=== PATIENT | female | born 1945 | race Caucasian/White ===

== ENCOUNTER 2016-08-09 07:09 | Day surgery (SDC) | payer MEDICARE ==
[2016-08-09] MEDS ORDERED: LACTATED RINGERS 1,000 ML IV ONE (07:20)
[2016-08-09] MEDS ORDERED: BSS/LIDOCAINE/EPINEPHRINE 1 ML SYRINGE IO ONE ×2 (08:37)
[2016-08-09] MEDS ORDERED: PROPARACAINE 0.5% OPHTH DROPS 15 ML OPTH ONE (08:37)
[2016-08-09] MEDS ORDERED: CHONDR SULF/HYALURONATE SYRINGE IO ONE (08:37)
[2016-08-09] MEDS ORDERED: TETRACAINE 0.5% OPHTH DROPS 4 ML OPTH ONE (08:37)
[2016-08-09] MEDS ORDERED: levoFLOXacin 0.5% OPHTH DROPS 5 ML OPTH ONE (08:37)
[2016-08-09] MEDS ORDERED: EPINEPHrine 1 MG/ML AMP IO ONE (08:37)
[2016-08-09] MEDS ORDERED: MIDAZOLAM 2 MG/2 ML VIAL IVP ONE (08:48)
== END 2016-08-09 07:10 | disposition home or self-care (01) ==
PROC: 08RK3JZ Replacement of Left Lens with Synthetic Substitute, Percutaneous Approach (ICD-10-PCS; principal; 2016-08-09 08:15)
DX: H26.9 Unspecified cataract (principal); E78.5 Hyperlipidemia, unspecified; I10 Essential (primary) hypertension; Z79.82 Long term (current) use of aspirin
CPT/HCPCS: 66984; 93005; J7120; V2632

== ENCOUNTER 2016-08-23 06:11 | Day surgery (SDC) | payer MEDICARE ==
[2016-08-23] MEDS ORDERED: TROPICAMIDE 1% OPHTH 2 ML DROPS OPTH ONE (06:40)
[2016-08-23] MEDS ORDERED: KETOROLAC 0.45% OPHTH DROPS OPTH ONE (06:40)
[2016-08-23] MEDS ORDERED: CYCLOPENTOLATE 1% OPHTH DROPS 2 ML OPTH ONE (06:40)
[2016-08-23] MEDS ORDERED: LACTATED RINGERS 500 ML IV ONE (06:41)
[2016-08-23] MEDS ORDERED: ePHEDrine 50 MG/ML AMP IVP ONE (07:30)
[2016-08-23] MEDS ORDERED: MIDAZOLAM 2 MG/2 ML VIAL IVP ONE (07:30)
[2016-08-23] MEDS ORDERED: LIDOCAINE-MPF 2% 5 ML VIAL IM ONE (07:30)
[2016-08-23] MEDS ORDERED: PROPARACAINE 0.5% OPHTH DROPS 15 ML OPTH ONE (07:46)
[2016-08-23] MEDS ORDERED: BRIMONIDINE 0.2% OPHTH DROPS 5 ML OPTH ONE (07:46)
[2016-08-23] MEDS ORDERED: EPINEPHrine 1 MG/ML AMP IO ONE (07:46)
[2016-08-23] MEDS ORDERED: TETRACAINE 0.5% OPHTH DROPS 4 ML OPTH ONE (07:46)
[2016-08-23] MEDS ORDERED: levoFLOXacin 0.5% OPHTH DROPS 5 ML OPTH ONE (07:46)
[2016-08-23] MEDS ORDERED: CHONDR SULF/HYALURONATE SYRINGE IO ONE (07:47)
[2016-08-23] MEDS ORDERED: BSS/LIDOCAINE/EPINEPHRINE 1 ML SYRINGE IO ONE (07:47)
== END 2016-08-23 06:12 | disposition home or self-care (01) ==
PROC: 08RJ3JZ Replacement of Right Lens with Synthetic Substitute, Percutaneous Approach (ICD-10-PCS; principal; 2016-08-23 07:30)
DX: H25.11 Age-related nuclear cataract, right eye (principal); I10 Essential (primary) hypertension; Z79.82 Long term (current) use of aspirin; Z98.42 Cataract extraction status, left eye
CPT/HCPCS: 66984; V2632

== ENCOUNTER 2017-06-05 15:04 | Outpatient (CLI) | payer MEDICARE ==
--- NOTE | 2017-06-08 10:26 | Mammography Report ---
DATE OF SERVICE: 06/05/2017 DIGITAL SCREENING MAMMOGRAM: 06/05/2017. CLINICAL INDICATION: A 72-year-old nulliparous patient for screening. COMPARISON: 04/2016, 04/2015, 04/2014, 05/2012, 02/2011, 12/2009. TECHNIQUE: Routine CC and MLO projections were obtained of the breasts. FINDINGS: Parenchymal tissue within both breasts is heterogeneously dense, which may lower the sensi tivity of mammography; however, there are no dominant masses, suspicious microcalcifications, or secondary sign s of malignancy. In comparison to the previous studies, there are no significant changes. ASSESSMENT: NO MAMMOGRAPHIC EVIDENCE OF MALIGNANCY. NO SIGNIFICANT INTERVAL CHANGES. RECOMMENDATION: Screening mammography is recommended annually. BIRADS category 1 - Negative. STANDARD QUALIFYING STATEMENTS 1. This examination was reviewed with the aid of Computed Aided Detection (CAD). 2. A negative x-ray report should not delay biopsy if a dominant or clinically suspicious mass is pre sent. More than 5% of cancers are not identified by x-ray. 3. Dense breasts may obscure an underlying neoplasm. TD: 06/06/2017 18:41
== END 2017-06-05 15:05 | disposition home or self-care (01) ==
LOC: DI 15:04
PROVIDERS: ATTEND Family Medicine
DX: Z12.31 Encounter for screening mammogram for malignant neoplasm of breast (principal)
CPT/HCPCS: 77067

== ENCOUNTER 2018-05-06 10:37 | Outpatient (CLI) | payer MEDICARE ==
--- NOTE | 2018-05-07 09:13 | DEXA Report ---
Reason: ASYMPTOMATIC MENOPAUSAL STATE Procedure Date: 05/06/2018 Accession Number: [id number] / [id number] Procedure: DEX - Dexa Spine and/or Hip CPT Code: FULL RESULT: EXAM: Dexa Spine and/or Hip DATE: 05/06/2018 11:08 AM CLINICAL HISTORY: ASYMPTOMATIC MENOPAUSAL STATE TECHNIQUE: Dual energy x-ray absorptiometry (DXA) was performed on a [employer] System. Regions measured are the AP Spine, femoral neck, and if needed forearm. COMPARISON: 04/27/2016. In accordance with the International Society for Clinical Densitometry (ISCD) guidelines, data from previous exams may be reanalyzed using current recommendations and techniques. This is done to allow a more accurate basis for comparison with the current study. FINDINGS: The data for the lumbar spine is as follows: BMD (g/cm/cm) T-SCORE Z-SCORE REGION L1 1.081 -0.4 1.4 L2 1.131 -0.6 1.3 L3 1.275 0.6 2.5 L4 1.368 1.4 3.3 TOTAL 1.233 0.4 2.3 NOTE: All evaluable vertebrae are used for classification The data for the hip is as follows: BMD (g/cm/cm) T-SCORE Z-SCORE REGION Neck 0.782 -1.8 0.1 TOTAL 0.925 -0.7 1.1 NOTE: The femoral neck or total proximal femur, whichever is lowest, is used for classification. DXA RESULTS SUMMARY: Spine SCAN DATE AGE BMD CHANGE VS CHANGE VS PREVIOUS PREVIOUS % [birth year]06[birth year]2018 [age] 1[age]233 0.000 0.0 04/27/2016 [age] 1.233 * Denotes significant change at the 95% confidence level. Denotes dissimilar scan types or analysis methods. DXA RESULTS SUMMARY: Hip SCAN DATE AGE BMD CHANGE VS CHANGE VS PREVIOUS PREVIOUS % [birth year]06[birth year]2018 73.1 0.925 -0.004 -0.4 04/27/2016 [age] 0.929 * Denotes significant change at the 95% confidence level. Denotes dissimilar scan types or analysis methods. IMPRESSION: THE WHO CLASSIFICATION BASED ON THE INTERNATIONAL REFERENCE STANDARD IS OSTEOPENIA. THE FRACTURE RISK IS INCREASED. RECOMMENDATION: Patients with diagnosis of osteoporosis or osteopenia should have regular bone mineral density assessment. For those eligible for Medicare, routine testing is allowed once every 2 years. Testing frequency can be increased for patients who have rapidly progressing disease or for those who are receiving medical therapy to restore bone mass. COMMENT: World Health Organization (WHO) definitions for osteoporosis and osteopenia: NORMAL BMD: T-score at -1.0 or higher, fracture risk is low OSTEOPENIA BMD: T-score between -1.0 and -2.5, fracture risk is increased. OSTEOPOROSIS BMD: T-score at -2.5 or lower, fracture risk is high. National Osteoporosis Foundation recommends: 1. Obtain adequate dietary calcium (at least 1200 mg per day) and vitamin D (400-800 international units per day). 2. Participate, as appropriate, in regular weightbearing and muscle-strengthening exercise. 3. Avoid tobacco use and reduce alcohol and caffeine intake. 4. For more detailed information see the website at www.NOF.org.
== END 2018-05-06 10:38 | disposition home or self-care (01) ==
LOC: DI 10:37
PROVIDERS: ATTEND Family Medicine
DX: M85.88 Other specified disorders of bone density and structure, other site (principal)
CPT/HCPCS: 77080

== ENCOUNTER 2018-05-06 10:41 | Outpatient (CLI) | payer MEDICARE ==
--- NOTE | 2018-05-07 08:42 | Mammography Report ---
Reason: SCREENING MAMMO Procedure Date: 05/06/2018 Accession Number: [id number] / [id number] Procedure: SERGIO - Screening Mammo w/Jt CPT Code: FULL RESULT: EXAM: Screening Mammo w/Jt DATE: 05/06/2018 11:51 AM CLINICAL HISTORY: 73 year-old nulliparous female with history of early menses presents for screening. TECHNIQUE: Bilateral CC and MLO views were obtained. COMPARISON: 06/05/2017, 04/27/2016, 05/07/2015, 04/16/2014. FINDINGS: The breasts demonstrate heterogeneously dense fibroglandular parenchyma bilaterally. A coarse typically benign calcification in the left breast is stable. No suspicious masses, clustered microcalcifications, or regions of architectural distortion are identified. IMPRESSION: Benign findings RECOMMENDATION: Routine annual screening unless otherwise clinically indicated. BIRADS CATEGORY 2: Benign findings STANDARD QUALIFYING STATEMENTS: 1. This examination was not reviewed with the aid of Computer-Aided Detection (CAD). 2. A negative or benign imaging report should not delay biopsy if clinically suspicious findings are present. Consider surgical consultation if warranted. More than 5% of cancers are not identified by imaging. 3. Dense breasts may obscure an underlying neoplasm. 4. This examination was reviewed with the aid of 3D breast imaging (tomosynthesis).
== END 2018-05-06 10:42 | disposition home or self-care (01) ==
LOC: DI 10:41
DX: Z12.31 Encounter for screening mammogram for malignant neoplasm of breast (principal)
CPT/HCPCS: 77063; 77067

== ENCOUNTER 2018-08-16 11:06 | Outpatient (CLI) | payer MEDICARE ==
--- NOTE | 2018-08-16 15:13 | Ultrasound Report ---
Reason: RENAL INSUFFICIENCY, HTN Procedure Date: 08/16/2018 Accession Number: [id number] / [id number] Procedure: US - Retroperitoneal CPT Code: FULL RESULT: EXAM: RENAL ULTRASOUND EXAM DATE: 08/16/2018 12:40 PM. CLINICAL HISTORY: Renal insufficiency, hypertension. COMPARISON: None. TECHNIQUE: Real-time scanning was performed with static images obtained. FINDINGS: Right Kidney: 8.8 cm. A few nonobstructing calculi measuring up to 0.4 cm are noted. No hydronephrosis. Left Kidney: 9.9 cm. Simple renal cyst, up to 1.9 cm. No hydronephrosis. Bladder: Bilateral jets seen. The prevoid bladder volume was 95 cc. The postvoid bladder volume was 12 cc. Other: None. IMPRESSION: Small right nonobstructing renal calculi and no hydronephrosis. No bladder outlet obstruction. RADIA
== END 2018-08-16 11:07 | disposition home or self-care (01) ==
LOC: DI 11:06
PROVIDERS: ATTEND Family Medicine
DX: N20.0 Calculus of kidney (principal); N28.9 Disorder of kidney and ureter, unspecified; I10 Essential (primary) hypertension
CPT/HCPCS: 76770

== ENCOUNTER 2019-04-18 08:04 | Outpatient (CLI) | payer MEDICARE ==
[2019-04-18 13:39] LABS: BASOPHILS # (AUTO) 0.1 10^3/uL (0.0-0.1); BASOPHILS % (AUTO) 0.9 %; EOSINOPHILS # (AUTO) 0.3 10^3/uL (0.0-0.7); EOSINOPHILS % (AUTO) 4.1 %; HGB - HEMOGLOBIN 13.3 g/dL (12.0-16.0); LYMPHOCYTES # (AUTO) 2.2 10^3/uL (1.5-3.5); LYMPHOCYTES % (AUTO) 30.8 %; MEAN CORPUSCULAR HEMOGLOBIN 31.7 pg (27.0-31.0); MEAN CORPUSCULAR HGB CONC 33.5 g/dL (32.0-36.0); MEAN CORPUSCULAR VOLUME 94.5 fL (81.0-99.0); MEAN PLATELET VOLUME 11.3 fL (7.9-10.8); MONOCYTES # (AUTO) 0.5 10^3/uL (0.0-1.0); MONOCYTES % (AUTO) 7.7 %; NEUTROPHILS # (AUTO) 3.9 10^3/uL (1.5-6.6); NEUTROPHILS % (AUTO) 56.1 %; PLT - PLATELET COUNT 293 10^3/uL (130-450); RED CELL DISTRIBUTION WIDTH 12.8 % (12.0-15.0)
[2019-04-18 14:32] LABS: ALBUMIN 3.8 g/dL (3.2-5.5); ALBUMIN/GLOBULIN RATIO 1.3 (1.0-2.2); ALKALINE PHOSPHATASE 51 IU/L (42-121); ALT ALANINE AMINOTRANSFERASE 22 IU/L (10-60); AST ASPARTATE AMINOTRANSFERASE 23 IU/L (10-42); BILIRUBIN,TOTAL 0.6 mg/dL (0.2-1.0); BUN - BLOOD UREA NITROGEN 24 mg/dL (6-20); CALCIUM 9.2 mg/dL (8.5-10.3); CARBON DIOXIDE - CO2 28 mmol/L (21-32); CHLORIDE 101 mmol/L (101-111); CHOL/HDL RATIO 3.2 (<4.4); CHOLESTEROL 195 mg/dL; CREATININE 0.9 mg/dL (0.4-1.0); GFR - MDRD 61 (>89); GLUCOSE 92 mg/dL (70-100); HDL CHOLESTEROL 61 mg/dL; LDL CHOLESTEROL,CALCULATED 114 mg/dL; LDL/HDL RATIO 1.9 (<4.4); SODIUM 136 mmol/L (135-145); TOTAL PROTEIN 6.8 g/dL (6.7-8.2); VLDL CHOLESTEROL 20 mg/dL
== END 2019-04-18 23:59 | disposition home or self-care (01) ==
LOC: LAB.WCP 08:04
PROVIDERS: ATTEND Family Medicine
DX: N28.9 Disorder of kidney and ureter, unspecified (principal); I10 Essential (primary) hypertension; E78.5 Hyperlipidemia, unspecified
CPT/HCPCS: 36415; 80053; 80061; 83721; 85025

== ENCOUNTER 2019-05-05 11:55 | Outpatient (CLI) | payer MEDICARE ==
--- NOTE | 2019-05-05 15:49 | MRI Report ---
Reason: HEADACHE, FAM HISTORY OF CEREBRAL ANEURYSM Procedure Date: 05/05/2019 Accession Number: [id number] / [id number] Procedure: MRI - Angio Brain W/O (MRA) CPT Code: Final Report FULL RESULT: EXAM MRA BRAIN EXAM DATE: 05/05/2019 01:01 PM. CLINICAL HISTORY: Headache, family history of cerebral aneurysm. COMPARISON: None. TECHNIQUE: Multiplanar, multisequence MRA sequences of the brain were performed. Other: None. Post-processing: Multiplanar 3D MIP reconstructions. IV Contrast: None. FINDINGS: The cerebral vascular flow voids are patent. There is a mild degree of generalized volume loss. The right vertebral artery intradural segment is smooth and nonstenotic. The left vertebral artery intradural segment is smooth and nonstenotic. The left posterior-inferior cerebellar artery is without flow-limiting stenosis. The right posterior inferior cerebellar artery is without flow-limiting stenosis. The basilar artery is without flow-limiting stenosis. There are small bilateral anterior inferior cerebellar arteries suggested. Overall, they are somewhat poorly demonstrated which is secondary to their small size. Therefore, their evaluation is limited. The right posterior communicating artery is without flow-limiting stenosis. The right P1 and P2 segments of the right posterior cerebral artery are without flow-limiting stenosis. There is a mild conical outpouching at the origin of the left posterior communicating artery measuring approximately 2 x 2 mm. The differential diagnosis would include infundibulum versus small saccular aneurysm. Overall infundibulum would be somewhat favored. There is mild conical outpouching at the origin of the right posterior communicating artery measuring 1.5 x 1.5 mm. The differential diagnosis would include infundibulum versus small saccular aneurysm. The left P1 and P2 segments of the left posterior cerebral artery are without flow-limiting stenosis. The left intracranial internal carotid artery is smooth and nonstenotic. The right intracranial internal carotid artery is smooth and nonstenotic. The right M1 and proximal M2 segments of the right middle cerebral artery are smooth and nonstenotic. The left M1 and proximal M2 segments of the left middle cerebral artery are smooth and nonstenotic. The right A1 segment is smooth and nonstenotic. The left A1 segment is smooth and nonstenotic. There is a suggestion of a small anterior communicating artery. There is superimposed motion at this level. The right A2 segment of the right anterior cerebral artery is smooth and nonstenotic. The left A2 segment of the left anterior cerebral artery is smooth and nonstenotic. IMPRESSION: 1. There are small areas of conical outpouching at the origins of the right and left posterior communicating arteries measuring 1.5 x 1.5 and 2 x 2 mm, respectively. The differential diagnosis would include infundibuli versus small saccular aneurysms. 2. There is no hemodynamically significant stenosis within the head.
== END 2019-05-05 11:56 | disposition home or self-care (01) ==
LOC: DI 11:55
PROVIDERS: ATTEND Family Medicine
DX: R51 Headache (principal); R90.89 Other abnormal findings on diagnostic imaging of central nervous system; Z82.49 Family history of ischemic heart disease and other diseases of the circulatory system
CPT/HCPCS: 70544

== ENCOUNTER 2019-05-05 11:56 | Outpatient (CLI) | payer MEDICARE ==
[2019-05-05 19:05] LABS: BILIRUBIN,URINE NEGATIVE (NEGATIVE); GLUCOSE, URINE (UA) NEGATIVE (NEGATIVE); KETONES,URINE (UA) NEGATIVE (NEGATIVE); LEUKOCYTE ESTERASE, URINE NEGATIVE (NEGATIVE); NITRITE,URINE NEGATIVE (NEGATIVE); OCCULT BLOOD,URINE NEGATIVE (NEGATIVE); PH,URINE 7.5 PH (5.0-7.5); PROTEIN,URINE NEGATIVE (NEGATIVE); UROBILINOGEN,URINE 0.2 (NORMAL) E.U./dL (NORMAL)
[2019-05-05 19:06] LABS: CLARITY,URINE CLEAR (CLEAR)
== END 2019-05-05 23:59 | disposition home or self-care (01) ==
LOC: LAB.WCP 11:56
PROVIDERS: ATTEND Nurse Practitioner Family
DX: R35.0 Frequency of micturition (principal)
CPT/HCPCS: 81001; 81003; 87086

== ENCOUNTER 2019-05-26 12:23 | Outpatient (CLI) | payer MEDICARE ==
--- NOTE | 2019-05-27 13:40 | Mammography Report ---
Reason: ANNUAL MAMMOGRAM Procedure Date: 05/26/2019 Accession Number: [id number] / [id number] Procedure: MGN - Screening Mammo Dig Bilat CPT Code: Final Report FULL RESULT: EXAM: Screening Mammo Dig Bilat DATE: 05/26/2019 12:44 PM CLINICAL HISTORY: Routine screening. Nulliparous patient. TECHNIQUE: (B) - Bilateral CC and MLO views were obtained. COMPARISON: 05/06/2018, 06/05/2017, 04/27/2016, 05/07/2015, 04/16/2014, 05/31/2012 and 03/02/2011. PARENCHYMAL PATTERN: (D) - The breasts demonstrate heterogeneously dense fibroglandular parenchyma bilaterally. FINDINGS: No significant interval change. There are no suspicious masses, calcifications, or areas of distortion. IMPRESSION: Negative examination. BI-RADS category 1. RECOMMENDATION: (ANNUAL) - Recommend routine annual screening mammography. BI-RADS CATEGORY: (1) - Negative. STANDARD QUALIFYING STATEMENTS: 1. This examination was not reviewed with the aid of Computer-Aided Detection (CAD). 2. A negative or benign imaging report should not preclude biopsy if clinically suspicious findings are present. 3. Dense breasts may obscure an underlying neoplasm. 4. This examination was reviewed without the aid of 3D breast imaging (tomosynthesis).
== END 2019-05-26 12:24 | disposition home or self-care (01) ==
LOC: DI.N 12:23
DX: Z12.31 Encounter for screening mammogram for malignant neoplasm of breast (principal)
CPT/HCPCS: 77067

== ENCOUNTER 2019-11-13 16:03 | Emergency (ER) | payer MEDICARE ==
[2019-11-13 16:46] LABS: BASOPHILS % (AUTO) 0.4 %; EOSINOPHILS % (AUTO) 0.3 %; HGB - HEMOGLOBIN 13.1 g/dL (12.0-16.0); LYMPHOCYTES # (AUTO) 0.9 10^3/uL (1.5-3.5); LYMPHOCYTES % (AUTO) 8.6 %; MEAN CORPUSCULAR HEMOGLOBIN 31.3 pg (27.0-31.0); MEAN CORPUSCULAR HGB CONC 34.7 g/dL (32.0-36.0); MEAN CORPUSCULAR VOLUME 90.2 fL (81.0-99.0); MEAN PLATELET VOLUME 10.1 fL (7.9-10.8); MONOCYTES # (AUTO) 0.7 10^3/uL (0.0-1.0); MONOCYTES % (AUTO) 6.6 %; NEUTROPHILS # (AUTO) 9.1 10^3/uL (1.5-6.6); NEUTROPHILS % (AUTO) 83.6 %; PLT - PLATELET COUNT 341 10^3/uL (130-450); RED BLOOD COUNT 4.18 10^6/uL (4.20-5.40); RED CELL DISTRIBUTION WIDTH 12.2 % (12.0-15.0); WHITE BLOOD COUNT 10.9 x10^3/uL (4.8-10.8)
[2019-11-13 16:58] LABS: ALBUMIN 3.6 g/dL (3.2-5.5); ALBUMIN/GLOBULIN RATIO 0.9 (1.0-2.2); BILIRUBIN,TOTAL 0.5 mg/dL (0.2-1.0); CALCIUM 8.7 mg/dL (8.5-10.3); CREATININE 1.2 mg/dL (0.4-1.0); TOTAL PROTEIN 7.5 g/dL (6.7-8.2)
[2019-11-13] MEDS ORDERED: SODIUM CHLORIDE 0.9% 1,000 ML IV STA (17:47)
[2019-11-13 17:53] LABS: BILIRUBIN,URINE NEGATIVE (NEGATIVE); GLUCOSE, URINE (UA) NEGATIVE (NEGATIVE); KETONES,URINE (UA) NEGATIVE (NEGATIVE); LEUKOCYTE ESTERASE, URINE TRACE (NEGATIVE); NITRITE,URINE NEGATIVE (NEGATIVE); OCCULT BLOOD,URINE TRACE-LYSE (NEGATIVE); PROTEIN,URINE NEGATIVE (NEGATIVE); UROBILINOGEN,URINE 0.2 (NORMAL) E.U./dL (NORMAL)
[2019-11-13 17:59] LABS: CLARITY,URINE HAZY (CLEAR)
[2019-11-13 18:05] LABS: BACTERIA,URINE Moderate /HPF (None Seen); RBC,URINE 0-5 /HPF (0-5); SQUAMOUS EPITHELIAL CELL,UR FEW Squamous (<= Few)
--- NOTE | 2019-11-13 18:09 | ED Physician Documentation ---
History of Present Illness - Stated complaint Stated Complaint: FEVER/DIZZINESS - Chief complaint Chief Complaint: General - History obtained from History obtained from: Patient - Additonal information Additional information: Patient comes emergency department complaining of fever and fatigue over the last several days. Patient states that she started with a bump in front of her red right ear and that this went away after a day or two. She never experienced any drainage or swelling of the flesh, but she states that after this resolved, over the next couple of days, she began to feel fatigued and generally sick. She states she has been in bed for the last several days, and running temperatures up to 102-103 every day. She states that she has not had any nausea or vomiting. No back or abdominal pain. No dysuria, but patient does state that she feels as though she is not able to urinate until she begins to dribble urine because her bladder is full. She denies any cough. No sore throa t or rhinorrhea. No chest pain or shortness of breath. No other complaints at this time. Review of Systems Ten Systems: 10 systems reviewed and negative Constitutional: reports: Fever, Myalgias, Fatigue Eyes: reports: Reviewed and negative Ears: reports: Reviewed and negative Nose: reports: Reviewed and negative Throat: reports: Reviewed and negative Cardiac: reports: Reviewed and negative Respiratory: reports: Reviewed and negative GI: reports: Reviewed and negative : reports: Reviewed and negative Skin: reports: Reviewed and negative Musculoskeletal: reports: Reviewed and negative Neurologic: reports: Reviewed and negative Psychiatric: reports: Reviewed and negative Endocrine: reports: Reviewed and negative Immunocompromised: reports: Reviewed and negative PD PAST MEDICAL HISTORY - Past Medical History Cardiovascular: Hypertension, Murmur, Arrhythmia Respiratory: None Endocrine/Autoimmune: None GI: None, Hemorrhoids : None HEENT: Chronic vision loss Psych: None Musculoskeletal: None Derm: Psoriasis - Past Surgical History /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: Hysterectomy HEENT: Cataracts, Other - Present Medications Home Medications: Ambulatory Orders Medication Instructions Recorded Confirmed Aspirin [Aspir 81] 81 mg PO DAILY 05/25/14 08/23/16 Ca/D3/Mag/Zinc/Michelle/Srinivas/Mgbor 2 each PO DAILY 05/25/14 08/23/16 [Caltrate 600+D3+Min Chew Tab] Cholecalciferol (Vitamin D3) 1,000 unit PO DAILY 05/25/14 08/23/16 [] Triamterene/Hydrochlorothiazid 37.5 each PO DAILY 05/25/14 08/23/16 [Triamterene-Hctz 75-50 mg Tab] Losartan Potassium 100 mg PO DAILY 08/23/16 08/23/16 Levofloxacin [Levaquin] 500 mg PO DAILY 10 Days #10 tablet 11/13/19 - Allergies Allergies/Adverse Reactions: Allergies Allergy/AdvReac Type Severity Reaction Status Date / Time adhesive AdvReac Rash Verified 11/13/19 16:22 amoxicillin trihydrate * AdvReac Hives Verified 11/13/19 16:22 [From Augmentin] potassium clavulanate * AdvReac Hives Verified 11/13/19 16:22 [From Augmentin] sulfamethoxazole AdvReac Hives Verified 11/13/19 16:22 [From Septra] trimethoprim [From Septra] AdvReac Hives Verified 11/13/19 16:22 PD ED PE NORMAL - Vitals Vital signs reviewed: Yes - General General: Alert and oriented X 3, No acute distress, Well developed/nourished - HEENT HEENT: Atraumatic, PERRL, EOMI, Moist mucous membranes - Neck Neck: Supple, no meningeal sign - Cardiac Cardiac: RRR, No murmur, Strong equal pulses - Respiratory Respiratory: No respiratory distress, Clear bilaterally - Abdomen Abdomen: Soft, Non tender, Non distended - Back Back: No CVA TTP - Derm Derm: Normal color, Warm and dry, No rash - Extremities Extremities: No deformity, No edema - Neuro Neuro: Alert and oriented X 3, Other (Grossly normal) - Psych Psych: Normal mood, Normal affect Results - Vitals Vitals: Vital Signs - 24 hr 11/13/19 11/13/19 11/13/19 16:16 19:25 19:34 Temperature 36.5 C 37.5 C Heart Rate 64 76 Respiratory 16 17 18 Rate Blood Pressure 129/60 151/75 H O2 Saturation 97 98 11/13/19 11/13/19 19:55 19:58 Temperature Heart Rate Respiratory 17 17 Rate Blood Pressure O2 Saturation Oxygen O2 Source Room air - Labs Labs: Laboratory Tests 11/13/19 11/13/19 11/13/19 16:38 16:38 17:30 WBC 10.9 H RBC 4.18 L Hgb 13.1 Hct 37.7 MCV 90.2 MCH 31.3 H MCHC 34.7 RDW 12.2 Plt Count 341 MPV 10.1 Neut # (Auto) 9.1 H Lymph # (Auto) 0.9 L Centre # (Auto) 0.7 Eos # (Auto) 0.0 Baso # (Auto) 0.0 Absolute Nucleated RBC 0.00 Nucleated RBC % 0.0 Sodium 123 L Potassium 3.3 L Chloride 86 L Carbon Dioxide 24 Anion Gap 13.0 BUN 22 H Creatinine 1.2 H Estimated GFR (MDRD) 44 L Glucose 123 H Calcium 8.7 Total Bilirubin 0.5 AST 33 ALT 36 Alkaline Phosphatase 78 Total Protein 7.5 Albumin 3.6 Globulin 3.9 Albumin/Globulin Ratio 0.9 L Lipase 33 Urine Color YELLOW Urine Clarity HAZY Urine pH 7.0 Ur Specific [place] 1.010 Urine Protein NEGATIVE Urine Glucose (UA) NEGATIVE Urine Ketones NEGATIVE Urine Occult Blood TRACE-LYSE Urine Nitrite NEGATIVE Urine Bilirubin NEGATIVE Urine Urobilinogen 0.2 (NORMAL) Ur Leukocyte Esterase TRACE H Urine RBC 0-5 Urine WBC 6-10 H Ur Squamous Epith Cells FEW Squamous Urine Bacteria Moderate H Ur Microscopic Review INDICATED Urine Culture Comments INDICATED - Rads (name of study) cxr Radiology: Final report received, EMP read indepedently, See rad report (Left lower lobe infiltrate) PD MEDICAL DECISION MAKING - ED course Complexity details: reviewed results, re-evaluated patient, considered differential, d/w patient ED course: Patient was worked up with labs, urinalysis, and chest x-ray. I had received a call from urgent care who had seen the patient before she came here and they stated that they had already done patient's COVID testing. Patient was noted to have a left lower lobe infiltrate and a mild UTI. The patient was started on Levaquin in the emergency department. She was very well-appearing and was feeling better after IV fluids, and I felt she was stable for discharge home. We have discussed that if she develops worsening breathing or in any way feels worse, she should return to the emergency department immediately. Otherwise, she may follow-up with her primary care physician. Departure - Departure Disposition: 01 Home, Self Care Clinical Impression: Pneumonia Qualifiers: Pneumonia type: due to unspecified organism Laterality: left Lung location: lower lobe of lung Qualified Code(s): J18.9 - Pneumonia, unspecified organism Urinary tract infection Qualifiers: Urinary tract infection type: acute cystitis Hematuria presence: without hematuria Qualified Code(s): N30.00 - Acute cystitis without hematuria Condition: Stable Instructions: ED Pneumonia Adult, ED UTI Cystitis Female Prescriptions: Levofloxacin [Levaquin] 500 mg PO DAILY 10 Days #10 tablet Comments: Your blood work looks good. Your chest x-ray shows pneumonia in the left lower portion of your lung, and your urinalysis shows mild infection. Fortunately, these may both be treated with the same antibiotic. Please continue to drink plenty of fluids at home and get rest as needed. Be sure you are taking plenty of deep breaths to keep your lungs aerated, as this will help to aid the antibiotics and getting rid of infection. You may treat your fevers with Tylenol 650 mg every 4 hours and ibuprofen 600 mg every 6 hours. You may use just Tylenol or just ibuprofen if one of them alone keeps the fever under control. Please follow-up with your primary care physician if you are not feeling better after the weekend. Discharge Date/Time: 11/13/19 20:05
--- NOTE | 2019-11-13 18:54 | XRAY Report ---
Reason: cough Procedure Date: 11/13/2019 Accession Number: [id number] / [id number] Procedure: XR - Chest 2 View X-Ray CPT Code: 84125 Final Report FULL RESULT: PROCEDURE: Chest 2 View X-Ray INDICATIONS: cough TECHNIQUE: 2 view(s) of the chest. COMPARISON: None. FINDINGS: Surgical changes and devices: None. Lungs and pleura: There are confluent left lower lobe perihilar opacities consistent with consolidation. Right lung is clear. No pleural effusions or pneumothorax. Mediastinum: Mediastinal contours are normal. Heart size is normal. Bones and chest wall: No suspicious bony abnormalities. Soft tissues appear unremarkable. IMPRESSION: 1. Left lower lobe perihilar consolidation consistent with pneumonia given clinical history. Reviewed by: Estrada Nur MD on 11/13/2019 6:52 PM PDT Approved by: Estrada Nur MD on 11/13/2019 6:52 PM PDT Station ID: [id number]
[2019-11-13] MEDS ORDERED: levoFLOXacin 250 MG TABLET PO STA (19:15)
[2019-11-13 19:35] VITALS: BP 151/75
== END 2019-11-13 20:05 | disposition home or self-care (01) ==
LOC: ED 16:03
DX: J18.9 Pneumonia, unspecified organism (principal); N30.00 Acute cystitis without hematuria; I10 Essential (primary) hypertension; Z79.82 Long term (current) use of aspirin
CPT/HCPCS: 36415; 71046; 80053; 81001; 83690; 85025; 87086; 99284; A9270; 81003

== ENCOUNTER 2020-05-18 08:27 | Outpatient (CLI) | payer MEDICARE ==
--- NOTE | 2020-05-18 09:12 | DEXA Report ---
PROCEDURE: Dexa Spine and/or Hip INDICATIONS: BONE DISORDER TECHNIQUE: Dual energy x-ray absorptiometry (DXA) was performed on a [employer] System. Regions measur ed are the AP Spine, femoral neck, and if needed forearm. COMPARISON: 05/06/2018. FINDINGS: Lumbar Spine: Bone Mineral Density 1.167 g/cm/cm,T score -0.1, there is 5.4% decrease in total lumbar spine bone mineral density since previous study. 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 Left Femoral Neck: Bone Mineral Density 0.723 g/cm/cm, T score -2.3. (T score greater or equal to -1.0: NORMAL) (T score from -1.1 to -2.4: OSTEOPENIA) (T score less than or equal to -2.5 to: OSTEOPOROSIS) Impression: Osteopenia. Patients with diagnosis of osteoporosis or osteopenia should have regular bone mineral density assess ment. For those eligible for Medicare, routine testing is allowed once every 2 years. Testing frequ ency can be increased for patients who have rapidly progressing disease or for those who are receivin g medical therapy to restore bone mass. Reviewed by: Barber Gifford MD on 05/18/2020 8:11 AM [facility] Approved by: Barber Gifford MD on 05/18/2020 8:11 AM [facility] Station ID: [id number]
== END 2020-05-18 08:28 | disposition home or self-care (01) ==
LOC: DI 08:27
PROVIDERS: ATTEND Family Medicine
DX: M85.88 Other specified disorders of bone density and structure, other site (principal)

== ENCOUNTER 2020-07-15 13:05 | Outpatient (CLI) | payer MEDICARE ==
--- NOTE | 2020-07-16 07:58 | Mammography Report ---
BILATERAL DIGITAL SCREENING MAMMOGRAM 3D/2D: 07/15/2020 CLINICAL: Routine screening. Comparison is made to exams dated: 05/26/2019 mammogram, 05/06/2018 mammogram, and 06/05/2017 mammog [facility]. The tissue of both breasts is heterogeneously dense. This may lo wer the sensitivity of mammography. No significant masses, calcifications, or other findings are seen in either breast. There has been no significant interval change. IMPRESSION: NEGATIVE There is no mammographic evidence of malignancy. A 1 year screening mammogram is recommended. This exam was interpreted at Station ID: [id number]. NOTE: For mammograms, a report in lay terms will be sent to the patient. Approximately 15% of breast malignancies will not be visualized mammographically. In the management of a palpable breast mass, a negative mammogram must not discourage biopsy of a clinically suspicious lesion. Electronically Signed By: Darrin Hernandez M.D. [email or web address]/[email or web address]:07/15/2020 13:36:49 ACR BI-RADS Category 1: Negative [id number] PARENCHYMAL PATTERN: (D) - The breast(s) demonstrate(s) heterogeneously dense fibroglandular p[place]. BI-RADS CATEGORY: (1) - 1 RECOMMENDATION: (ANNUAL) - Recommend routine annual screening mammography. [id number] 1 year screening LATERALITY: (B)
== END 2020-07-15 13:06 | disposition home or self-care (01) ==
LOC: DI.N 13:05
DX: Z12.31 Encounter for screening mammogram for malignant neoplasm of breast (principal)

== ENCOUNTER 2020-07-31 20:00 | Emergency (ER) | payer MEDICARE ==
[2020-07-31 20:10] VITALS: BP 150/100
[2020-07-31] MEDS ORDERED: EPINEPHrine ABBOJECT 1 MG/10 ML SYRINGE IVP STA (20:18)
[2020-07-31] MEDS ORDERED: AMIODARONE 150 MG/100 ML 100 ML IV ONE (20:19)
[2020-07-31] MEDS ORDERED: AMIODARONE 150 MG/3 ML VIAL IVP STA (20:19)
--- NOTE | 2020-07-31 20:22 | ED Physician Documentation ---
PD HPI CPR - Stated complaint Stated Complaint: FAST HR, LT ARM DISCOMFORT - Chief complaint Chief Complaint: Cardiac - History obtained from History obtained from: Patient - Additional information Additional information: This is a 75-year-old woman who came in tonight because she felt like her heart rate was rapid and she had some left arm discomfort. It started tonight around 730. She had similar episodes in the past with negative work-ups. Of note the history was further limited because she arrested while we were talking. 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 HEENT: Cataracts, Other - Present Medications Home Medications: Ambulatory Orders Medication Instructions Recorded Confirmed Aspirin [Aspir 81] 81 mg PO DAILY 05/25/14 08/23/16 Ca/D3/Mag/Zinc/Michelle/Srinivas/Mgbor 2 each PO DAILY 05/25/14 08/23/16 [Caltrate 600+D3+Min Chew Tab] Cholecalciferol (Vitamin D3) 1,000 unit PO DAILY 05/25/14 08/23/16 [D-2000] Triamterene/Hydrochlorothiazid 37.5 each PO DAILY 05/25/14 08/23/16 [Triamterene-Hctz 75-50 mg Tab] Losartan Potassium 100 mg PO DAILY 08/23/16 08/23/16 Levofloxacin [Levaquin] 500 mg PO DAILY 10 Days #10 tablet 11/13/19 - Allergies Allergies/Adverse Reactions: Allergies Allergy/AdvReac Type Severity Reaction Status Date / Time adhesive AdvReac Rash Verified 07/31/20 20:05 amoxicillin trihydrate * AdvReac Hives Verified 07/31/20 20:05 [From Augmentin] potassium clavulanate * AdvReac Hives Verified 07/31/20 20:05 [From Augmentin] sulfamethoxazole AdvReac Hives Verified 07/31/20 20:05 [From Septra] trimethoprim [From Septra] AdvReac Hives Verified 07/31/20 20:05 nuts Allergy Unknown Uncoded 07/31/20 20:05 - Social History Does the pt smoke?: No Smoking Status: Never smoker PD ED PE NORMAL - Vitals Vital signs reviewed: Yes - General General: Other (On initial evaluation she has an extreme tachycardia, narrow complex and regular on the monitor. We were just starting to talk and getting her on the monitor when she syncopized and had agonal breathing and was pulseless and CPR was started) - Cardiac Cardiac: No murmur, Other (rapid/regular) - Respiratory Respiratory: No respiratory distress, Clear bilaterally - Abdomen Abdomen: Non tender - Back Back: No CVA TTP, No spinal TTP - Derm Derm: Normal color, Warm and dry - Extremities Extremities: No edema, No calf tenderness / cord - Neuro Neuro: Alert and oriented X 3, Normal speech Results - Vitals Vitals: Vital Signs - 24 hr 07/31/20 07/31/20 20:05 20:09 Temperature 36.6 C 36.6 C Heart Rate 158 H 158 H Respiratory 16 16 Rate Blood Pressure 150/100 H 150/100 H O2 Saturation 98 98 Oxygen O2 Source Room air - EKG (time done) 2003 Rate: Rate (enter#) (158) Rhythm: Other (Exquisitely regular tachycardia with mildly wide complexes, lateral ST depression.) 2016 Rate: Rate (enter#) (2017) Rhythm: Atrial fibrillation (This was first EKG postarrest. She is in a wide- complex atrial fibrillation) Ischemia: ST depression 2031 Rate: Rate (enter#) (70) Rhythm: Other (Second EKG postarrest, this is status post amiodarone load, 150 mg. Sinus rhythm with PAC read. LVH with repolarization abnormality and lateral ST depression. Long QT.) - Labs Labs: Laboratory Tests 07/31/20 07/31/20 07/31/20 20:22 20:22 20:22 WBC 10.1 RBC 5.17 Hgb 16.0 Hct 48.2 H MCV 93.2 MCH 30.9 MCHC 33.2 RDW 12.5 Plt Count 363 MPV 10.8 Neut # (Auto) 5.0 Lymph # (Auto) 4.2 H [place] # (Auto) 0.5 Eos # (Auto) 0.2 Baso # (Auto) 0.1 Absolute Nucleated RBC 0.00 Nucleated RBC % 0.0 PT 10.7 INR 1.0 VBG pH VBG pCO2 VBG pO2 VBG HCO3 VBG Total CO2 VBG O2 Saturation VBG Base Excess Sodium 137 Potassium 3.0 L Chloride 97 L Carbon Dioxide 24 Anion Gap 16.0 H BUN 25 H Creatinine 1.2 H Estimated GFR (MDRD) 44 L Glucose 138 H Lactic Acid Calcium 9.9 Phosphorus 3.7 Magnesium 2.4 Total Bilirubin 0.6 AST 102 H ALT 144 H Alkaline Phosphatase 75 Troponin I High Sens B-Natriuretic Peptide Total Protein 8.3 H Albumin 4.7 Globulin 3.6 Albumin/Globulin Ratio 1.3 TSH 07/31/20 07/31/20 07/31/20 20:22 20:22 20:22 WBC RBC Hgb Hct MCV MCH MCHC RDW Plt Count MPV Neut # (Auto) Lymph # (Auto) [place] # (Auto) Eos # (Auto) Baso # (Auto) Absolute Nucleated RBC Nucleated RBC % PT INR VBG pH VBG pCO2 VBG pO2 VBG HCO3 VBG Total CO2 VBG O2 Saturation VBG Base Excess Sodium Potassium Chloride Carbon Dioxide Anion Gap BUN Creatinine Estimated GFR (MDRD) Glucose Lactic Acid 7.1 H* Calcium Phosphorus Magnesium Total Bilirubin AST ALT Alkaline Phosphatase Troponin I High Sens 28.2 H* B-Natriuretic Peptide 518 H Total Protein Albumin Globulin Albumin/Globulin Ratio TSH 07/31/20 07/31/20 20:22 20:22 WBC RBC Hgb Hct MCV MCH MCHC RDW Plt Count MPV Neut # (Auto) Lymph # (Auto) [place] # (Auto) Eos # (Auto) Baso # (Auto) Absolute Nucleated RBC Nucleated RBC % PT INR VBG pH 7.177 L VBG pCO2 67.2 H VBG pO2 37.7 VBG HCO3 24.4 VBG Total CO2 26.4 VBG O2 Saturation 59.8 L VBG Base Excess -5.7 L Sodium Potassium Chloride Carbon Dioxide Anion Gap BUN Creatinine Estimated GFR (MDRD) Glucose Lactic Acid Calcium Phosphorus Magnesium Total Bilirubin AST ALT Alkaline Phosphatase Troponin I High Sens B-Natriuretic Peptide Total Protein Albumin Globulin Albumin/Globulin Ratio TSH 1.63 - Rads (name of study) 1v chest xr Radiology: EMP read contemporaneously (note this was post arrest, NAD) PD MEDICAL DECISION MAKING - ED course ED course: This 75-year-old woman resented to the emergency department tonight with a rapid regular tachycardia, she was stable in the waiting room although looks slightly ill. We were just maybe 90 seconds into the history when she syncopized and developed agonal breathing. I immediately performed a pulse check, and she was pulseless and CPR was immediately begun. The crash cart was hooked up, and she was in ventricular fibrillation. She was immediately defibrillated. The first shock did not convert her, and an IV was placed and she was given a milligram of epinephrine IV. And a second shock was successful in converting her to a narrow complex perfusing rhythm with a pulse. Her mental status immediately returned and seemed grossly normal. She was loaded with 150 mg of amiodarone IV for rapid atrial fibrillation with ischemic changes on the second EKG and given the V. fib arrest this is presumed to be an ischemic event. She was also given aspirin and heparin. Call was made to [facility] where she was accepted by the emergency physician there, Dr. Bojorquez. She remained relatively stable through the rest of her stay, talking and oriented. Supportive at the bedside and understanding of the situation and grateful for the quick resuscitation. - Critical Care Time(min): 45 Time Includes: Direct patient care, Review records, Reassess patient, Document care, Coordinate care, Medical consult, Family consult for [facility] Data interpretation: Labs, Pulse ox Procedures included in critical care time: Peripheral IV Procedures excluded from critical care time: EKG, CPR Departure - Departure Disposition: 02 Transfer Acute Care Hosp Clinical Impression: Cardiac arrest with ventricular fibrillation Condition: Critical
[2020-07-31] MEDS ORDERED: HEPARIN 5,000 UNIT/ML VIAL IVP STA (20:25)
[2020-07-31] MEDS ORDERED: ASPIRIN 325 MG TABLET PO STA (20:25)
[2020-07-31 20:31] LABS: BASOPHILS # (AUTO) 0.1 10^3/uL (0.0-0.1); BASOPHILS % (AUTO) 0.8 %; EOSINOPHILS # (AUTO) 0.2 10^3/uL (0.0-0.7); EOSINOPHILS % (AUTO) 1.8 %; LYMPHOCYTES # (AUTO) 4.2 10^3/uL (1.5-3.5); LYMPHOCYTES % (AUTO) 41.7 %; MEAN CORPUSCULAR HEMOGLOBIN 30.9 pg (27.0-31.0); MEAN CORPUSCULAR HGB CONC 33.2 g/dL (32.0-36.0); MEAN CORPUSCULAR VOLUME 93.2 fL (81.0-99.0); MEAN PLATELET VOLUME 10.8 fL (7.9-10.8); MONOCYTES # (AUTO) 0.5 10^3/uL (0.0-1.0); MONOCYTES % (AUTO) 4.9 %; NEUTROPHILS % (AUTO) 49.5 %; PLT - PLATELET COUNT 363 10^3/uL (130-450); RED BLOOD COUNT 5.17 10^6/uL (4.20-5.40); RED CELL DISTRIBUTION WIDTH 12.5 % (12.0-15.0); WHITE BLOOD COUNT 10.1 x10^3/uL (4.8-10.8)
[2020-07-31 20:38] LABS: PT - PROTHROMBIN TIME 10.7 secs (9.9-12.6)
--- NOTE | 2020-07-31 20:42 | XRAY Report ---
PROCEDURE: Chest 1 View X-Ray INDICATIONS: s/p arrest TECHNIQUE: One view of the chest was acquired. COMPARISON: 11/13/2019 FINDINGS: Surgical changes and devices: None. Defibrillator pads can be seen. Lungs and pleura: On the supine study, no large pneumothorax or large pleural effusions can be seen. No focal infiltrates are detected. Mediastinum: Mediastinal contours appear normal. Heart size is normal. Bones and chest wall: No suspicious bony lesions. Overlying soft tissues appear unremarkable. IMPRESSION: Supine portable chest within normal limits for age. Reviewed by: Blake Jacobo MD on 07/31/2020 7:41 PM [place] Approved by: Blake Jacobo MD on 07/31/2020 7:41 PM [facility] Station ID: [id number]
[2020-07-31 20:43] LABS: VBG PCO2 67.2 mmHg (41-51); VBG PH 7.177 (7.31-7.41); VBG PO2 37.7 mmHg (25-47)
[2020-07-31 20:45] LABS: VBG BASE EXCESS -5.7 mmol/L (-2 - +2); VBG TOTAL CO2 26.4 mmol/L (24-29)
[2020-07-31 20:46] LABS: ALBUMIN 4.7 g/dL (3.2-5.5); ALBUMIN/GLOBULIN RATIO 1.3 (1.0-2.2); BILIRUBIN,TOTAL 0.6 mg/dL (0.2-1.0); CALCIUM 9.9 mg/dL (8.5-10.3); CREATININE 1.2 mg/dL (0.4-1.0); MAGNESIUM 2.4 mg/dL (1.7-2.8); PHOSPHORUS 3.7 mg/dL (2.5-4.6); TOTAL PROTEIN 8.3 g/dL (6.7-8.2)
[2020-07-31 21:44] LABS: C. PNEUMONIAE- RESP PCR PANEL NOT DETECTED
== END 2020-07-31 21:00 | disposition short-term general hospital (02) ==
LOC: ED 20:00
DX: I49.01 Ventricular fibrillation (principal); I46.9 Cardiac arrest, cause unspecified; I48.91 Unspecified atrial fibrillation; I49.1 Atrial premature depolarization; I45.81 Long QT syndrome; I10 Essential (primary) hypertension; Z20.822 Contact with and (suspected) exposure to COVID-19; Z79.82 Long term (current) use of aspirin
CPT/HCPCS: 36415; 71045; 80053; 82803; 83605; 83735; 83880; 84100; 84443; 84484; 85025; 85610; 87631; 92950; 93005; 96374; 96375; 99291; A9270; J0282; 0202U

== ENCOUNTER 2020-08-10 11:33 | Outpatient (CLI) | payer MEDICARE ==
--- NOTE | 2020-08-10 12:10 | XRAY Report ---
PROCEDURE: Chest 2 View X-Ray INDICATIONS: RIB PAIN,RT SIDED,CARDIAC ARREST VENTRIC TECHNIQUE: 2 view(s) of the chest. COMPARISON: 07/31/2020. FINDINGS: Surgical changes and devices: Left chest wall pacemaker leads are seen in the region of right atrium and right ventricle.. Lungs and pleura: No pleural effusions or pneumothorax. Lungs are clear. Mediastinum: Mediastinal contours are normal. Heart size is normal. Bones and chest wall: No suspicious bony abnormalities. Soft tissues appear unremarkable. IMPRESSION: No acute cardiopulmonary pathology. No obvious displaced right rib fracture is identifie d. Reviewed by: Barber Gifford MD on 08/10/2020 12:09 PM PST Approved by: Barber Gifford MD on 08/10/2020 12:09 PM PST Station ID: [id number]
== END 2020-08-10 11:34 | disposition home or self-care (01) ==
LOC: DI 11:33
PROVIDERS: ATTEND Family Medicine
DX: R07.81 Pleurodynia (principal); Z95.0 Presence of cardiac pacemaker

== ENCOUNTER 2020-08-15 11:10 | Outpatient (CLI) | payer MEDICARE | END 2020-08-15 11:11 | disposition home or self-care (01) | LOC: RT 11:10 | PROVIDERS: ATTEND Family Medicine | DX: Z79.899 Other long term (current) drug therapy (principal) | CPT/HCPCS: 94010; 94729 ==

== ENCOUNTER 2020-12-21 11:30 | Outpatient (CLI) | payer MEDICARE | END 2020-12-21 23:59 | disposition home or self-care (01) | LOC: LAB.WCP 11:30 | PROVIDERS: ATTEND Family Medicine | DX: R35.0 Frequency of micturition (principal) | CPT/HCPCS: 87086; 87181 ==

== ENCOUNTER 2020-12-25 09:15 | Emergency (ER) | payer MEDICARE ==
[2020-12-25] MEDS ORDERED: SODIUM CHLORIDE 0.9% 1,000 ML IV STA (10:01)
[2020-12-25 10:23] LABS: BASOPHILS # (AUTO) 0.1 10^3/uL (0.0-0.1); BASOPHILS % (AUTO) 1.1 %; EOSINOPHILS # (AUTO) 0.2 10^3/uL (0.0-0.7); EOSINOPHILS % (AUTO) 2.4 %; HCT - HEMATOCRIT 45.4 % (37.0-47.0); HGB - HEMOGLOBIN 15.2 g/dL (12.0-16.0); LYMPHOCYTES # (AUTO) 1.4 10^3/uL (1.5-3.5); LYMPHOCYTES % (AUTO) 21.8 %; MEAN CORPUSCULAR HEMOGLOBIN 31.2 pg (27.0-31.0); MEAN CORPUSCULAR HGB CONC 33.5 g/dL (32.0-36.0); MEAN CORPUSCULAR VOLUME 93.2 fL (81.0-99.0); MONOCYTES # (AUTO) 0.4 10^3/uL (0.0-1.0); MONOCYTES % (AUTO) 6.6 %; NEUTROPHILS # (AUTO) 4.3 10^3/uL (1.5-6.6); NEUTROPHILS % (AUTO) 67.8 %; PLT - PLATELET COUNT 251 10^3/uL (130-450); RED BLOOD COUNT 4.87 10^6/uL (4.20-5.40); RED CELL DISTRIBUTION WIDTH 12.7 % (12.0-15.0); WHITE BLOOD COUNT 6.3 x10^3/uL (4.8-10.8)
[2020-12-25 10:36] LABS: ALBUMIN 4.9 g/dL (3.2-5.5); ALBUMIN/GLOBULIN RATIO 1.6 (1.0-2.2); BILIRUBIN,TOTAL 0.6 mg/dL (0.2-1.0); CALCIUM 9.7 mg/dL (8.5-10.3); CREATININE 1.2 mg/dL (0.4-1.0); POTASSIUM 3.9 mmol/L (3.5-5.0)
--- NOTE | 2020-12-25 11:05 | ED Physician Documentation ---
History of Present Illness - Stated complaint Stated Complaint: DIZZINESS - Chief complaint Chief Complaint: Neuro - History obtained from History obtained from: Patient - Additonal information Additional information: 75-year-old woman with history of A. fib With recent cardiac arrest from V. fib, pacemaker defibrillator placed in July 2020, client services director Dr. Azam sanders, presents with dizziness while reading a book on her tablet about an hour prior to arrival, intermittent also with mild frontal headache over the past couple days that is intermittent and mild. Patient states that she has had Mildly unsteady gait on and off for the past year and is planning on following up with neurologist. Primary Dr. Li.At present, she denies chest pain, shortness of breath, fever, neurological deficits, leg swelling, abdominal pain, nausea, ear fullness or hearing changes. Review of Systems Ten Systems: 10 systems reviewed and negative Constitutional: denies: Fever, Chills Eyes: denies: Loss of vision Ears: denies: Loss of hearing, Ear pain, Tinnitus/ringing Cardiac: denies: Chest pain / pressure, Palpitations Respiratory: denies: Dyspnea Neurologic: reports: Other (dizziness described as "objects moving from left to right". denies vertigo or lightheadedness) PD PAST MEDICAL HISTORY - Past Medical History Past Medical History: Yes Cardiovascular: Hypertension, High cholesterol, Murmur, Arrhythmia, Other Respiratory: None Neuro: None Endocrine/Autoimmune: None GI: None, Hemorrhoids LEGAL SUPPORT MANAGER: None : None HEENT: Chronic vision loss Psych: None Musculoskeletal: None Derm: Psoriasis - Past Surgical History Past Surgical History: Yes /LEGAL SUPPORT MANAGER: Hysterectomy Cardiovascular: Pacemaker, AICD HEENT: Cataracts, Other - Present Medications Home Medications: Ambulatory Orders Medication Instructions Recorded Confirmed Ca/D3/Mag/Zinc/Michelle/Srinivas/Mgbor 2 each PO DAILY 05/25/14 12/25/20 [Caltrate 600+D3+Min Chew Tab] Cholecalciferol (Vitamin D3) 1,000 unit PO DAILY 05/25/14 12/25/20 [D-2000] Losartan Potassium 100 mg PO DAILY 08/23/16 12/25/20 Amiodarone HCl 100 mg PO DAILY 12/25/20 12/25/20 Amlodipine Besylate [Norvasc] 2.5 mg PO BID 12/25/20 12/25/20 Apixaban [Eliquis] 5 mg ORAL BID 12/25/20 12/25/20 Atorvastatin [Lipitor] 10 mg ORAL DAILY PM 12/25/20 12/25/20 - Allergies Allergies/Adverse Reactions: Allergies Allergy/AdvReac Type Severity Reaction Status Date / Time adhesive AdvReac Rash Verified 12/25/20 09:26 amoxicillin trihydrate * AdvReac Hives Verified 12/25/20 09:26 [From Augmentin] lisinopril AdvReac Unknown Verified 12/25/20 09:26 potassium clavulanate * AdvReac Hives Verified 12/25/20 09:26 [From Augmentin] sulfamethoxazole AdvReac Hives Verified 12/25/20 09:26 [From Septra] trimethoprim [From Septra] AdvReac Hives Verified 12/25/20 09:26 nuts Allergy Unknown Uncoded 07/31/20 20:05 - Social History Does the pt smoke?: No Smoking Status: Never smoker Does the pt drink ETOH?: No Does the pt have substance abuse?: No - Immunizations Immunizations are current?: Yes - POLST Patient has POLST: No PD ED PE NORMAL - Vitals Vital signs reviewed: Yes - General General: Alert and oriented X 3, No acute distress, Well developed/nourished - HEENT HEENT: Atraumatic, PERRL, EOMI - Neck Neck: Supple, no meningeal sign - Cardiac Cardiac: RRR - Respiratory Respiratory: No respiratory distress, Clear bilaterally - Abdomen Abdomen: Non tender, Non distended - Derm Derm: Normal color, Warm and dry - Extremities Extremities: No deformity - Neuro Neuro: Alert and oriented X 3, preparation room manager 2-12 intact, No motor deficit, No sensory deficit, Normal speech, Other (ambulatory without difficulty. negative cerebellar testing, strength) - Psych Psych: Normal mood, Normal affect Results - Vitals Vitals: Vital Signs - 24 hr 12/25/20 12/25/20 12/25/20 09:22 09:47 10:00 Temperature 36.4 C L Heart Rate 60 72 Heart Rate [ 60 Sitting] Heart Rate [ 63 Standing] Heart Rate [ 62 Supine] Respiratory 16 12 Rate Blood Pressure 167/81 H 179/79 H Blood Pressure 190/73 H [Sitting] Blood Pressure 165/74 H [Standing] Blood Pressure 165/57 H [Supine] O2 Saturation 98 100 07/17/21 07/17/21 07/17/21 11:33 12:33 14:33 Temperature Heart Rate 60 60 60 Heart Rate [ Sitting] Heart Rate [ Standing] Heart Rate [ Supine] Respiratory 18 16 15 Rate Blood Pressure 179/65 H 164/58 H 106/66 Blood Pressure [Sitting] Blood Pressure [Standing] Blood Pressure [Supine] O2 Saturation 100 100 100 Oxygen O2 Source Room air - EKG (time done) 0936 Rate: Rate (enter#) (62) Rhythm: Other (atrial paced rhythm) QRS: LVH - Labs Labs: Laboratory Tests 12/25/20 12/25/20 12/25/20 09:38 10:00 10:00 WBC 6.3 RBC 4.87 Hgb 15.2 Hct 45.4 MCV 93.2 MCH 31.2 H MCHC 33.5 RDW 12.7 Plt Count 251 MPV 11.0 H Neut # (Auto) 4.3 Lymph # (Auto) 1.4 L [place] # (Auto) 0.4 Eos # (Auto) 0.2 Baso # (Auto) 0.1 Absolute Nucleated RBC 0.00 Nucleated RBC % 0.0 Sodium 137 Potassium 3.9 Chloride 103 Carbon Dioxide 25 Anion Gap 9.0 BUN 30 H Creatinine 1.2 H Estimated GFR (MDRD) 44 L Glucose 179 H POC Whole Bld Glucose 160 H Calcium 9.7 Total Bilirubin 0.6 AST 23 ALT 17 Alkaline Phosphatase 60 Total Protein 8.0 Albumin 4.9 Globulin 3.1 Albumin/Globulin Ratio 1.6 Lipase 42 PD MEDICAL DECISION MAKING - ED course ED course: d/w Back andDr. Azam Mancia, the patient's client services director who states that she was admitted. For A. fib that degenerated into V. fib, pacemaker defibrillator was placed with improvement. After discussing her symptoms he does not believe that this is cardiac related. We will do an interrogation of her pacemaker to investigate. Pacemaker interrogation with no events per st judes. will dc with return precautions , outpatient f/u with Dr. Li for referral to neuro. Departure - Departure Clinical Impression: Dizziness Condition: Good Instructions: ED Dizziness [facility] Comments: You were seen in the emergency department for dizziness without any known source. CT scan of your head and neck did not show any abnormalities that could cause this, nor did your blood work or EKG. I spoke with your client services director who does not believe that this is heart related. Your pacemaker interrogation uncovered no events. Please follow-up with Dr. Li for referral to neurology. Return to the emergency department if you develop any new or worsening symptoms or have other concerns.
[2020-12-25] MEDS ORDERED: IOVERSOL 320 100 ML VIAL IVP ONE ×2 (11:19→12:12)
--- NOTE | 2020-12-25 12:33 | CT Report ---
PROCEDURE: ANGIO HEAD W/WO INDICATIONS: dizziness, headache CONTRAST: IV CONTRAST: Optiray 320 ml: 80 PO CONTRAST: *NO PO CONTRAST TECHNIQUE: Precontrast 4.5 mm thick angled axial sections acquired from the foramen magnum to the vertex. Afte r the administration of intravenous contrast, 1 mm thick sections acquired through the [place] of [place] is. Postcontrast 4.5 mm thick sections then re-acquired from the foramen magnum to the vertex. For radiation dose reduction, the following was used: automated exposure control, adjustment of mA and/o r kV according to patient size. COMPARISON: MR angiogram 05/05/2019 FINDINGS: Image quality: Excellent. Anterior circulation: Intracranial internal carotid arteries are normal in size and flow. The flow within the paired anterior cerebral arteries is normal and symmetric. The flow within the middle cer ebral arteries is normal and symmetric. The anterior communicating artery is seen. No aneurysms are seen. Posterior circulation: Visualized portions of the vertebral arteries demonstrate normal caliber, and join to form a normal appearing basilar artery. Flow within the posterior cerebral arteries is norm al and symmetric. No aneurysms are seen. 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 Distal vasculature supplied by widely patent to the bilateral posterior taking arteries. No evidence of aneurysm. CSF spaces: Ventricles are normal in size and shape. Basal cisterns are patent. No extra-axial flu id collections. Brain: No midline shift. No intracranial bleeds or masses. [place]-white matter interface appears int act. Skull and face: Calvarium and facial bones appear intact, without suspicious lesions. Incidental tonya ateral intraocular lens replacements noted. Sinuses: Visualized sinuses and mastoids are clear. IMPRESSION: 1. Unremarkable CT brain. No intracranial hemorrhage or mass effect 2. Unremarkable CT angiogram of the brain without evidence of large vessel occlusion, aneurysm or vas cular malformation. 3. 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
--- NOTE | 2020-12-25 12:35 | CT Report ---
PROCEDURE: ANGIO NECK W INDICATIONS: dizziness, headache CONTRAST: IV CONTRAST: Optiray 320 ml: 80 PO CONTRAST: *NO PO CONTRAST TECHNIQUE: After the administration of intravenous contrast, 1.5 mm axial sections acquired from the aortic arch to the [place] of [place]. Coronal 3-D maximum intensity projection (MIP) and/or volume rendering ref ormats were then performed. For radiation dose reduction, the following was used: automated exposur e control, adjustment of mA and/or kV according to patient size. COMPARISON: None. FINDINGS: Image quality: Excellent. Carotid system: The great vessels demonstrate a conventional anatomy as they arise from the aortic a [facility]. The origins of the common carotid arteries appear patent. The common carotid arteries demonstr ate normal calibers and courses. The bifurcation regions appear normal bilaterally. The internal ca rotid arteries demonstrate normal caliber and course. Posterior circulation: The origins of the vertebral arteries appear patent. The more superior porti ons of the vertebral arteries demonstrate normal course and caliber. They join to form a normal appe aring basilar artery. Right vertebral artery dominance. Soft tissues: Visualized neck soft tissues demonstrate no suspicious abnormalities. The thyroid is normal in size and there are no incidental findings. Bones: No suspicious bony lesions. Visualized cervical spine appears normally aligned. IMPRESSION: Unremarkable CT angiogram of the neck. No evidence of vascular occlusion or stenosis. The estimate of stenosis included in the report of the imaging study was calculated using the NASCET method Reviewed by: Hilton Wong MD on 12/25/2020 11:34 AM [facility] Approved by: Hilton Wong MD on 12/25/2020 11:34 AM [facility] Station ID: [id number]
[2020-12-25 15:38] VITALS: BP 127/70
== END 2020-12-25 15:51 | disposition home or self-care (01) ==
LOC: ED 09:15
DX: R42 Dizziness and giddiness (principal); R51.9 Headache, unspecified; R26.81 Unsteadiness on feet; I10 Essential (primary) hypertension; Z95.810 Presence of automatic (implantable) cardiac defibrillator; Z86.79 Personal history of other diseases of the circulatory system; Z79.01 Long term (current) use of anticoagulants
CPT/HCPCS: 36415; 70496; 70498; 80053; 83690; 85025; 93005; 96360; 96361; 99284; Q9967

== ENCOUNTER 2021-04-01 08:00 | Outpatient (CLI) | payer MEDICARE | END 2021-04-01 23:59 | disposition home or self-care (01) | LOC: LAB.N 08:00 | PROVIDERS: ATTEND Family Medicine | DX: R53.83 Other fatigue (principal); Z20.822 Contact with and (suspected) exposure to COVID-19 ==

== ENCOUNTER 2021-08-02 10:19 | Outpatient (CLI) | payer MEDICARE ==
--- NOTE | 2021-08-03 07:04 | Mammography Report ---
BILATERAL DIGITAL SCREENING MAMMOGRAM 3D/2D: 08/02/2021 CLINICAL: Routine screening. Comparison is made to exams dated: 07/15/2020 mammogram, 05/26/2019 mammogram, 05/06/2018 mammogram, 1 08/06/2016 mammogram, 04/27/2016 mammogram, and 05/07/2015 mammogram - [facility]. The tissue of both breasts is heterogeneously dense. This may lower the sensitivity of mammography. No significant masses, calcifications, or other findings are seen in either breast. There has been no significant interval change. IMPRESSION: NEGATIVE There is no mammographic evidence of malignancy. A 1 year screening mammogram is recommended. This exam was interpreted at Station ID: [id number]. NOTE: For mammograms, a report in lay terms will be sent to the patient. Approximately 15% of breast malignancies will not be visualized mammographically. In the management of a palpable breast mass, a negative mammogram must not discourage biopsy of a clinically suspicious lesion. Electronically Signed By: Misael Avery acr/penrad:08/02/2021 11:56:45 ACR BI-RADS Category 1: Negative 3341F PARENCHYMAL PATTERN: (D) - The breast(s) demonstrate(s) heterogeneously dense fibroglandular parmyla ma. BI-RADS CATEGORY: (1) - 1 RECOMMENDATION: (ANNUAL) - Recommend routine annual screening mammography. [id number] 1 year screening LATERALITY: (B)
== END 2021-08-02 10:20 | disposition home or self-care (01) ==
LOC: DI.N 10:19
DX: Z12.31 Encounter for screening mammogram for malignant neoplasm of breast (principal)

== ENCOUNTER 2021-09-17 11:09 | Outpatient (CLI) | payer MEDICARE ==
--- NOTE | 2021-09-17 12:08 | XRAY Report ---
PROCEDURE: Ribs w/PA Chest LT INDICATIONS: RIB PAIN, LEFT TECHNIQUE: 2 views of the left ribs were acquired, along with a single view chest. COMPARISON: Prior chest radiograph, 08/10/2021. FINDINGS: Surgical changes and devices: An AICD can be seen. The leads are seen in the expected positions. Bones and chest wall: A marker is placed upon the area of pain. At this site, no fractures are seen. No fractures or dislocations are seen elsewhere. No suspicious bony lesions. Age-appropriate degen erative changes are seen. The overlying soft tissues appear unremarkable. Lungs and pleura: No pleural effusions or pneumothorax. Lungs appear clear. Mediastinum: Mediastinal contours appear normal. Heart size is normal. IMPRESSION: No displaced rib fracture. No pneumothorax. Incidental note is made of: AICD Reviewed by: Blake Jacobo MD on 09/17/2021 11:06 AM [facility] Approved by: Blake Jacobo MD on 09/17/2021 11:06 AM [facility] Station ID: [id number]
== END 2021-09-17 23:59 | disposition home or self-care (01) ==
LOC: DI.N 11:09
PROVIDERS: ATTEND Family Medicine
DX: R07.81 Pleurodynia (principal)

== ENCOUNTER 2022-01-07 11:34 | Emergency (ER) | payer MEDICARE ==
--- NOTE | 2022-01-07 11:40 | ED Physician Documentation ---
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 Her glasses margin apparently struck into her cheek with a laceration in that area. Abrasion bridge of the nose and some tenderness right upper lip.) Associated symptoms: Paresthesias (not initially but is having some numbness right upper lip develop with swelling enroute here.). No: LOC, AMS, Amnesia, Weakness Contributing factors: Anticoagulated. No: Intoxicated Similar symptoms before: Has not had sx before Recently seen: Not recently seen Review of Systems Constitutional: denies: Fever, Chills Eyes: denies: Loss of vision, Decreased vision Nose: denies: Rhinorrhea / runny nose, Congestion Throat: denies: Sore throat Cardiac: denies: Chest pain / pressure Respiratory: denies: Cough GI: denies: Abdominal Pain Skin: reports: Laceration (s) (right lower eyelid medial aspect with curved lac 2.6 cm, without FB but does have still some bleeding. Right upper lip with mild swelling and less sensation in that area. 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 HEENT: Chronic vision loss Psych: None Musculoskeletal: None Derm: Psoriasis - Past Surgical History Past Surgical History: Yes /CORDUROY BRUSHER OPERATOR: Hysterectomy Cardiovascular: Pacemaker, AICD HEENT: Cataracts, Other - Present Medications Home Medications: Ambulatory Orders Medication Instructions Recorded Confirmed Ca/D3/Mag/Zinc/Michelle/Srinivas/Mgbor 2 each PO DAILY 05/25/14 12/25/20 [Caltrate 600+D3+Min Chew Tab] Cholecalciferol (Vitamin D3) 1,000 unit PO DAILY 05/25/14 12/25/20 [D-2000] Losartan Potassium 100 mg PO DAILY 08/23/16 12/25/20 Amiodarone HCl 100 mg PO DAILY 12/25/20 12/25/20 Amlodipine Besylate [Norvasc] 2.5 mg PO BID 12/25/20 12/25/20 Apixaban [Eliquis] 5 mg ORAL BID 12/25/20 12/25/20 Atorvastatin [Lipitor] 10 mg ORAL DAILY PM 12/25/20 12/25/20 - Allergies Allergies/Adverse Reactions: Allergies Allergy/AdvReac Type Severity Reaction Status Date / Time adhesive AdvReac Rash Verified 01/07/22 11:41 amoxicillin trihydrate * AdvReac Hives Verified 01/07/22 11:41 [From Augmentin] lisinopril AdvReac Unknown Verified 01/07/22 11:41 potassium clavulanate * AdvReac Hives Verified 01/07/22 11:41 [From Augmentin] sulfamethoxazole AdvReac Hives Verified 01/07/22 11:41 [From Septra] trimethoprim [From Septra] AdvReac Hives Verified 01/07/22 11:41 nuts Allergy Unknown Uncoded 01/07/22 11:41 - Social History Does the pt smoke?: No Smoking Status: Never smoker Does the pt drink ETOH?: No Does the pt have substance abuse?: No - Immunizations Immunizations are current?: Yes - POLST Patient has POLST: No PD ED PE NORMAL - Vitals Vital signs reviewed: Yes - General General: Alert and oriented X 3, No acute distress, Well developed/nourished - HEENT HEENT: PERRL (no diplopia. ), EOMI, Dentition benign, Other (right medial lower lid/cheek with 2.6 cm crescentic lac with mild bleeding, no FB, goes to fat tissue layer. ) - Neck Neck: Supple, no meningeal sign, No bony TTP, No adenopathy - Derm Derm: Normal color, Warm and dry - Extremities Extremities: Normal ROM s pain - Neuro Neuro: Alert and oriented X 3, No motor deficit, Normal speech, Other (normal sensation right side of nose and medial cheek. Decreased right upper lip area with local swelling c/w local injury effect. Teeth without injury. ) Eye Opening: Spontaneous Motor: Obeys Commands Verbal: Oriented GCS Score: 15 Results - Vitals Vitals: Oxygen O2 Source Room air - Rads (name of study) head/facial CT Radiology: Prelim report reviewed (no ICH nor facial fractures. ), See rad report Procedures - Laceration (location) right maxillary area Length in cm: 2.6 Wound type: Linear, Into subcut fat, Clean Neurovascular status: Sensory intact (decreased sensation right upper lip only, not in cheek nor side of nose.), Motor intact Anesthesia: Lidocaine 1% with epi Wound preparation: Irrigated copiously NS, Wound explored, To the base Skin layer closure: Nylon, Running, Size #-0 - enter number (5), Sutures - enter # (8) Other: Patient tolerated well, No complications, Tetanus UTD PD MEDICAL DECISION MAKING - ED course Complexity details: considered differential (modified trauma due to facial injury and on DOAC. normal neuro exam generally. Low suspicion for ICH. consider periorbital fractures. ), d/w patient Departure - Departure Disposition: 01 Home, Self Care Clinical Impression: Anticoagulant long-term use Fall from slip, trip, or stumble Qualifiers: Encounter type: initial encounter Qualified Code(s): W01.0XXA - Fall on same level from slipping, tripping and stumbling without subsequent striking against object, initial encounter Facial laceration Qualifiers: Encounter type: initial encounter Qualified Code(s): S01.81XA - Laceration without foreign body of other part of head, initial encounter Condition: Stable Record reviewed to determine appropriate education?: Yes Instructions: ED Laceration Facial Sutr Tape Follow-Up: Ijeoma Johnson PA [Primary Care Provider] - Comments: Tylenol every 4-6 hours if needed for pain. Your head and facial CT scans did not show any signs of bleeding or fractures. The numbness on the upper lip I believe is from local contusion and swelling and not from injury to the nerve per se as the rest of the face does not have numbness. My suture care it is okay to wash and shower. Clean off the wound twice a day with soap and water, or peroxide and water. Apply some antibiotic ointment to it to keep it moist. Also to watch for signs of infection such as purulence, redness or increasing pain. Return to your primary care or the ER at the specified time for suture removal. Suture removal 5 to 7 days. Discharge Date/Time: 01/07/22 13:14
--- NOTE | 2022-01-07 12:38 | CT Report ---
PROCEDURE: MAXILLOFACIAL WO INDICATIONS: fall, struck face; on DOAC TECHNIQUE: Noncontrast 1.5 mm thick axial images acquired from the mandible through the frontal sinuses, with co fatemeh and sagittal reformatting. For radiation dose reduction, the following was used: automated ex posure control, adjustment of mA and/or kV according to patient size. COMPARISON: Correlation is made with the accompanying head CT, 01/07/[address], . FINDINGS: Image quality: Excellent. Bones and teeth: Orbital horton are intact. Sinus horton show no fracture or deformity. Nasal bones and septum are intact. Visualized portions of the mandible demonstrate no fractures or subluxation. Zygomatic arches are intact. Pterygoid plates are intact. Visualized portions of the skull base an d auditory canals are intact. Sinuses: Mild mucosal thickening is seen within the inferior maxillary sinuses, left worse than right . There is mild leftward nasal septal deviation. The ostiomeatal complexes are constitutionally narro wed, with bilateral Irma cells. Mastoid air cells are aerated. Soft tissues: Right cheek laceration can be seen, with associated soft tissue gas. Vascular: Visualized vascular structures appear normal in the absence of contrast. Bony vascular fo ramina and canals are intact. IMPRESSION: No displaced fracture can be seen. Right cheek soft tissue laceration, with associated soft tissue gas. Mild paranasal sinus disease is seen. Incidental note is made of: Constitutionally narrowed ostiomeatal complexes Mild leftward nasal septal deviation Reviewed by: Blake Jacobo MD on 01/07/2022 11:37 AM LUIS F Approved by: Blake Jacobo MD on 01/07/2022 11:37 AM NCMIKE Station ID: [id number]
--- NOTE | 2022-01-07 12:39 | CT Report ---
PROCEDURE: HEAD WO INDICATIONS: fall, struck face; on DOAC TECHNIQUE: Noncontrast 4.5 mm thick angled axial sections acquired from the foramen magnum to the vertex. For r adiation dose reduction, the following was used: automated exposure control, adjustment of mA and/or kV according to patient size. COMPARISON: 12/25/2020. Correlation is also made with the company maxillofacial CT 01/07/2022. FINDINGS: Image quality: There is streak artifact seen through the skull base. CSF spaces: Basal cisterns are patent. No extra-axial fluid collections. Ventricles are normal in size and shape. Brain: No midline shift. No intracranial masses or hemorrhage. Pickering-white matter interface is norm al. Skull and face: Calvarium and visualized facial bones are intact, without suspicious lesions. Sinuses: Visualized sinuses and mastoids are clear. IMPRESSION: No intracranial hemorrhage is seen. No significant intracranial abnormality is seen. Reviewed by: Blake Jacobo MD on 01/07/2022 11:38 AM LUIS F Approved by: Blake Jacobo MD on 01/07/2022 11:38 AM LUIS F Station ID: [id number]
[2022-01-07] MEDS ORDERED: BACITRACIN ZINC OINT 1 PACKET TOP STA (12:44)
[2022-01-07] MEDS ORDERED: ACETAMINOPHEN 325 MG TABLET PO STA (12:44)
[2022-01-07 13:02] VITALS: BP 136/66
== END 2022-01-07 13:14 | disposition home or self-care (01) ==
LOC: ED 11:34
DX: S01.411A Laceration without foreign body of right cheek and temporomandibular area, initial encounter (principal); S01.511A Laceration without foreign body of lip, initial encounter; W01.198A Fall on same level from slipping, tripping and stumbling with subsequent striking against other object, initial encounter; I10 Essential (primary) hypertension; Z79.01 Long term (current) use of anticoagulants
CPT/HCPCS: 70450; 70486; 99282; 99284; A9270

== ENCOUNTER 2022-03-21 10:07 | Outpatient (CLI) | payer MEDICARE ==
--- NOTE | 2022-03-21 16:12 | XRAY Report ---
PROCEDURE: Hips 2V BILAT INDICATIONS: HIP PAIN,LEFT TECHNIQUE: 2 views of the hip were acquired. COMPARISON: None FINDINGS: Bones: No fractures or dislocations. No suspicious bony lesions. The visualized pelvic ring appear s intact. Moderate bilateral degenerative hip joint space narrowing. No erosions or particular osteo phytes. Mild degenerative changes are noted within the lower lumbar spine. Soft tissues: No suspicious soft tissue calcifications or masses. IMPRESSION: Moderate arthritic changes bilaterally. Reviewed by: rAelis Ruvalcaba MD on 03/21/2022 4:11 PM PDT Approved by: Arelis Ruvalcaba MD on 03/21/2022 4:11 PM PDT Station ID: [id number]
== END 2022-03-21 10:08 | disposition home or self-care (01) ==
LOC: DI 10:07
PROVIDERS: ATTEND Physician Assistant
DX: M16.0 Bilateral primary osteoarthritis of hip (principal)

== ENCOUNTER 2022-07-20 20:33 | Outpatient (CLI) | payer MEDICARE | END 2022-07-20 20:34 | disposition critical access hospital (66) | LOC: EMS 20:33 | DX: R51.9 Headache, unspecified (principal); M54.2 Cervicalgia; R53.83 Other fatigue; W10.9XXA Fall (on) (from) unspecified stairs and steps, initial encounter; Y93.01 Activity, walking, marching and hiking; Y92.009 Unspecified place in unspecified non-institutional (private) residence as the place of occurrence of the external cause; Z79.01 Long term (current) use of anticoagulants | CPT/HCPCS: A0425; A0429 ==

== ENCOUNTER 2022-07-20 20:41 | Emergency (ER) | payer MEDICARE ==
--- NOTE | 2022-07-20 20:52 | ED Physician Documentation ---
History of Present Illness - Stated complaint Stated Complaint: FELL DOWN STAIRS, HIT HEAD - History obtained from History obtained from: Patient, EMS - History of Present Illness Timing: Today - Additonal information Additional information: Patient is a 77-year-old female who is on Eliquis at home. She was walking up the stairs today when she slipped fell and struck her head and neck on the stairs. No loss of consciousness. No vomiting. No numbness or tingling. She is complaining of mild neck pain. No hip pain. No loss of bowel or bladder control. Placed in a cervical collar by EMS. 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 HEENT: Chronic vision loss Psych: None Musculoskeletal: None Derm: Psoriasis - Past Surgical History Past Surgical History: 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 Cardiovascular: Pacemaker, AICD HEENT: Cataracts, Other - Present Medications Home Medications: Ambulatory Orders Medication Instructions Recorded Confirmed Ca/D3/Mag/Zinc/Michelle/Srinivas/Mgbor 2 each PO DAILY 05/25/14 07/20/22 [Caltrate 600+D3+Min Chew Tab] Cholecalciferol (Vitamin D3) 1,000 unit PO DAILY 05/25/14 07/20/22 [D-2000] Losartan Potassium 100 mg PO DAILY 08/23/16 07/20/22 Amiodarone HCl 100 mg PO DAILY 12/25/20 07/20/22 Amlodipine Besylate [Norvasc] 2.5 mg PO BID 12/25/20 07/20/22 Apixaban [Eliquis] 5 mg ORAL BID 12/25/20 07/20/22 Atorvastatin [Lipitor] 10 mg ORAL DAILY PM 12/25/20 07/20/22 Estradiol [Vagifem] 07/20/22 Lisinopril [Zestril] 07/20/22 - Allergies Allergies/Adverse Reactions: Allergies Allergy/AdvReac Type Severity Reaction Status Date / Time adhesive AdvReac Rash Verified 07/20/22 20:48 amoxicillin trihydrate * AdvReac Hives Verified 07/20/22 20:48 [From Augmentin] lisinopril AdvReac Unknown Verified 07/20/22 20:48 potassium clavulanate * AdvReac Hives Verified 07/20/22 20:48 [From Augmentin] sulfamethoxazole AdvReac Hives Verified 07/20/22 20:48 [From Septra] trimethoprim [From Septra] AdvReac Hives Verified 07/20/22 20:48 nuts Allergy Unknown Uncoded 07/20/22 20:48 - Social History Does the pt smoke?: No Smoking Status: Never smoker Does the pt drink ETOH?: No Does the pt have substance abuse?: No - Immunizations Immunizations are current?: Yes - POLST Patient has POLST: No PD ED PE NORMAL - Vitals Vital signs reviewed: Yes - General General: Alert and oriented X 3, No acute distress, Well developed/nourished - HEENT HEENT: PERRL, Moist mucous membranes - Neck Neck: Supple, no meningeal sign, Other (Mild tender to palpation upper C-spine, midline. No step-off or deformity. 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, No motor deficit, No sensory deficit, Normal speech Eye Opening: Spontaneous Motor: Obeys Commands Verbal: Oriented GCS Score: 15 - Psych Psych: Normal mood, Normal affect Results - Vitals Vitals: Vital Signs - 24 hr 07/20/22 20:50 Temperature 36.8 C Heart Rate 71 Respiratory 14 Rate Blood Pressure 171/67 H O2 Saturation 100 Oxygen O2 Source Room air - Labs Labs: Laboratory Tests 07/20/22 07/20/22 20:49 20:49 WBC 7.8 RBC 4.80 Hgb 14.7 Hct 44.8 MCV 93.3 MCH 30.6 MCHC 32.8 RDW 12.6 Plt Count 317 MPV 10.5 Neut # (Auto) 4.6 Lymph # (Auto) 2.2 [place]bon # (Auto) 0.7 Eos # (Auto) 0.2 Baso # (Auto) 0.1 Absolute Nucleated RBC 0.00 Nucleated RBC % 0.0 Sodium 128 L Potassium 4.4 Chloride 92 L Carbon Dioxide 23 Anion Gap 13.0 BUN 21 H Creatinine 1.1 H Estimated GFR (MDRD) 48 L Glucose 110 H Calcium 9.9 - Rads (name of study) head CT Radiology: Final report received, See rad report c spine CT Radiology: Final report received, See rad report PD Medical Decision Making - ED course Complexity details: reviewed results, re-evaluated patient, considered differential, d/w patient ED course: 77-year-old female with an unstable C2 fracture. Images were pushed to [facility]. Discussed the case with Marcia, transfer RN at 2141. Then discussed the case with Dr. Paul, neuro spine at [facility] at approximately 2210. He graciously accepts the patient in transfer to the emergency department. Patient is an active 77-year-old female. GCS 15. Neurologically intact. Maintained in a cervical collar. We will send her via [employer]. COBRA forms completed. This document was made in part using voice recognition software. While efforts are made to proofread this document, sound alike and grammatical errors may occur. Departure - Departure Disposition: 02 Transfer Acute Care Hosp Clinical Impression: Closed C2 fracture Qualifiers: Encounter type: initial encounter Fracture morphology: unspecified fracture morphology Fracture alignment: nondisplaced Qualified Code(s): S12.101A - Unspecified nondisplaced fracture of second cervical vertebra, initial encounter for closed fracture Condition: Stable
--- NOTE | 2022-07-20 21:26 | CT Report ---
PROCEDURE: HEAD WO INDICATIONS: fall, head injury TECHNIQUE: Noncontrast 4.5 mm thick angled axial sections acquired from the foramen magnum to the vertex. For r adiation dose reduction, the following was used: automated exposure control, adjustment of mA and/or kV according to patient size. COMPARISON: CT head 01/07/2022. FINDINGS: Image quality: There is mild motion artifact limiting evaluation. There is also metallic streak artif act from patient's dental hardware. CSF spaces: There is cerebral volume loss with prominence of the ventricles and sulci. Basal cistern s are patent. No extra-axial fluid collections. Brain: No intracranial hemorrhage, mass, or mass effect. Pickering-white matter interface is preserved. T here are subcortical and periventricular white matter hypodensities consistent with chronic small ves erick ischemic changes. Skull and face: Calvarium and visualized facial bones are intact, without suspicious lesions. Sinuses: Visualized sinuses and mastoids are clear. IMPRESSION: 1. No acute intracranial abnormality. Reviewed by: Estrada Bowman MD on 07/20/2022 9:25 PM PST Approved by: Estrada Bowman MD on 07/20/2022 9:25 PM PST Station ID: [id number]
[2022-07-20 21:28] LABS: BASOPHILS # (AUTO) 0.1 10^3/uL (0.0-0.1); BASOPHILS % (AUTO) 0.8 %; EOSINOPHILS # (AUTO) 0.2 10^3/uL (0.0-0.7); HCT - HEMATOCRIT 44.8 % (37.0-47.0); HGB - HEMOGLOBIN 14.7 g/dL (12.0-16.0); LYMPHOCYTES # (AUTO) 2.2 10^3/uL (1.5-3.5); LYMPHOCYTES % (AUTO) 27.9 %; MEAN CORPUSCULAR HEMOGLOBIN 30.6 pg (27.0-31.0); MEAN CORPUSCULAR HGB CONC 32.8 g/dL (32.0-36.0); MEAN CORPUSCULAR VOLUME 93.3 fL (81.0-99.0); MEAN PLATELET VOLUME 10.5 fL (7.9-10.8); MONOCYTES # (AUTO) 0.7 10^3/uL (0.0-1.0); MONOCYTES % (AUTO) 8.9 %; NEUTROPHILS # (AUTO) 4.6 10^3/uL (1.5-6.6); NEUTROPHILS % (AUTO) 58.9 %; PLT - PLATELET COUNT 317 10^3/uL (130-450); RED CELL DISTRIBUTION WIDTH 12.6 % (12.0-15.0); WHITE BLOOD COUNT 7.8 x10^3/uL (4.8-10.8)
[2022-07-20 21:38] LABS: CALCIUM 9.9 mg/dL (8.5-10.3); CREATININE 1.1 mg/dL (0.4-1.0); POTASSIUM 4.4 mmol/L (3.5-5.0)
--- NOTE | 2022-07-20 21:48 | CT Report ---
PROCEDURE: CERVICAL SPINE WO INDICATIONS: fall, neck pain TECHNIQUE: Noncontrast 3 mm thick sections acquired from the skull base to the T4 level. Sagittal and coronal r eformats were then constructed. For radiation dose reduction, the following was used: automated exp osure control, adjustment of mA and/or kV according to patient size. COMPARISON: None. FINDINGS: Image quality: Excellent. Bones: There is a comminuted fracture within the anterior ring of C2. This extends through the base o f the dens. Fracture also extends to the right transverse foramen of C2. Visualized superior ribs are intact. No other definite fracture or subluxation. There is mild straightening of the cervical lordosis. Mult ilevel degenerative disc disease and facet arthropathy are present. Soft tissues: Prevertebral soft tissues are normal in thickness. No paravertebral hematomas. No ap ical pneumothoraces. IMPRESSION: 1. Comminuted fracture through the anterior ring of C2 involving the base of the dens. Findings discussed with Dr. Sullivan on 07/20/2022 at 9:31 PM. Reviewed by: Estrada Bowman MD on 07/20/2022 9:46 PM PST Approved by: Estrada Bowman MD on 07/20/2022 9:46 PM PST Station ID: [id number]
[2022-07-20 23:07] VITALS: BP 174/77
[2022-07-20 23:15] LABS: B. PARAPERTUSSIS- RESP PCR PAN NOT DETECTED; B. PERTUSSIS- RESP PCR PANEL NOT DETECTED; C. PNEUMONIAE- RESP PCR PANEL NOT DETECTED; CORONAVIRUS 229E-RESP PCR NOT DETECTED; CORONAVIRUS HKU1-RESP PCR NOT DETECTED; CORONAVIRUS NL63-RESP PCR NOT DETECTED; CORONAVIRUS OC43-RESP PCR NOT DETECTED; HUMAN METAPNEUMOVIRUS NOT DETECTED; INFLUENZA A- RESP PCR PANEL NOT DETECTED; INFLUENZA B - RESP PCR PANEL NOT DETECTED; M. PNEUMONIAE- RESP PCR PANEL NOT DETECTED; PARAINFLUENZA VIRUS 1 NOT DETECTED; PARAINFLUENZA VIRUS 2 NOT DETECTED; PARAINFLUENZA VIRUS 3 NOT DETECTED; PARAINFLUENZA VIRUS 4 NOT DETECTED; RHINOVIRUS/ENTEROVIRUS NOT DETECTED; RSV- RESP PCR PANEL NOT DETECTED; SARS-CoV-2 -RESP PCR PANEL NOT DETECTED
== END 2022-07-20 23:27 | disposition short-term general hospital (02) ==
LOC: EDUNIT# → ED 20:41
DX: S12.101A Unspecified nondisplaced fracture of second cervical vertebra, initial encounter for closed fracture (principal); W10.9XXA Fall (on) (from) unspecified stairs and steps, initial encounter; Z79.01 Long term (current) use of anticoagulants; I10 Essential (primary) hypertension
CPT/HCPCS: 36415; 80048; 85025; 87633; 99285

== ENCOUNTER 2022-08-02 13:11 | Outpatient (CLI) | payer MEDICARE ==
[2022-08-02 17:41] LABS: BILIRUBIN,URINE NEGATIVE (NEGATIVE); GLUCOSE, URINE (UA) NEGATIVE (NEGATIVE); KETONES,URINE (UA) NEGATIVE (NEGATIVE); LEUKOCYTE ESTERASE, URINE NEGATIVE (NEGATIVE); NITRITE,URINE NEGATIVE (NEGATIVE); OCCULT BLOOD,URINE NEGATIVE (NEGATIVE); PROTEIN,URINE NEGATIVE (NEGATIVE); UROBILINOGEN,URINE 0.2 (NORMAL) E.U./dL (NORMAL)
[2022-08-02 17:47] LABS: CLARITY,URINE CLOUDY (CLEAR)
[2022-08-02 18:07] LABS: AMORPHOUS SEDIMENT,UR Marked /LPF; BACTERIA,URINE Rare /HPF (None Seen); RBC,URINE 0-5 /HPF (0-5); SQUAMOUS EPITHELIAL CELL,UR RARE Squamous (<= Few); WBC,URINE 0-3 /HPF (0-5)
== END 2022-08-02 23:59 | disposition home or self-care (01) ==
LOC: LAB.WCP 13:11
PROVIDERS: ATTEND Physician Assistant
DX: R35.0 Frequency of micturition (principal)
CPT/HCPCS: 81001; 87086

== ENCOUNTER 2022-10-11 10:50 | Outpatient (CLI) | payer MEDICARE ==
--- NOTE | 2022-10-11 12:55 | DEXA Report ---
PROCEDURE: Dexa Spine and/or Hip INDICATIONS: DISORDER OF BONE, OSTEOPENIA TECHNIQUE: Dual energy x-ray absorptiometry (DXA) was performed on a [employer]. Regions measur ed are the AP Spine, femoral neck, and if needed forearm. COMPARISON: DEXA, 05/18/2020. FINDINGS: Lumbar Spine: Bone Mineral Density 1.154 g/cm/cm,T score -0.6, normal Left Femoral Neck: Bone Mineral Density 0.772 g/cm/cm, T score -1.9, osteopenic Left Hip: Bone Mineral Density 0.864 g/cm/cm,T score minus 1., Osteopenia (T score greater or equal to -1.0: NORMAL) (T score from -1.1 to -2.4: OSTEOPENIA) (T score less than or equal to -2.5 to: OSTEOPOROSIS) Impression: 1. Based on WHO criteria, the patient has osteopenia. 2. Compared to the last exam, the patient's bone mineral density in lumbar spine and left hip is not significantly changed. Patients with diagnosis of osteoporosis or osteopenia should have regular bone mineral density assess ment. For those eligible for Medicare, routine testing is allowed once every 2 years. Testing frequ ency can be increased for patients who have rapidly progressing disease or for those who are receivin g medical therapy to restore bone mass. Reviewed by: Khurram Rivera MD on 10/11/2022 12:54 PM PDT Approved by: Khurram Rivera MD on 10/11/2022 12:54 PM PDT Station ID: [id number]
== END 2022-10-11 10:51 | disposition home or self-care (01) ==
LOC: DI 10:50
PROVIDERS: ATTEND Physician Assistant
DX: M85.89 Other specified disorders of bone density and structure, multiple sites (principal)

== ENCOUNTER 2022-11-29 07:45 | Outpatient (CLI) | payer MEDICARE ==
--- NOTE | 2022-11-29 16:54 | XRAY Report ---
PROCEDURE: Wrist 3 View LT INDICATIONS: WRIST JOINT PAIN TECHNIQUE: 3 views of the wrist were acquired. COMPARISON: None. FINDINGS: Bones: No fractures or dislocations. No suspicious bony lesions. Soft tissues: No suspicious soft tissue calcifications or masses. IMPRESSION: No visualized acute fracture or dislocation. However, occult injury cannot be excluded. Recommend dorina rt interval imaging follow-up in 7-10 days as clinically indicated for additional evaluation. Reviewed by: Arelis Ruvalcaba MD on 11/29/2022 4:53 PM PDT Approved by: Arelis Ruvalcaba MD on 11/29/2022 4:53 PM PDT Station ID: [id number]
== END 2022-11-29 08:00 | disposition home or self-care (01) ==
LOC: DI.N 07:45
PROVIDERS: ATTEND Physician Assistant
DX: M25.532 Pain in left wrist (principal)

== ENCOUNTER 2022-12-04 08:00 | Outpatient (CLI) | payer MEDICARE ==
--- NOTE | 2022-12-04 13:39 | XRAY Report ---
PROCEDURE: Wrist 3 View LT INDICATIONS: LEFT WRIST INJURY TECHNIQUE: 3 views of the wrist were acquired. COMPARISON: 11/29/2022. FINDINGS: Bones: Possible/equivocal nondisplaced radial styloid fracture. STT and first CMC joint degenerative changes. Soft tissues: No suspicious soft tissue calcifications. IMPRESSION: Possible/equivocal acute nondisplaced radial styloid fracture. If clinically indicated, consider repe at radiographs in 10-14 days or cross-sectional imaging. Reviewed by: Darrin Allan MD on 12/04/2022 1:37 PM PDT Approved by: Darrin Allan MD on 12/04/2022 1:37 PM PDT Station ID: [id number]
== END 2022-12-04 23:59 | disposition home or self-care (01) ==
LOC: DI.WOS 08:00
PROVIDERS: ATTEND Physician Assistant Surgical
DX: S62.92XA Unspecified fracture of left hand, initial encounter for closed fracture (principal)

== ENCOUNTER 2023-01-05 10:27 | Outpatient (CLI) | payer MEDICARE ==
--- NOTE | 2023-01-05 12:03 | XRAY Report ---
PROCEDURE: Cervical Spine Complete INDICATIONS: CERVIAL SPINAL FUSION TECHNIQUE: 4 views of the cervical spine acquired. COMPARISON: CT cervical spine 07/20/2022 FINDINGS: Bones: No fractures or dislocations to the C7 level. Postsurgical changes from C1 through C3 manager action ior spinal fixation. Hardware appears intact. There is reversal of normal cervical lordosis. Possible minimal anterolisthesis of C3 on C4. Minimal retrolisthesis of C5 on C6. Degenerative changes of the cervical spine. There is anterior osteophyte formation. Disc height loss, worse in the lower cervica l spine. Facet and uncovertebral arthropathy. Oblique images demonstrate osseous foraminal narrowing, greatest involving the lower cervical spine on the left. Soft tissues: No prevertebral soft tissue swelling. IMPRESSION: Status post C1-C3 posterior fixation. Hardware appears intact. Degenerative changes of t he cervical spine with reversal of normal cervical lordosis. Osseous neuroforaminal narrowing is seen , greatest involving the lower cervical spine the left. Reviewed by: Damon Teresa MD on 01/05/2023 12:02 PM PDT Approved by: Damon Teresa MD on 01/05/2023 12:02 PM PDT Station ID: [id number]
== END 2023-01-05 10:28 | disposition home or self-care (01) ==
LOC: DI 10:27
PROVIDERS: ATTEND Nurse Practitioner
DX: Z98.1 Arthrodesis status (principal); M47.812 Spondylosis without myelopathy or radiculopathy, cervical region; M48.02 Spinal stenosis, cervical region

== ENCOUNTER 2023-01-08 08:00 | Outpatient (CLI) | payer MEDICARE ==
--- NOTE | 2023-01-09 08:36 | XRAY Report ---
PROCEDURE: Wrist 3 View LT INDICATIONS: LEFT WRIST FRACTURE TECHNIQUE: 3 views of the wrist were acquired. COMPARISON: X-ray left wrist, 12/04/2022, 11/29/2022. FINDINGS: Bones: No fractures or dislocations. No suspicious bony lesions. [id number] triscaphe joint degeneration. Soft tissues: No suspicious soft tissue calcifications or masses. IMPRESSION: 1. No acute bony abnormality. If clinical suspicion for fracture persists, consider CT or MRI for fur ther evaluation. 2. 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 Reviewed by: Khurram Rivera MD on 01/09/2023 8:35 AM PDT Approved by: Khurram Rivera MD on 01/09/2023 8:35 AM PDT Station ID: [id number]
== END 2023-01-08 23:59 | disposition home or self-care (01) ==
LOC: DI.WOS 08:00
PROVIDERS: ATTEND Physician Assistant Surgical
DX: M19.032 Primary osteoarthritis, left wrist (principal)

== ENCOUNTER 2023-01-10 11:23 | Outpatient (CLI) | payer MEDICARE ==
--- NOTE | 2023-01-11 09:22 | Mammography Report ---
BILATERAL DIGITAL SCREENING MAMMOGRAM 3D/2D: 01/10/2023 CLINICAL: Routine screening. Comparison is made to exams dated: 08/02/2021 mammogram, 05/26/2019 mammogram, 07/15/2020 mammogram, mammogram, 06/05/2017 mammogram, and 04/27/2016 mammogram - [facility]. Both breasts are heterogeneously dense, which may obscure small masses (category c / 51-75% glandular tissue). No significant masses, calcifications, or other findings are seen in either breast. There has been no significant interval change. IMPRESSION: NEGATIVE There is no mammographic evidence of malignancy. A 1 year screening mammogram is recommended. Based on the Tyrer Cuzick model (a risk assessment model) the patients lifetime risk is 4.6% and her 10 year risk is 0.0%. According to the ACR, ACS, and NCCN guidelines, an annual breast MRI exam brian g with mammogram is recommended if the patients lifetime risk is 20% or greater. This exam was interpreted at Station ID: [id number]. NOTE: For mammograms, a report in lay terms will be sent to the patient. Approximately 15% of breast malignancies will not be visualized mammographically. In the management of a palpable breast mass, a negative mammogram must not discourage biopsy of a clinically suspicious lesion. Electronically Signed By: Liliya lowry/rose:01/10/2023 16:39:20 letter sent: No_Letter ACR BI-RADS Category 1: Negative 3341F PARENCHYMAL PATTERN: (D) - The breast(s) demonstrate(s) heterogeneously dense fibroglandular puma hardy. BI-RADS CATEGORY: (1) - 1 Mammogram [id number] 1 year screening LATERALITY: (B)
== END 2023-01-10 11:24 | disposition home or self-care (01) ==
LOC: DI 11:23
DX: Z12.31 Encounter for screening mammogram for malignant neoplasm of breast (principal)

== ENCOUNTER 2023-03-11 05:31 | Emergency (ER) | payer MEDICARE ==
--- NOTE | 2023-03-11 06:05 | ED Physician Documentation ---
PD HPI UPPER EXT INJURY - Stated complaint Stated Complaint: LT WRIST PX - Chief complaint Chief Complaint: Ext Problem - History obtained from History obtained from: Patient - Additonal information Additional information: Patient is a 78-year-old female presenting for evaluation of left wrist and hand pain after a fall last night around 9 PM. Patient states that she was doing balance exercises near a kitchen chair and lost her balance falling onto her left side. She denies hitting her head or having LOC. She reports pain primarily to the left hand and wrist. But also reports pain to the left shoulder. She tried Tylenol and ice without any improvement.She is on Eliquis. Review of Systems Constitutional: denies: Fever Cardiac: denies: Chest pain / pressure Respiratory: denies: Dyspnea GI: denies: Abdominal Pain Musculoskeletal: reports: Extremity pain Neurologic: denies: Head injury PD PAST MEDICAL HISTORY - Past Medical History Cardiovascular: Hypertension, High cholesterol, Murmur, Arrhythmia, Other Respiratory: None Neuro: None Endocrine/Autoimmune: None GI: None, Hemorrhoids CONTACT WORKER: None : None HEENT: Chronic vision loss Psych: None Musculoskeletal: None Derm: Psoriasis - Past Surgical History Past Surgical History: Yes /CONTACT WORKER: Hysterectomy Cardiovascular: Pacemaker, AICD HEENT: Cataracts, Other - Present Medications Home Medications: Ambulatory Orders Medication Instructions Recorded Confirmed Ca/D3/Mag/Zinc/Michelle/Srinivas/Mgbor 2 each PO DAILY 05/25/14 07/20/22 [Caltrate 600+D3+Min Chew Tab] Cholecalciferol (Vitamin D3) 1,000 unit PO DAILY 05/25/14 07/20/22 [D-2000] Losartan Potassium 100 mg PO DAILY 08/23/16 07/20/22 Amiodarone HCl 100 mg PO DAILY 12/25/20 07/20/22 Amlodipine Besylate [Norvasc] 2.5 mg PO BID 12/25/20 07/20/22 Apixaban [Eliquis] 5 mg ORAL BID 12/25/20 07/20/22 Atorvastatin [Lipitor] 10 mg ORAL DAILY PM 12/25/20 07/20/22 Estradiol [Vagifem] 07/20/22 Lisinopril [Zestril] 07/20/22 - Allergies Allergies/Adverse Reactions: Allergies Allergy/AdvReac Type Severity Reaction Status Date / Time adhesive AdvReac Rash Verified 02/09/23 20:48 amoxicillin trihydrate * AdvReac Hives Verified 07/20/22 20:48 [From Augmentin] lisinopril AdvReac Unknown Verified 07/20/22 20:48 potassium clavulanate * AdvReac Hives Verified 07/20/22 20:48 [From Augmentin] sulfamethoxazole AdvReac Hives Verified 07/20/22 20:48 [From Septra] trimethoprim [From Septra] AdvReac Hives Verified 07/20/22 20:48 nuts Allergy Unknown Uncoded 07/20/22 20:48 - Social History Does the pt smoke?: No Smoking Status: Never smoker Does the pt drink ETOH?: No Does the pt have substance abuse?: No - Immunizations Immunizations are current?: Yes - POLST Patient has POLST: No PD ED PE NORMAL - General General: Alert and oriented X 3, No acute distress, Well developed/nourished - HEENT HEENT: Atraumatic, Moist mucous membranes, Pharynx benign - Neck Neck: Supple, no meningeal sign, No bony TTP - Cardiac Cardiac: RRR, Strong equal pulses - Respiratory Respiratory: No respiratory distress, Clear bilaterally - Extremities Extremities: Other (Tenderness and swelling to left wrist and hand, pain on range of motion of left wrist, tenderness to left shoulder) - Neuro Neuro: Alert and oriented X 3, No motor deficit, No sensory deficit, Normal speech Eye Opening: Spontaneous Motor: Obeys Commands Verbal: Oriented GCS Score: 15 Results - Vitals Vitals: Vital Signs - 24 hr 03/11/23 05:40 Temperature 36.2 C L Heart Rate 59 L Respiratory 17 Rate Blood Pressure 162/72 H O2 Saturation 98 Oxygen O2 Source Room air PD Medical Decision Making - ED course Complexity details: reviewed results, re-evaluated patient, d/w patient ED course: Patient is a 78-year-old female presenting for evaluation after a fall last night while doing balance exercises. She is on a blood thinner. No head injury. She has tenderness and swelling to the left wrist and hand. Also reports pain to the left shoulder. No deformity noted to the left shoulder. X- rays were obtained of the left hand, left wrist and left shoulder. On review of these images there is an irregularity of the triquetral bone. She does have tenderness over this area. We will place her into a volar splint and have her follow-up with orthopedic surgery. She has seen Dr. Aguilar's office before. Patient declines need for pain medication. She is counseled on treatment plan, need for follow-up as well as concerning symptoms to return for. Departure - Departure Disposition: 01 Home, Self Care Clinical Impression: Fall at home Triquetral fracture Qualifiers: Encounter type: initial encounter Fracture type: closed Fracture alignment: nondisplaced Laterality: left Qualified Code(s): S62.115A - Nondisplaced fracture of triquetrum [cuneiform] bone, left wrist, initial encounter for closed fracture Wrist sprain Qualifiers: Encounter type: initial encounter Laterality: left Qualified Code(s): S63.502A - Unspecified sprain of left wrist, initial encounter Condition: Stable Instructions: ED Fx Wrist General Follow-Up: Edgard De Los Santos MD [Provider Admit Priv/Credential] - Comments: There is an irregularity to the triquetral bone Which is in your hand near your wrist joint. At this could represent a fracture and be the source for your pain and swelling. Therefore I am placing you into a splint and would recommend you continue with elevation and acetaminophen. I would also recommend close follow- up with orthopedic surgeon. I do not see any signs of injury in your left shoulder. Please return to the emergency department with any worsening symptoms. Forms: PCP List
--- OUTSIDE RECORDS SUMMARY | 2023-03-11 06:24 | EXTERNAL MEDICAL SUMMARY RPT | Continuity of Care Document ---
Author Name Unknown Address [address] [place] [address] Phone Organization [place] Address [address] [place] [address] Phone Care Team Providers Care Direct Support Professional Name Role Phone Unavailable Unavailable Unavailable Johnsonmckenna Castro Ijeoma Unavailable Unavailable GomezMatthew Ijeoma Unavailable Unavailable Allergies and Intolerances date description facility reaction severity Medications date description facility 2022-12-11 00:00 TRIAMTERENE-HCTZ TABS [facility] [place] 2022-12-28 00:00 TRIAMTERENE-HCTZ TABS [facility] [place] 2023-01-08 00:00 TRIAMTERENE-HCTZ TABS [facility] [place] 2023-01-12 00:00 TRIAMTERENE-HCTZ TABS [facility] [place] 2023-01-16 00:00 TRIAMTERENE-HCTZ TABS [facility] [place] 2023-02-01 00:00 TRIAMTERENE-HCTZ TABS [facility] [place] 2023-02-05 00:00 TRIAMTERENE-HCTZ TABS Walk[facility] [place] 2023-02-06 00:00 TRIAMTERENE-HCTZ TABS [facility] [place] 2023-02-07 00:00 TRIAMTERENE-HCTZ TABS [facility] [place] 2023-02-13 00:00 TRIAMTERENE-HCTZ TABS [facility] [place] 2022-12-11 00:00 ALENDRONATE SODIUM [facility] [place] 2022-12-28 00:00 ALENDRONATE SODIUM [facility] 2023-01-08 00:00 ALENDRONATE SODIUM [facility] 2023-01-12 00:00 ALENDRONATE SODIUM [facility] 2023-01-16 00:00 ALENDRONATE SODIUM [facility] 2023-02-01 00:00 ALENDRONATE SODIUM [facility] 2023-02-05 00:00 ALENDRONATE SODIUM [facility] 2023-02-06 00:00 ALENDRONATE SODIUM [facility] 2023-02-07 00:00 ALENDRONATE SODIUM [facility] 2023-02-13 00:00 ALENDRONATE SODIUM [facility] 2022-12-11 00:00 DILTIAZEM HCL [facility] 2022-12-28 00:00 DILTIAZEM HCL [facility] 2023-01-08 00:00 DILTIAZEM HCL [facility] 2023-01-12 00:00 DILTIAZEM HCL [facility] 2023-01-16 00:00 DILTIAZEM HCL [facility] 2023-02-01 00:00 DILTIAZEM HCL [facility] 2023-02-05 00:00 DILTIAZEM HCL [facility] 2023-02-06 00:00 DILTIAZEM HCL [facility] 2023-02-07 00:00 DILTIAZEM HCL [facility] 2023-02-13 00:00 DILTIAZEM HCL [facility] 2022-12-11 00:00 TRIAMTERENE-HCTZ TABS [facility] [place] 2022-12-28 00:00 TRIAMTERENE-HCTZ TABS [facility] [place] 2023-01-08 00:00 TRIAMTERENE-HCTZ TABS [facility] [place] 2023-01-12 00:00 TRIAMTERENE-HCTZ TABS [facility] [place] 2023-01-16 00:00 TRIAMTERENE-HCTZ TABS [facility] [place] 2023-02-01 00:00 TRIAMTERENE-HCTZ TABS [facility] [place] 2023-02-05 00:00 TRIAMTERENE-HCTZ TABS [facility] [place] 2023-02-06 00:00 TRIAMTERENE-HCTZ TABS [facility] [place] 2023-02-07 00:00 TRIAMTERENE-HCTZ TABS [facility] [place] 2023-02-13 00:00 TRIAMTERENE-HCTZ TABS [facility] [place] 2022-12-11 00:00 RED YEAST RICE EXTRACT [facility] 2022-12-28 00:00 RED YEAST RICE EXTRACT [facility] 2023-01-08 00:00 RED YEAST RICE EXTRACT [facility] 2023-01-12 00:00 RED YEAST RICE EXTRACT [facility] 2023-01-16 00:00 RED YEAST RICE EXTRACT [facility] 2023-02-01 00:00 RED YEAST RICE EXTRACT [facility] 2023-02-05 00:00 RED YEAST RICE EXTRACT [facility] 2023-02-06 00:00 RED YEAST RICE EXTRACT [facility] 2023-02-07 00:00 RED YEAST RICE EXTRACT [facility] [place] 2023-02-13 00:00 RED YEAST RICE EXTRACT [facility] 2022-12-11 00:00 ALENDRONATE SODIUM [facility] [place] 2022-12-28 00:00 ALENDRONATE SODIUM [facility] [place] 2023-01-08 00:00 ALENDRONATE SODIUM [facility] [place] 2023-01-12 00:00 ALENDRONATE SODIUM [facility] [place] 2023-01-16 00:00 ALENDRONATE SODIUM [facility] [place] 2023-02-01 00:00 ALENDRONATE SODIUM [facility] [place] 2023-02-05 00:00 ALENDRONATE SODIUM [facility] [place] 2023-02-06 00:00 ALENDRONATE SODIUM [facility] [place] 2023-02-07 00:00 ALENDRONATE SODIUM [facility] [place] 2023-02-13 00:00 ALENDRONATE SODIUM [facility] [place] 2022-12-11 00:00 DILTIAZEM HCL [facility] [place] 2022-12-28 00:00 DILTIAZEM HCL [facility] [place] 2023-01-08 00:00 DILTIAZEM HCL [facility] [place] 2023-01-12 00:00 DILTIAZEM HCL [facility] [place] 2023-01-16 00:00 DILTIAZEM HCL [facility] [place] 2023-02-01 00:00 DILTIAZEM HCL [facility] [place] 2023-02-05 00:00 DILTIAZEM HCL [facility] [place] 2023-02-06 00:00 DILTIAZEM HCL [facility] 2023-02-07 00:00 DILTIAZEM HCL [facility] [place] 2023-02-13 00:00 DILTIAZEM HCL [facility] [place] 2022-12-11 00:00 TRIAMTERENE-HCTZ TABS [facility] [place] 2022-12-28 00:00 TRIAMTERENE-HCTZ TABS [facility] [place] 2023-01-08 00:00 TRIAMTERENE-HCTZ TABS [facility] [place] 2023-01-12 00:00 TRIAMTERENE-HCTZ TABS [facility] [place] 2023-01-16 00:00 TRIAMTERENE-HCTZ TABS [facility] [place] 2023-02-01 00:00 TRIAMTERENE-HCTZ TABS [facility] [place] 2023-02-05 00:00 TRIAMTERENE-HCTZ TABS [facility] [place] 2023-02-06 00:00 TRIAMTERENE-HCTZ TABS [facility] [place] 2023-02-07 00:00 TRIAMTERENE-HCTZ TABS [facility] [place] 2023-02-13 00:00 TRIAMTERENE-HCTZ TABS [facility] [place] 2022-12-11 00:00 RED YEAST RICE EXTRACT [facility] [place] 2022-12-28 00:00 RED YEAST RICE EXTRACT [facility] [place] 2023-01-08 00:00 RED YEAST RICE EXTRACT [facility] [place] 2023-01-12 00:00 RED YEAST RICE EXTRACT [facility] [place] 2023-01-16 00:00 RED YEAST RICE EXTRACT [facility] [place] 2023-02-01 00:00 RED YEAST RICE EXTRACT [facility] [place] 2023-02-05 00:00 RED YEAST RICE EXTRACT [facility] [place] 2023-02-06 00:00 RED YEAST RICE EXTRACT [facility] [place] 2023-02-07 00:00 RED YEAST RICE EXTRACT [facility] [place] 2023-02-13 00:00 RED YEAST RICE EXTRACT [facility] [place] 2022-12-11 00:00 TRIAMTERENE-HCTZ TABS [facility] [place] 2022-12-28 00:00 TRIAMTERENE-HCTZ TABS [facility] [place] 2023-01-08 00:00 TRIAMTERENE-HCTZ TABS [facility] [place] 2023-01-12 00:00 TRIAMTERENE-HCTZ TABS [facility] [place] 2023-01-16 00:00 TRIAMTERENE-HCTZ TABS [facility] [place] 2023-02-01 00:00 TRIAMTERENE-HCTZ TABS [facility] [place] 2023-02-05 00:00 TRIAMTERENE-HCTZ TABS [facility] [place] 2023-02-06 00:00 TRIAMTERENE-HCTZ TABS [facility] [place] 2023-02-07 00:00 TRIAMTERENE-HCTZ TABS [facility] [place] 2023-02-13 00:00 TRIAMTERENE-HCTZ TABS [facility] [place] 2022-12-11 00:00 DILTIAZEM HCL [facility] [place] 2022-12-28 00:00 DILTIAZEM HCL [facility] [place] 2023-01-08 00:00 DILTIAZEM HCL [facility] [place] 2023-01-12 00:00 DILTIAZEM HCL [facility] [place] 2023-01-16 00:00 DILTIAZEM HCL [facility] [place] 2023-02-01 00:00 DILTIAZEM HCL [facility] [place] 2023-02-05 00:00 DILTIAZEM HCL [facility] [place] 2023-02-06 00:00 DILTIAZEM HCL [facility] [place] 2023-02-07 00:00 DILTIAZEM HCL [facility] [place] 2023-02-13 00:00 DILTIAZEM HCL [facility] [place] 2022-12-11 00:00 ALENDRONATE SODIUM [facility] [place] 2022-12-28 00:00 ALENDRONATE SODIUM [facility] [place] 2023-01-08 00:00 ALENDRONATE SODIUM [facility] [place] 2023-01-12 00:00 ALENDRONATE SODIUM [facility] [place] 2023-01-16 00:00 ALENDRONATE SODIUM [facility] [place] 2023-02-01 00:00 ALENDRONATE SODIUM [facility] [place] 2023-02-05 00:00 ALENDRONATE SODIUM [facility] [place] 2023-02-06 00:00 ALENDRONATE SODIUM [facility] [place] 2023-02-07 00:00 ALENDRONATE SODIUM [facility] [place] 2023-02-13 00:00 ALENDRONATE SODIUM [facility] [place] 2022-12-11 00:00 DILTIAZEM HCL [facility] [place] 2022-12-28 00:00 DILTIAZEM HCL [facility] [place] 2023-01-08 00:00 DILTIAZEM HCL [facility] [place] 2023-01-12 00:00 DILTIAZEM HCL [facility] [place] 2023-01-16 00:00 DILTIAZEM HCL [facility] [place] 2023-02-01 00:00 DILTIAZEM HCL [facility] [place] 2023-02-05 00:00 DILTIAZEM HCL [facility] [place] 2023-02-06 00:00 DILTIAZEM HCL [facility] [place] 2023-02-07 00:00 DILTIAZEM HCL [facility] [place] 2023-02-13 00:00 DILTIAZEM HCL [facility] [place] 2022-12-11 00:00 ALENDRONATE SODIUM [facility] [place] 2022-12-28 00:00 ALENDRONATE SODIUM [facility] [place] 2023-01-08 00:00 ALENDRONATE SODIUM [facility] [place] 2023-01-12 00:00 ALENDRONATE SODIUM [facility] [place] 2023-01-16 00:00 ALENDRONATE SODIUM [facility] [place] 2023-02-01 00:00 ALENDRONATE SODIUM [facility] [place] 2023-02-05 00:00 ALENDRONATE SODIUM [facility] [place] 2023-02-06 00:00 ALENDRONATE SODIUM [facility] [place] 2023-02-07 00:00 ALENDRONATE SODIUM [facility] [place] 2023-02-13 00:00 ALENDRONATE SODIUM [facility] [place] 2022-12-11 00:00 RED YEAST RICE EXTRACT [facility] [place] 2022-12-28 00:00 RED YEAST RICE EXTRACT [facility] [place] 2023-01-08 00:00 RED YEAST RICE EXTRACT [facility] [place] 2023-01-12 00:00 RED YEAST RICE EXTRACT [facility] [place] 2023-01-16 00:00 RED YEAST RICE EXTRACT [facility] [place] 2023-02-01 00:00 RED YEAST RICE EXTRACT [facility] [place] 2023-02-05 00:00 RED YEAST RICE EXTRACT [facility] [place] 2023-02-06 00:00 RED YEAST RICE EXTRACT [facility] [place] 2023-02-07 00:00 RED YEAST RICE EXTRACT [facility] [place] 2023-02-13 00:00 RED YEAST RICE EXTRACT [facility] [place] 2022-12-11 00:00 RED YEAST RICE EXTRACT [facility] [place] 2022-12-28 00:00 RED YEAST RICE EXTRACT [facility] [place] 2023-01-08 00:00 RED YEAST RICE EXTRACT [facility] [place] 2023-01-12 00:00 RED YEAST RICE EXTRACT [facility] [place] 2023-01-16 00:00 RED YEAST RICE EXTRACT [facility] [place] 2023-02-01 00:00 RED YEAST RICE EXTRACT [facility] 2023-02-05 00:00 RED YEAST RICE EXTRACT [facility] [place] 2023-02-06 00:00 RED YEAST RICE EXTRACT [facility] [place] 2023-02-07 00:00 RED YEAST RICE EXTRACT [facility] [place] 2023-02-13 00:00 RED YEAST RICE EXTRACT [facility] [place] 2022-12-11 00:00 ergocalciferol (vitamin d2 [facility] [place] 2022-12-28 00:00 ergocalciferol (vitamin d2 [facility] 2023-01-08 00:00 ergocalciferol (vitamin d2 [facility] [place] 2023-01-12 00:00 ergocalciferol (vitamin d2 [facility] [place] 2023-01-16 00:00 ergocalciferol (vitamin d2 [facility] 2023-02-01 00:00 ergocalciferol (vitamin d2 [facility] 2023-02-05 00:00 ergocalciferol (vitamin d2 [facility] 2023-02-06 00:00 ergocalciferol (vitamin d2 [facility] 2023-02-07 00:00 ergocalciferol (vitamin d2 [facility] [place] 2023-02-13 00:00 ergocalciferol (vitamin d2 [facility] [place] Problems date description facility 2022-12-28 00:00 Closed fracture of d istal end of left radius [facility] [place] 2022-12-28 00:00 Unspecified fracture of the lower end of left radius, initial encounter for closed fracture [facility] 2023-02-06 00:00 Specific patient counseling ses kurt [facility] [place] 2023-02-06 00:00 Milia [facility] [place] 2023-02-06 00:00 Sebaceous cyst [facility] [place] 2023-02-06 00:00 Epidermal cyst [facility] [place] 2023-02-06 00:00 Other specified counseling [facility] [place] Results/Labs test date facility value unit notes Social History date description facility 2023-02-05 00:00 Never smoker [facility] 2023-02-06 00:00 Never smoker [facility] Vital Signs date measurement value units 2023-02-06 00:00 BMI 23.94 kg/m2 2023-02-06 00:00 BP_diastolic 66 mmHg 2023-02-06 00:00 BP_systolic 134 mmHg 2023-02-06 00:00 heart_rate 65 /min 2023-02-06 00:00 height_metric 153.67 cm 2023-02-06 00:00 height_standard 60.5 in 2023-02-06 00:00 respiration_rate 18 /min 2023-02-06 00:00 weight_metric 56.34 kg 2023-02-06 00:00 weight_standard 124.2 lb
[2023-03-11 07:36] VITALS: BP 160/70; O2SAT 99
--- NOTE | 2023-03-11 09:01 | XRAY Report ---
PROCEDURE: Hand 3 View LT INDICATIONS: fall TECHNIQUE: 3 views of the hand(s) acquired. COMPARISON: None. FINDINGS: Bones: Possible defect of the triquetral bone which may represent a nondisplaced fracture. Advanced degenerative changes of the second through fifth distal interphalangeal joints. Soft tissues: No suspicious soft tissue calcifications or masses. IMPRESSION: Possible defect of the triquetral bone which may represent a nondisplaced fracture. Recommend clinica l correlation and follow-up radiograph in 10-14 days. Findings are concordant with preliminary interpretation provided by [facility]. Reviewed by: Damon Teresa MD on 03/11/2023 8:59 AM PDT Approved by: Damon Teresa MD on 03/11/2023 8:59 AM PDT Station ID: [id number]
--- NOTE | 2023-03-11 09:02 | XRAY Report ---
PROCEDURE: Shoulder 3 View LT INDICATIONS: fall TECHNIQUE: 4 views of the shoulder were acquired. COMPARISON: None. FINDINGS: Bones: No fractures or dislocations. No suspicious bony lesions. Visualized ribs appear intact. Mi ld acromial clavicular osteoarthritic changes. Soft tissues: No suspicious soft tissue calcifications. The visualized lungs are within normal limi ts. Left chest wall pacemaking device is partially visualized. IMPRESSION: No acute bony abnormality. Findings are concordant with preliminary interpretation provided by [facility]. Reviewed by: Damon Teresa MD on 03/11/2023 9:00 AM PDT Approved by: Damon Teresa MD on 03/11/2023 9:00 AM PDT Station ID: [id number]
--- NOTE | 2023-03-11 09:03 | XRAY Report ---
PROCEDURE: Wrist 3 View LT INDICATIONS: fall TECHNIQUE: 3 views of the wrist were acquired. COMPARISON: None. FINDINGS: Bones: Apparent defect in the triquetral bone which may represent an acute nondisplaced fracture. No other acute fractures are seen. Advanced degenerative changes in the second through fifth distal int erphalangeal joints. No suspicious bony lesions. Soft tissues: No suspicious soft tissue calcifications or masses. IMPRESSION: Apparent defect in the triquetral bone which may represent an acute nondisplaced fracture. Findings are concordant with preliminary interpretation provided by [facility]. Reviewed by: Damon Teresa MD on 03/11/2023 9:01 AM PDT Approved by: Damon Teresa MD on 03/11/2023 9:01 AM PDT Station ID: [id number]
== END 2023-03-11 07:15 | disposition home or self-care (01) ==
LOC: ED 05:31
DX: S62.115A Nondisplaced fracture of triquetrum [cuneiform] bone, left wrist, initial encounter for closed fracture (principal); S63.502A Unspecified sprain of left wrist, initial encounter; W18.30XA Fall on same level, unspecified, initial encounter; Y93.B9 Activity, other involving muscle strengthening exercises; Y92.000 Kitchen of unspecified non-institutional (private) residence as the place of occurrence of the external cause; I10 Essential (primary) hypertension; E78.00 Pure hypercholesterolemia, unspecified; Z79.01 Long term (current) use of anticoagulants; Z79.899 Other long term (current) drug therapy
CPT/HCPCS: 99283; 99284

== ENCOUNTER 2023-03-19 08:00 | Outpatient (CLI) | payer MEDICARE ==
--- NOTE | 2023-03-19 16:47 | XRAY Report ---
PROCEDURE: Wrist 3 View LT INDICATIONS: LEFT WRIST PAIN TECHNIQUE: 3 views of the wrist were acquired. COMPARISON: Left hand and wrist radiographs 03/11/2023 FINDINGS: Bones: Previously reported possible defect of the triquetrum is not definitely redemonstrated. Degen erative changes in the wrist are again seen that are most prominent at the triscaphe joint. Soft tissues: Nonspecific soft tissue edema surrounding the wrist. No suspicious soft tissue calcifi cation. IMPRESSION: Previously reported possible triquetral fracture is not definitely visualized. Persistent soft tissue edema. If symptoms persist, consider CT or MRI of the wrist. Reviewed by: Darrin Hernandez MD on 03/19/2023 4:46 PM PDT Approved by: Darrin Hernandez MD on 03/19/2023 4:46 PM PDT Station ID: [id number]
== END 2023-03-19 23:59 | disposition home or self-care (01) ==
LOC: DI.WOS 08:00
PROVIDERS: ATTEND Physician Assistant Surgical
DX: M25.532 Pain in left wrist (principal); R60.0 Localized edema

== ENCOUNTER 2023-04-23 08:00 | Outpatient (CLI) | payer MEDICARE ==
--- NOTE | 2023-04-23 20:22 | XRAY Report ---
PROCEDURE: Wrist 3 View LT INDICATIONS: LEFT WRIST PAIN TECHNIQUE: 3 views of the wrist were acquired. COMPARISON: 03/19/2023 FINDINGS: Bones: Stable degenerative changes particularly at the triscaphe joint. Normal bone mineralization. Radiocarpal joint space narrowing. No intrinsic lesion. Soft tissues: No suspicious soft tissue calcifications or masses. IMPRESSION: Stable degenerative changes Reviewed by: Hilton Wong MD on 04/23/2023 7:20 PM [place] Approved by: Hilton Wong MD on 04/23/2023 7:20 PM AKST Station ID: [id number]
== END 2023-04-23 23:59 | disposition home or self-care (01) ==
LOC: DI.WOS 08:00
PROVIDERS: ATTEND Physician Assistant Surgical
DX: S62.115A Nondisplaced fracture of triquetrum [cuneiform] bone, left wrist, initial encounter for closed fracture (principal); M19.032 Primary osteoarthritis, left wrist

== ENCOUNTER 2023-06-28 10:12 | Outpatient (CLI) | payer MEDICARE ==
--- NOTE | 2023-06-28 16:15 | XRAY Report ---
PROCEDURE: Shoulder 3 View LT INDICATIONS: LEFT SHOULDER PAIN TECHNIQUE: 3 views of the shoulder were acquired. COMPARISON: None. FINDINGS: Bones: No fractures or dislocations. No suspicious bony lesions. Visualized ribs appear intact. Moderate to severe acromioclavicular degenerative narrowing. No erosions. Soft tissues: No suspicious soft tissue calcifications. The visualized lungs are within normal limi ts. Partially visualized pacemaker. IMPRESSION: Acromioclavicular arthritic change. Reviewed by: Arelis Ruvalcaba MD on 06/28/2023 4:13 PM PST Approved by: Areils Ruvalcaba MD on 06/28/2023 4:13 PM PST Station ID: [id number]
== END 2023-06-28 23:59 | disposition home or self-care (01) ==
LOC: DI.WOS 10:12
PROVIDERS: ATTEND Physician Assistant Surgical
DX: M19.012 Primary osteoarthritis, left shoulder (principal); M75.02 Adhesive capsulitis of left shoulder

== ENCOUNTER 2023-07-12 08:00 | Outpatient (CLI) | payer MEDICARE ==
[2023-07-12 17:58] LABS: BILIRUBIN,URINE NEGATIVE (NEGATIVE); GLUCOSE, URINE (UA) NEGATIVE (NEGATIVE); KETONES,URINE (UA) TRACE mg/dL (NEGATIVE); LEUKOCYTE ESTERASE, URINE MODERATE (NEGATIVE); NITRITE,URINE NEGATIVE (NEGATIVE); OCCULT BLOOD,URINE NEGATIVE (NEGATIVE); PROTEIN,URINE TRACE mg/dL (NEGATIVE); UROBILINOGEN,URINE 0.2 (NORMAL) E.U./dL (NORMAL)
[2023-07-12 18:02] LABS: CLARITY,URINE CLOUDY (CLEAR)
[2023-07-12 18:10] LABS: BACTERIA,URINE Few /HPF (None Seen); RBC,URINE 0-5 /HPF (0-5); SQUAMOUS EPITHELIAL CELL,UR RARE Squamous (<= Few)
[2023-07-12 18:11] LABS: AMORPHOUS SEDIMENT,UR Moderate /LPF; CRYSTALS,URINE 6-10 Calcium Oxalate /LPF
== END 2023-07-12 23:59 | disposition home or self-care (01) ==
LOC: LAB.WCP 08:00
PROVIDERS: ATTEND Physician Assistant
DX: R35.0 Frequency of micturition (principal)
CPT/HCPCS: 81001; 87077; 87086; 87181

== ENCOUNTER 2023-08-22 16:11 | Emergency (ER) | payer MEDICARE ==
--- NOTE | 2023-08-22 16:46 | ED Physician Documentation ---
PD HPI MAJOR TRAUMA - Stated complaint Stated Complaint: FALL - Chief complaint Chief Complaint: Trauma Hd/Nk - History obtained from History obtained from: Patient, Family - Additional information Additional information: 78-year-old woman with history of cardiac arrest, AICD in place, neck fracture with fusion, had a fall down the stairs today. She was watering her plants and kind of keeled forward and hit her head and then her chest wall. She also has an abrasion above the right forearm. She complains of left hip pain but is able to walk and bear weight. She also felt like her sternum was hurting when she put on the seatbelt on the way here. She is on Eliquis. No loss of consciousness. She is up-to-date on tetanus. 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 defibrillator. cardiac arrest. broken neck - Past Surgical History Past Surgical History: Yes /APPAREL PATTERNMAKER: Hysterectomy Cardiovascular: Pacemaker, AICD HEENT: Cataracts, Other - Present Medications Home Medications: Ambulatory Orders Medication Instructions Recorded Confirmed Ca/D3/Mag/Zinc/Michelle/Srinivas/Mgbor 2 each PO DAILY 05/25/14 08/22/23 [Caltrate 600+D3+Min Chew Tab] Cholecalciferol (Vitamin D3) 1,000 unit PO DAILY 05/25/14 08/22/23 [D-2000] Amiodarone HCl 50 mg PO DAILY 12/25/20 08/22/23 Amlodipine Besylate [Norvasc] 2.5 mg PO BID 12/25/20 08/22/23 Apixaban [Eliquis] 5 mg ORAL BID 12/25/20 08/22/23 Atorvastatin [Lipitor] 10 mg ORAL DAILY PM 12/25/20 08/22/23 Estradiol [Vagifem] 1 applic PV DAILY 07/20/22 08/22/23 Alendronate [Fosamax] 1 tab PO DAILY 08/22/23 08/22/23 - Allergies Allergies/Adverse Reactions: Allergies Allergy/AdvReac Type Severity Reaction Status Date / Time adhesive AdvReac Rash Verified 08/22/23 16:45 amoxicillin trihydrate * AdvReac Hives Verified 08/22/23 16:45 [From Augmentin] lisinopril AdvReac Unknown Verified 08/22/23 16:45 potassium clavulanate * AdvReac Hives Verified 08/22/23 16:45 [From Augmentin] sulfamethoxazole AdvReac Hives Verified 08/22/23 16:45 [From Septra] trimethoprim [From Septra] AdvReac Hives Verified 08/22/23 16:45 nuts Allergy Unknown Uncoded 08/22/23 16:45 - Social History Does the pt smoke?: No Smoking Status: Never smoker Does the pt drink ETOH?: No Does the pt have substance abuse?: No - Immunizations Immunizations are current?: Yes - POLST Patient has POLST: No PD ED PE NORMAL - Vitals Vital signs reviewed: Yes - General General: Alert and oriented X 3, No acute distress - HEENT HEENT: PERRL, EOMI - Neck Neck: Supple, no meningeal sign, No bony TTP - Cardiac Cardiac: RRR, No murmur - Respiratory Respiratory: No respiratory distress, Clear bilaterally, Other (Mild tenderness over the sternum) - Abdomen Abdomen: Non tender - Back Back: No CVA TTP, No spinal TTP - Extremities Extremities: Other (Left hip is minimally tender laterally, painless internal and external range of motion. She is able to walk and bear weight without obvious pain.) - Neuro Neuro: Alert and oriented X 3, Normal speech Results - Vitals Vitals: Vital Signs - 24 hr 08/22/23 16:27 Temperature 36.9 C Heart Rate 60 Respiratory 17 Rate Blood Pressure 142/66 H O2 Saturation 99 Oxygen O2 Source Room air - Rads (name of study) CT head, cervical spine, chest Relevant Findings:: Final report received, Discussed with rads (He felt that the manubrial irregularity was likely old fracture or incidental finding as opposed to acute fracture after discussion.), EMP independent interpretation of test Departure - Departure Disposition: 01 Home, Self Care Clinical Impression: Adequate anticoagulation on anticoagulant therapy, Abrasion of right forearm Contusion of left hip Qualifiers: Encounter type: initial encounter Qualified Code(s): S70.02XA - Contusion of left hip, initial encounter Head injury Qualifiers: Encounter type: initial encounter Qualified Code(s): S09.90XA - Unspecified injury of head, initial encounter Chest wall contusion Qualifiers: Encounter type: initial encounter Laterality: unspecified laterality Qualified Code(s): S20.219A - Contusion of unspecified front wall of thorax, initial encounter Condition: Good Record reviewed to determine appropriate education?: Yes Instructions: ED Abrasion, ED Contusion Chest Wall, ED Head Injury Closed Comments: We did CAT scans of your head, neck, and chest. The only potential traumatic finding, is that you do have an irregularity of your manubrium. This could be a nondisplaced fracture, but I discussed it with the radiologist and he feels like it also could be from your prior CPR for couple of years ago. Continue current medications. For the abrasion on your forearm you can wash it once a day with soap and water, then apply bacitracin ointment which is available [id number] and a nonstick dressing such as a Telfa and a loose wrap. Call your doctor to arrange a follow-up appointment, make the next available appointment. In the interim, return anytime if worse or if new symptoms develop. Forms: PCP List
--- NOTE | 2023-08-22 17:04 | XRAY Report ---
PROCEDURE: Hip w/Pelvis 2-3V LT INDICATIONS: hip inj TECHNIQUE: 2 views of the hip were acquired. COMPARISON: None. FINDINGS: Crosstable lateral view is mildly suboptimal. Bones: No fractures or dislocations. Mild bilateral femoroacetabular joint space narrowing. No susp icious bony lesions. Soft tissues: No suspicious soft tissue calcifications or masses. IMPRESSION: Crosstable lateral view is mildly suboptimal. 1.No acute bony abnormality. If there remains a high clinical concern for fracture, including inabili ty to bear weight, consider cross-sectional imaging to exclude an occult fracture. 2.Mild bilateral hip joint space narrowing. Reviewed by: Maxime Peña MD on 08/22/2023 5:03 PM PDT Approved by: Maxime Peña MD on 08/22/2023 5:03 PM PDT Station ID: [id number]
--- NOTE | 2023-08-22 17:23 | CT Report ---
PROCEDURE: Head WO INDICATIONS: head inj TECHNIQUE: Noncontrast 4.5 mm thick angled axial sections acquired from the foramen magnum to the vertex. For r adiation dose reduction, the following was used: automated exposure control, adjustment of mA and/or kV according to patient size. COMPARISON: Head CT without, 07/20/2022. FINDINGS: Image quality: Excellent. CSF spaces: Basal cisterns are patent. No extra-axial fluid collections. Ventricles are symmetrical in size and shape. Brain: No midline shift. No intracranial masses or hemorrhage. Pickering-white matter interface is norm al. There is mild cerebral volume loss. Mild periventricular white matter chronic small vessel ische angelita changes are present. Skull and face: Calvarium and visualized facial bones are intact, without suspicious lesions. Sinuses: Visualized sinuses and mastoids are clear. IMPRESSION: No acute intracranial pathology. Reviewed by: Khurram Rivera MD on 08/22/2023 4:21 PM LUIS F Approved by: Khurram Rivera MD on 08/22/2023 4:21 PM AKDT Station ID: [id number]
--- NOTE | 2023-08-22 17:45 | CT Report ---
PROCEDURE: Cervical Spine WO INDICATIONS: neck inj TECHNIQUE: Noncontrast 3 mm thick sections acquired from the skull base to the T4 level. Sagittal and coronal r eformats were then constructed. For radiation dose reduction, the following was used: automated exp osure control, adjustment of mA and/or kV according to patient size. COMPARISON: Cervical spine radiographs 01/05/2023. CT cervical spine 07/20/2022. FINDINGS: Image quality: Excellent. Bones: C1-C3 posterior fixation. No hardware fracture. Ankylosis at C5-C6. Vertebral body osteophyte s. No acute fractures or dislocations. Suspect fractures at C1 bilaterally, (19/21). Prior fracture at C2 is mostly healed. Anatomic alignment. Visualized superior ribs are intact. Soft tissues: Prevertebral soft tissues are normal in thickness. No paravertebral hematomas. No ap ical pneumothoraces. Pacemaker leads. IMPRESSION: No acute fracture identified. C1-C3 posterior fixation. Reviewed by: Naveen Sneed MD on 08/22/2023 5:44 PM PDT Approved by: Naveen Sneed MD on 08/22/2023 5:44 PM PDT Station ID: [id number]
--- NOTE | 2023-08-22 17:47 | CT Report ---
PROCEDURE: Chest WO INDICATIONS: chest wall inj TECHNIQUE: A CT scan of the chest was performed. Intravenous contrast media was not administered. Images were re corded and evaluated at appropriate window settings. Reformats: axial MIP of the chest, coronal and s agittal. For radiation dose reduction, the following was used: automated exposure control, adjustment of mA and/or kV according to patient size. COMPARISON: Chest x-ray, 08/10/2020. FINDINGS: Image quality: Diagnostic. Chest wall and lower neck: No thyroid nodule which requires sonographic follow up. No axillary or sup raclavicular adenopathy by size. There is a cardiac pacemaker in the left anterior chest. Lungs and pleura: No consolidation. No pleural effusions. No pneumothorax. No suspicious pulmonary n odules which require follow up. Mediastinum: Heart size is normal. No pericardial effusion. No large vessel abnormality. No mediastin al adenopathy by size criteria. Small hiatal hernia. Bones: There is subtle cortical depression in the anterior cortex of the manubrium, suggesting nondis placed fracture. No aggressive osseous abnormality. A small sclerotic bone lesion is seen in the medi al head of the right clavicle, most likely a bone island. Old healed left seventh rib fracture is not ed. Upper Abdomen: There are several low-density cortical nodules in the left kidney, most likely renal c ysts. IMPRESSION: 1. No cortical depression in the anterior cortex of the manubrium. Differential diagnoses are nondisp laced fracture versus artifact. Recommend correlation with focal pain and tenderness. 2. Old healed left seventh rib fracture. Reviewed by: Khurram Rivera MD on 08/22/2023 4:45 PM AKDT Approved by: Khurram Rivera MD on 08/22/2023 4:45 PM AKDT Station ID: [id number]
[2023-08-22 18:18] VITALS: BP 134/80; O2SAT 98
== END 2023-08-22 18:16 | disposition home or self-care (01) ==
LOC: ED 16:11
DX: S09.90XA Unspecified injury of head, initial encounter (principal); S50.811A Abrasion of right forearm, initial encounter; S70.212A Abrasion, left hip, initial encounter; S20.319A Abrasion of unspecified front wall of thorax, initial encounter; W18.30XA Fall on same level, unspecified, initial encounter; I10 Essential (primary) hypertension; I48.91 Unspecified atrial fibrillation; Z95.0 Presence of cardiac pacemaker; Z79.01 Long term (current) use of anticoagulants
CPT/HCPCS: 99284

== ENCOUNTER 2023-08-25 08:34 | Outpatient (CLI) | payer MEDICARE ==
[2023-08-25 09:06] LABS: BASOPHILS # (AUTO) 0.1 10^3/uL (0.0-0.1); BASOPHILS % (AUTO) 1.2 %; EOSINOPHILS # (AUTO) 1.5 10^3/uL (0.0-0.7); EOSINOPHILS % (AUTO) 18.5 %; HCT - HEMATOCRIT 44.4 % (37.0-47.0); HGB - HEMOGLOBIN 14.4 g/dL (12.0-16.0); LYMPHOCYTES # (AUTO) 1.3 10^3/uL (1.5-3.5); LYMPHOCYTES % (AUTO) 15.7 %; MEAN CORPUSCULAR HEMOGLOBIN 30.3 pg (27.0-31.0); MEAN CORPUSCULAR HGB CONC 32.4 g/dL (32.0-36.0); MEAN CORPUSCULAR VOLUME 93.5 fL (81.0-99.0); MEAN PLATELET VOLUME 11.3 fL (7.9-10.8); MONOCYTES # (AUTO) 0.5 10^3/uL (0.0-1.0); MONOCYTES % (AUTO) 6.5 %; NEUTROPHILS # (AUTO) 4.6 10^3/uL (1.5-6.6); NEUTROPHILS % (AUTO) 57.9 %; PLT - PLATELET COUNT 250 10^3/uL (130-450); RED BLOOD COUNT 4.75 10^6/uL (4.20-5.40)
[2023-08-25 09:10] LABS: CALCIUM 9.7 mg/dL (8.5-10.3); CREATININE 1.1 mg/dL (0.6-1.3); POTASSIUM 4.2 mmol/L (3.5-4.5)
[2023-08-25 09:11] LABS: CHOL/HDL RATIO 2.6 (<4.4); CHOLESTEROL 141 mg/dL; HDL CHOLESTEROL 54 mg/dL; LDL CHOLESTEROL,CALCULATED 75 mg/dL; LDL/HDL RATIO 1.4 (<4.4); TRIGLYCERIDES 62 mg/dL (48-352); VLDL CHOLESTEROL 12 mg/dL
[2023-08-25 09:24] LABS: THYROID STIMULATING HORMONE 1.49 uIU/mL (0.34-5.60)
== END 2023-08-25 08:35 | disposition home or self-care (01) ==
LOC: LAB 08:34
PROVIDERS: ATTEND Internal Medicine Cardiovascular Disease
DX: I48.0 Paroxysmal atrial fibrillation (principal); I42.2 Other hypertrophic cardiomyopathy; E78.5 Hyperlipidemia, unspecified
CPT/HCPCS: 36415; 80048; 80061; 83721; 84443; 85025

== ENCOUNTER 2024-02-05 10:24 | Outpatient (CLI) | payer MEDICARE ==
--- NOTE | 2024-02-06 08:16 | Mammography Report ---
BILATERAL DIGITAL SCREENING MAMMOGRAM 3D/2D WITH EXAGGERATED CC: 02/05/2024 CLINICAL: Routine screening. Comparison is made to exams dated: 01/10/2023 mammogram, 08/02/2021 mammogram, 07/15/2020 mammogram, and 05/26/2019 mammogram - [facility]. Both breasts are extremely dense, which lowers the sensitivity of mammography (category d />75% gland ular tissue). No significant masses, calcifications, or other findings are seen in either breast. There has been no significant interval change. IMPRESSION: NEGATIVE There is no mammographic evidence of malignancy. A 1 year screening mammogram is recommended. Based on the Tyrer Cuzick model (a risk assessment model) the patient's lifetime risk is 6.1% and her 10 year risk is 0.0%. According to the ACR, ACS, and NCCN guidelines, an annual breast MRI exam brian g with mammogram is recommended if the patient's lifetime risk is 20% or greater. This exam was interpreted at Station ID: [id number]. NOTE: For mammograms, a report in lay terms will be sent to the patient. Approximately 15% of breast malignancies will not be visualized mammographically. In the management of a palpable breast mass, a negative mammogram must not discourage biopsy of a clinically suspicious lesion. Electronically Signed By: Naveen neri/rose:02/05/2024 16:51:38 letter sent: No_Letter ACR BI-RADS Category 1: Negative [id number] PARENCHYMAL PATTERN: (VD) - The breast(s) demonstrate(s) extremely dense parenchyma, limiting the sen sitivity of mammography. BI-RADS CATEGORY: (1) - 1 RECOMMENDATION: (ANNUAL) - Recommend routine annual screening mammography. [id number] 1 year screening LATERALITY: (B)
== END 2024-02-05 10:25 | disposition home or self-care (01) ==
LOC: DI 10:24
DX: Z12.31 Encounter for screening mammogram for malignant neoplasm of breast (principal); R92.343 Mammographic extreme density, bilateral breasts

== ENCOUNTER 2024-03-03 08:37 | Outpatient (CLI) | payer MEDICARE ==
[2024-03-03 09:03] LABS: ALBUMIN 4.4 g/dL (3.2-5.5); ALBUMIN/GLOBULIN RATIO 1.8 (1.0-2.2); BILIRUBIN,TOTAL 0.7 mg/dL (0.2-1.0); CALCIUM 9.3 mg/dL (8.5-10.3); CREATININE 1.1 mg/dL (0.6-1.3); PHOSPHORUS 3.3 mg/dL (2.5-5.0); POTASSIUM 4.4 mmol/L (3.5-4.5); TOTAL PROTEIN 6.9 g/dL (6.4-8.9)
[2024-03-03 09:21] LABS: THYROID STIMULATING HORMONE 1.27 uIU/mL (0.34-5.60)
== END 2024-03-03 08:38 | disposition home or self-care (01) ==
LOC: LAB 08:37
PROVIDERS: ATTEND Physician Assistant
DX: R74.8 Abnormal levels of other serum enzymes (principal)
CPT/HCPCS: 36415; 80053; 82977; 84100; 84443

== ENCOUNTER 2025-02-24 07:17 | Observation (INO) ==
--- OUTSIDE RECORDS SUMMARY | 2025-02-24 07:29 | EXTERNAL MEDICAL SUMMARY RPT | Continuity of Care Document ---
Author Organization [place] Address [address] [facility] [address] [place] [id number] Phone Problems date description facility 2024-11-26 03:59 Elevated white blood cell count , [facility] 2024-[facility]-26 03:59 Mixed hyperlipidemia idbey He alth 2024-11-26 03:59 Hypo-osmolality and hyponatremi a [facility] 2024-11-26 03:59 Essential (primary) [facility]ensio n [facility] 2024-11-26 03:59 Other [facility]rophic [facility]at [facility] 2024-11-26 03:59 Longstanding persistent atrial fibrillation [facility] 2024-11-26 03:59 History of falling [employer] [facility] 2024-11-26 05:41 Elevated white blood cell count , unspecified [facility] 2024-11-26 05:41 Mixed hyperlipidemia idbey alth 2024-11-26 05:41 Hypo-osmolality and hyponatremi a [facility] 2024-11-26 05:41 Essential (primary) hypertensio n [employer] [facility] 2024-11-26 05:41 Other [facility]rophic [facility]opat [facility] 2024-11-26 05:41 Longstanding persistent atrial fibrillation [facility] 2024-11-26 05:41 [facility] in left [facility] 2024-11-26 05:41 History of falling [employer] [facility] 2024-11-26 08:38 Elevated white blood cell count , unspecified [facility] 2024-11-26 08:38 Mixed hyperlipidemia idbey He alth 2024-11-26 08:38 Hypo-osmolality and hyponatremi a [employer] [facility] 2024-11-26 08:38 Essential (primary) hypertensio n [employer] [facility] 2024-11-26 08:38 Other hypertrophic cardiomyopat [facility] 2024-11-26 08:38 Longstanding persistent atrial fibrillation [facility] 2024-11-26 08:38 History of falling [facility] 2024-11-27 23:21 Elevated white blood cell count , unspecified [facility] 2024-11-27 23:21 Mixed hyperlipidemia idrachana alth 2024-11-27 23:21 Hypo-osmolality and hyponatremi a [facility] 2024-11-27 23:21 Essential (primary) hypertensio n [facility] 2024-11-27 23:21 Other hypertrophic cardiomyopat [facility] 2024-11-27 23:21 Longstanding persistent atrial fibrillation [facility] 2024-11-27 23:21 Overactive bladder [facility] 2024-11-27 23:21 History of falling [facility] 2024-11-28 09:28 Change in bowel habit Counts include 234 beds at the [facility] 2024-12-05 12:21 Elevated white blood cell count , unspecified [facility] 2024-12-05 12:21 Mixed hyperlipidemia lorenza alth 2024-12-05 12:21 Hypo-osmolality and hyponatremi a [facility] 2024-12-05 12:21 Other chronic pain [facility] 2024-12-05 12:21 Essential (primary) hypertensio [facility] 2024-12-05 12:21 Other hypertrophic cardiomyopat [facility] 2024-12-05 12:21 Longstanding persistent atrial fibrillation [facility] 2024-12-05 12:21 Acute bronchitis, unspecified [facility] 2024-12-05 12:21 Overactive bladder [facility] 2024-12-05 12:21 Wedge compression fr acture of second thoracic vertebra, initial encounter for closed fracture [facility] 2024-12-05 12:21 History of falling [facility] 2024-12-05 12:33 Elevated white blood cell count , unspecified [facility] 2024-12-05 12:33 Mixed hyperlipidemia idrachana alth 2024-12-05 12:33 Hypo-osmolality and hyponatremi a [facility] 2024-12-05 12:33 Other chronic pain [facility] 2024-12-05 12:33 Essential (primary) hypertensio n [facility] 2024-12-05 12:33 Other hypertrophic cardiomyopat hy [facility] 2024-12-05 12:33 Longstanding persistent atrial fibrillation [facility] 2024-12-05 12:33 Acute bronchitis, unspecified [facility] 2024-12-05 12:33 Overactive bladder [facility] 2024-12-05 12:33 Wedge compression fr acture of second thoracic vertebra, initial encounter for closed fracture [facility] 2024-12-05 12:33 History of falling [facility] 2024-12-05 13:31 Elevated white blood cell count , unspecified [facility] 2024-12-05 13:31 Mixed hyperlipidemia nicbelinda [facility] 2024-12-05 13:31 Hypo-osmolality and hyponatremi [facility] 2024-12-05 13:31 Other chronic pain [facility] 2024-12-05 13:31 Essential (primary) hypertensio n [facility] 2024-12-05 13:31 Other hypertrophic cardiomyopat [facility] 2024-12-05 13:31 Longstanding persistent atrial fibrillation [facility] 2024-12-05 13:31 Acute bronchitis, unspecified [facility] 2024-12-05 13:31 Overactive bladder [facility] 2024-12-05 13:31 Wedge compression fr acture of second thoracic vertebra, initial encounter for closed fracture [facility] 2024-12-05 13:31 History of falling [facility] 2024-12-08 04:06 Elevated white blood cell count , unspecified [facility] 2024-12-08 04:06 Mixed hyperlipidemia [place] [facility] 2024-12-08 04:06 Hypo-osmolality and hyponatremi [facility] 2024-12-08 04:06 Other chronic pain [facility] 2024-12-08 04:06 Essential (primary) hypertensio n [facility] 2024-12-08 04:06 Other hypertrophic cardiomyopat [facility] 2024-12-08 04:06 Longstanding persistent atrial fibrillation [facility] 2024-12-08 04:06 Acute bronchitis, unspecified [facility] 2024-12-08 04:06 Overactive bladder [facility] 2024-12-08 04:06 Difficulty in walking, not else where classified [facility] 2024-12-08 04:06 Weakness [facility] 2024-12-08 04:06 Wedge compression fr acture of second thoracic vertebra, initial encounter for closed fracture [facility] 2024-12-08 04:06 History of falling [facility] 2024-12-10 10:13 Essential (primary) hypertensio n [employer] [facility] 2024-12-10 11:58 Hypo-osmolality and hyponatremi a [employer] [facility] 2024-12-10 11:58 Essential (primary) hypertShopSueyio n [employer] [facility] 2024-12-10 11:58 Other hypertrophic cardiomyopat [facility] 2024-12-10 11:58 Longstanding persistent atrial fibrillation [facility] 2024-12-10 11:58 Fecal urgency [facility] 2024-12-10 11:58 Full incontinence of feces [facility] [employer] 2024-12-10 11:58 Other abnormalities of gait and mobility [facility] 2024-12-10 11:58 Unspecified urinary incontinenc e [employer] [facility] 2024-12-10 11:58 Personal history of sudden card iac arrest [facility] 2024-12-11 00:02 Hypo-osmolality and hyponatremi a [employer] [facility] 2024-12-11 00:02 Essential (primary) hypertensio n [employer] [facility] 2024-12-11 00:02 Other hypertrophic cardiomyopat [facility] 2024-12-11 00:02 Longstanding persistent atrial fibrillation [employer] 2024-12-11 00:02 Fecal urgency [employer] [facility] 2024-12-11 00:02 Full incontinence of feces [employer] [facility] [employer] 2024-12-11 00:02 Other abnormalities of gait and mobility [facility] 2024-12-11 00:02 Unspecified urinary incontinenc e D [employer] K [employer] [facility] 2024-12-11 00:02 Personal history of sudden card iac arrest [facility] 2024-12-13 03:49 Anxiety disorder, unspecified [email or web address] 2024-12-13 10:31 Anxiety disorder, unspecified [facility] 2024-12-13 11:46 Anxiety disorder, unspecified [facility] 2024-12-13 14:05 Hypo-osmolality and hyponatremi a [facility] 2024-12-13 14:47 Hypo-osmolality and hyponatremi a [facility] 2024-12-15 08:08 Elevated white blood cell count , unspecified [facility] 2024-12-15 08:08 Mixed hyperlipidemia [facility] 2024-12-15 08:08 Hypo-osmolality and hyponatremi a [facility] 2024-12-15 08:08 Anxiety disorder, unspecified [facility] 2024-12-15 08:08 Other chronic pain [facility] 2024-12-15 08:08 Essential (primary) hypertensio n [facility] 2024-12-15 08:08 Other hypertrophic cardiomyopat [facility] 2024-12-15 08:08 Longstanding persistent atrial fibrillation [facility] 2024-12-15 08:08 Acute bronchitis, unspecified [employer] [facility] 2024-12-15 08:08 Pain in left shoulder Counts include 234 beds at the [facility] 2024-12-15 08:08 Overactive bladder [facility] 2024-12-15 08:08 Difficulty in walking, not else where classified [facility] 2024-12-15 08:08 Other retention of urine [facility] CenterNavmii [facility] 2024-12-15 08:08 Weakness [facility] 2024-12-15 08:08 Wedge compression fr acture of second thoracic vertebra, initial encounter for closed fracture [facility] 2024-12-15 08:08 History of falling [facility] 2024-12-15 09:35 Hypo-osmolality and hyponatremi a [facility] 2024-12-15 09:35 Essential (primary) hypertensio n [employer] [facility] 2024-12-15 09:35 Other hypertrophic cardiomyopat [facility] 2024-12-15 09:35 Longstanding persistent atrial fibrillation [facility] 2024-12-15 09:35 Other retention of urine [facility] CenterNav[facility] 2024-12-15 09:35 Wedge compression fr acture of second thoracic vertebra, initial encounter for closed fracture [facility] 2024-12-15 09:35 History of falling [employer] [facility] 2024-12-17 06:25 Anxiety disorder, unspecified [facility] 2024-12-17 06:25 Insomnia, unspecified idKueskiy [facility] 2024-12-18 11:30 Hypo-osmolality and hyponatremi a [facility] 2024-12-18 11:30 Essential (primary) hypertensio n [facility] 2024-12-18 11:30 Other hypertrophic cardiomyopat [facility] 2024-12-18 11:30 Longstanding persistent atrial fibrillation [facility] 2024-12-18 11:30 Other retention of urine [facility] 2024-12-18 11:30 Wedge compression fr acture of second thoracic vertebra, initial encounter for closed fracture [facility] 2024-12-18 11:30 History of falling [employer] [facility] 2024-12-18 11:51 Hypo-osmolality and hyponatremi a [facility] 2024-12-18 11:51 Essential (primary) hypertensio n [facility] 2024-12-18 11:51 Other hypertrophic cardiomyopat [facility] 2024-12-18 11:51 Longstanding persistent atrial fibrillation [facility] 2024-12-18 11:51 Other retention of urine [facility] 2024-12-18 11:51 Wedge compression fr acture of second thoracic vertebra, initial encounter for closed fracture [facility] 2024-12-18 11:51 History of falling [employer] [facility] 2024-12-18 15:12 Hypo-osmolality and hyponatremi a [facility] 2024-12-18 15:12 Essential (primary) hypertensio n [facility] 2024-12-18 15:12 Other hypertrophic cardiomyopat [facility] Center[facility] 2024-12-18 15:12 Longstanding persistent atrial fibrillation [facility] 2024-12-18 15:12 Other retention of urine [facility] 2024-12-18 15:12 Wedge compression fr acture of second thoracic vertebra, initial encounter for closed fracture [facility] 2024-12-18 15:12 History of falling [facility] 2024-12-19 08:13 Hypo-osmolality and hyponatremi a [facility] 2024-12-19 08:13 Essential (primary) hypertensio n [facility] 2024-12-19 08:13 Other hypertrophic cardiomyopat hy [facility] 2024-12-19 08:13 Longstanding persistent atrial fibrillation [facility] 2024-12-19 08:13 Unspecified abdominal pain [employer] [facility] [employer] 2024-12-19 08:13 Other retention of urine [facility] 2024-12-19 08:13 Retention of urine, unspecified [facility] 2024-12-19 08:13 Wedge compression fr acture of second thoracic vertebra, initial encounter for closed fracture [facility] 2024-12-19 08:13 History of falling [facility] 2024-12-24 17:29 Hypo-osmolality and hyponatremi a [employer] 2024-12-25 08:35 Hypo-osmolality and hyponatremi a [facility] 2024-12-25 08:35 Other chronic pain [facility] 2024-12-25 08:35 Essential (primary) hypertensio n [facility] 2024-12-25 08:35 Longstanding persistent atrial fibrillation [facility] 2024-12-25 08:35 Unspecified urinary incontinenc e [facility] 2024-12-26 13:08 Essential (primary) hypertensio n [employer] [facility] 2024-12-26 18:26 Hypo-osmolality and hyponatremi a D [employer] K interprises [facility] 2024-12-26 18:26 Hypokalemia [facility] 2024-12-26 18:26 Other chronic pain [facility] 2024-12-26 18:26 Essential (primary) hypertensio n [facility] 2024-12-26 18:26 Longstanding persistent atrial fibrillation [facility] 2024-12-26 18:26 Cystitis, unspecified without h ematuria [facility] 2024-12-26 18:26 Urge incontinence [facility] 2024-12-26 18:26 Unspecified urinary incontinenc e [facility] 2024-12-30 18:55 Hypo-osmolality and hyponatremi a [facility] 2024-12-30 18:55 Hypokalemia [facility] 2024-12-30 18:55 Other chronic pain [facility] 2024-12-30 18:55 Essential (primary) hypertensio n [facility] 2024-12-30 18:55 Longstanding persistent atrial fibrillation [facility] 2024-12-30 18:55 Cystitis, unspecified without h ematuria [facility] 2024-12-30 18:55 Urge incontinence [facility] 2024-12-30 18:55 Unspecified urinary incontinenc e [facility] 2024-12-30 22:44 Hypo-osmolality and hyponatremi a [facility] 2024-12-30 22:44 Hypokalemia [facility] 2024-12-30 22:44 Other chronic pain [facility] 2024-12-30 22:44 Essential (primary) hypertensio [facility] 2024-12-30 22:44 Longstanding persistent atrial fibrillation [facility] 2024-12-30 22:44 Cystitis, unspecified without h ematuria [facility] 2024-12-30 22:44 Urge incontinence [facility] 2024-12-30 22:44 Unspecified urinary incontinenc e [facility] 2024-12-31 12:07 Hypo-osmolality and hyponatremi a [facility] 2024-12-31 12:07 Hypokalemia [facility] 2024-12-31 12:07 Major depressive dis order, single episode, severe without psychotic features [facility] 2024-12-31 12:07 Other chronic pain [facility] 2024-12-31 12:07 Essential (primary) hypertensio n [facility] 2024-12-31 12:07 Longstanding persistent atrial fibrillation [facility] 2024-12-31 12:07 Cystitis, unspecified without h ematuria [facility] 2024-12-31 12:07 [facility] 2024-[facility]-31 12:07 Unspecified urinary incontinenc e [facility] 2024-12-31 12:55 Mixed hyperlipidemia [facility] 2024-12-31 12:55 Hypo-osmolality and hyponatremi a [facility] 2024-12-31 12:55 Hypokalemia [facility] 2024-12-31 12:55 Major depressive dis order, single episode, severe without psychotic features [facility] 2024-12-31 12:55 Anxiety disorder, unspecified [facility] 2024-12-31 12:55 Other chronic pain [facility] 2024-12-31 12:55 Essential (primary) hypertensio n [facility] 2024-12-31 12:55 Longstanding persistent atrial fibrillation [facility] 2024-12-31 12:55 Gastro-esophageal reflux diseas e without esophagitis [facility] 2024-12-31 12:55 Constipation, unspecified [facility] 2024-12-31 12:55 Cystitis, unspecified without h ematuria [facility] 2024-12-31 12:55 Overactive bladder [facility] 2024-12-31 12:55 Urge incontinence [facility] 2024-12-31 12:55 Unspecified urinary incontinenc e [facility] 2024-12-31 12:55 Wedge compression fr acture of second thoracic vertebra, initial encounter for closed fracture [facility] 2025-01-01 07:13 Mixed hyperlipidemia lorenza [facility] 2025-01-01 07:13 Hypo-osmolality and hyponatremi a [facility] 2025-01-01 07:13 Hypokalemia [facility] 2025-01-01 07:13 Major depressive dis order, single episode, severe without psychotic features [facility] 2025-01-01 07:13 Anxiety disorder, unspecified [facility] 2025-01-01 07:13 Other chronic pain [facility] 2025-01-01 07:13 Essential (primary) hypertensio n [facility] 2025-01-01 07:13 Longstanding persistent atrial fibrillation [facility] 2025-01-01 07:13 Gastro-esophageal reflux diseas e without esophagitis [facility] 2025-01-01 07:13 [facility] 20[facility] 07:13 Cystitis, unspecified without h ematuria [facility] 2025-01-01 07:13 Overactive bladder [facility] 2025-01-01 07:13 Urge incontinence [facility] 2025-01-01 07:13 Unspecified urinary incontinenc e [facility] 2025-01-01 07:13 Disorientation, unspecified i [facility] 2025-01-01 07:13 Wedge compression fr acture of second thoracic vertebra, initial encounter for closed fracture [facility] 2025-01-01 08:17 Mixed hyperlipidemia [facility] 2025-01-01 08:17 Hypo-osmolality and hyponatremi a [facility] 2025-01-01 08:17 Hypokalemia [facility] 2025-01-01 08:17 Major depressive dis order, single episode, severe without psychotic features [facility] 2025-01-01 08:17 Anxiety disorder, unspecified [facility] 2025-01-01 08:17 Other chronic pain [facility] 2025-01-01 08:17 Essential (primary) hypertensio n [facility] 2025-01-01 08:17 Longstanding persistent atrial fibrillation [facility] 2025-01-01 08:17 Gastro-esophageal reflux diseas e without esophagitis [facility] [facility] 2025-01-01 08:17 Constipation, unspecified idb [facility] 2025-01-01 08:17 Cystitis, unspecified without h ematuria [facility]25-[facility]-01 08:17 Overactive bladder [facility] 2025-01-01 08:17 Urge incontinence [facility] 2025-01-01 08:17 Unspecified urinary incontinenc e [facility] 2025-01-01 08:17 Disorientation, unspecified [facility] 2025-01-01 08:17 Wedge compression fr acture of second thoracic vertebra, initial encounter for closed fracture [facility] 2025-01-01 10:56 Restlessness and agitation [facility] 2025-01-08 06:39 Hypo-osmolality and hyponatremi a [facility] 2025-01-09 09:15 Mixed hyperlipidemia [facility] 2025-01-09 09:15 Hypo-osmolality and hyponatremi a [facility] 2025-01-09 09:15 Major depressive dis order, single episode, severe without psychotic features [facility] 2025-01-09 09:15 Other chronic pain [facility] 2025-01-09 09:15 Essential (primary) hypertensio n [facility] 2025-01-09 09:15 Other hypertrophic cardiomyopat [facility] 2025-01-09 09:15 Longstanding persistent atrial fibrillation [facility] 2025-01-09 09:15 Overactive bladder [facility] 2025-01-09 09:15 Fecal urgency [facility] 2025-01-09 09:15 Full incontinence of feces [facility] 2025-01-09 09:15 Other abnormalities of gait and mobility [facility] 2025-01-09 09:15 Unspecified urinary incontinenc e [facility] 2025-01-09 09:15 Frequency of micturition [facility] 2025-01-09 09:15 Fracture of neck, unspecified, subsequent encounter [facility] 2025-01-09 09:15 Wedge compression fr acture of second thoracic vertebra, initial encounter for closed fracture [facility] 2025-01-09 09:15 Personal history of sudden card iac arrest [facility] 2025-01-09 10:43 Progesterone receptor negative status [facility] 2025-01-11 15:54 Hypo-osmolality and hyponatremi a [facility] 2025-01-12 07:57 Hypo-osmolality and hyponatremi a [facility] 2025-01-15 12:19 Encounter for screening for car diovascular disorders [facility] 2025-01-15 13:25 Encounter for screening for car diovascular disorders [facility] 2025-01-19 14:25 Unspecified injury of head, ini tial encounter [facility] 2025-01-22 08:16 Hypo-osmolality and hyponatremi a [facility] 2025-01-22 12:26 Unspecified injury of head, ini tial encounter [facility] 2025-01-23 00:04 Hypo-osmolality and hyponatremi a [facility] 2025-01-27 10:44 Major depressive dis order, single episode, severe without psychotic features [facility] 2025-01-27 10:44 [facility], [facility] 2025-02-05 08:36 Cervicalgia [facility] Results/Labs test date facility value unit notes Result panel 1 MRSA PCR,CCU ADMIT 2024-11-25 19:07 [facility] NEGATIVE (missing) (missing) Result panel 2 SODIUM 2024-11-26 02:51 [facility] 117 mmol/l Critical result NA 117 mmol/L called to and read back by EDISON Calzada(CABLE INSTALLER) at 26-Nov-2024 03:15 by marlon. Result panel 3 NUCLEATED RED BLOOD CELLS AUTO 2024-11-26 06:40 [facility] 0.0 /100wbc (missing) BASOPHILS # (AUTO) 2024-11-26 06:40 [facility] 0.0 10 3/ul (missing) NRBC ABSOLUTE COUNT (AUTO) 2024-11-26 06:40 [facility] 0.00 x10 3/ul (missing) EOSINOPHILS # (AUTO) 2024-11-26 06:40 [facility] 0.1 10 3/ul (missing) MONOCYTES # (AUTO) 2024-11-26 06:40 [facility] 0.7 10 3/ul (missing) CREATININE 2024-11-26 06:40 [facility] 0.9 mg/dl As of December 2022 testing method has changed, this may include reference ranges. LYMPHOCYTES # (AUTO) 2024-11-26 06:40 [facility] 1.0 10 3/ul (missing) ANION GAP 2024-11-26 06:40 [facility] 10.0 (missing ) (missing) MEAN PLATELET VOLUME 2024-11-26 06:40 [facility] 10.4 fl (missing) WHITE BLOOD COUNT 2024-11-26 06:40 [facility] 11.0 x10 3/ul (missing) GLUCOSE 2024-11-26 06:40 [facility] 114 mg/dl As of December 2022 testing method has changed, this may include reference ranges. SODIUM 2024-11-26 06:40 [facility] 116 mmol/l Critical result NA 116 mmol/L called to and read back by FATOU Valentine RN/ICU at 26-Nov-2024 07:15 by rachel. RED CELL DISTRIBUTION WIDTH 2024-11-26 06:40 [facility] 12.2 % (missing) HGB - HEMOGLOBIN 2024-11-26 06:40 [facility] 14.3 g /dl (missing) BUN - BLOOD UREA NITROGEN 2024-11-26 06:40 [facility] 19 mg/dl As of Dec testing method has changed, this may include reference ranges. CARBON DIOXIDE - CO2 2024-11-26 06:40 [facility] 23 mmol/l As of December 2022 testing method has changed, this may include reference ranges. PLT - PLATELET COUNT 2024-11-26 06:40 [facility] 252 10 3/ul (missing) MEAN CORPUSCULAR HEMOGLOBIN 2024-11-26 06:40 [facility] 30.6 pg (missing) MEAN CORPUSCULAR HGB CONC 2024-11-26 06:40 [facility] 34.0 g/dl (missing) POTASSIUM 2024-11-26 06:40 [facility] 4.0 mmol/l As of December 2022 testing method has changed, this may include reference ranges. RED BLOOD COUNT 2024-11-26 06:40 [facility] 4.68 10 6/ul (missing) HCT - HEMATOCRIT 2024-11-26 06:40 [facility] 42.0 % (missing) GFR - MDRD 2024-11-26 06:40 [facility] 60 (missin g) Social History date description facility
[2025-02-24 07:37] LABS: HCT - HEMATOCRIT 40.1 % (37.0-47.0); HGB - HEMOGLOBIN 13.3 g/dL (12.0-16.0); MEAN PLATELET VOLUME 9.6 fL (7.9-10.8); NRBC ABSOLUTE COUNT (AUTO) 0.00 x10^3/uL; NUCLEATED RED BLOOD CELLS AUTO 0.0 /100WBC; PLT - PLATELET COUNT 485 10^3/uL (130-450); RED CELL DISTRIBUTION WIDTH 16.0 % (12.0-15.0)
--- NOTE | 2025-02-24 07:47 | ED Physician Documentation ---
History of Present Illness Stated complaint Stated Complaint: MODIFIED TRAUMA Chief complaint Chief Complaint: Trauma Hd/Nk Additonal information Additional information: Patient is an 79-year-old female with past medical history of recurrent falls, cardiomyopathy, A-fib on Eliquis, who this morning at her living facility was transferring back from the commode to the bed and when she thinks she fell. She states that she did not have any presyncopal symptoms, palpitations, chest pain or shortness of breath. She thinks that her legs gave out from underneath her. She does not know if she lost consciousness. She does not think she hit her head. Currently she is not endorsing pain anywhere apart from her left elbow. She states that she has been persistently uncomfortable for the last several weeks after she was seen here and eventually flown to [facility] due to multiple rib fractures from a previous ground-level fall. Currently she denies any chest pain, shortness of breath. She denies any abdominal pain, flank pain. Denies changes to urination or bowel movements. She denies headache or visual changes. She states that she is able to flex and extend her left elbow but notes that her left elbow seems swollen and moderately painful. Review of Systems Status of ROS: See HPI Meds/Allgy Home Medications Ambulatory Orders Medication Instructions Recorded Confirmed Permanent Disabled Placard 04/03/24 02/24/25 polyethylene glycol 3350 17 17 g PO DAILY PRN constipa tion 12/24/24 01/27/25 gram/dose oral powder (ClearLax) acetaminophen 325 mg capsule 650 mg (2 x 325 mg) PO Q6 H PRN 12/31/24 01/27/25 pain #30 caps amlodipine 2.5 mg tablet (Norvasc) 2.5 mg PO QPM #30 t abs 12/31/24 01/27/25 amlodipine 5 mg tablet 5 mg PO QPM #30 tabs 2 5 01/27/25 apixaban 5 mg tablet (Eliquis) 5 mg PO BID #60 tabs 01/27/25 atorvastatin 10 mg tablet 10 mg PO QPM #30 tabs 01/27/25 cholecalciferol (vitamin D3) 50 1,000 unit PO DAILY #3 0 caps 12/31/24 01/27/25 mcg (2,000 unit) capsule (D3-2000) ergocalciferol (vitamin D2) 1,250 1,250 mcg PO QWEEK # 30 caps 12/31/24 01/27/25 mcg (50,000 unit) capsule estradiol 0.01% (0.1 mg/gram) 1 applic vaginal .twice a week 12/31/24 02/24/25 vaginal cream #42.5 grams hydroxyzine pamoate 25 mg capsule 25 mg PO TID PRN anx iety #30 caps 12/31/24 02/24/25 [id number] 1 tab PO DAILYWM #90 tabs 0 12/31/24 01/27/25 fumarate 19 mg-folic acid 400 mcg tablet (Therapeutic-M) sodium chloride 1,000 mg soluble 1,000 mg PO DAILYWM # 30 tabs 12/31/24 01/27/25 tablet trazodone 50 mg tablet 50 mg PO QPM PRN Insomnia #3 0 tabs 12/31/24 01/27/25 vibegron 75 mg tablet (Gemtesa) 75 mg PO DAILY #30 tab s 12/31/24 01/27/25 amiodarone 200 mg tablet 100 mg PO Q24H 02/24/25 calcium 600 mg (as 1 tab PO BID 02/24/25 carbonate)-vitamin D3 5 mcg (200 unit) tablet (Calcium 600 + D(3)) diclofenac sodium 1 % topical gel 4 g topical QID 02/09 12/03 lidocaine 4 % topical patch 1 patch topical DAILY 02/09 12/03 (Lidocare) melatonin 3 mg capsule 6 mg PO DAILY 02/24/25 oxycodone 5 mg tablet 5 mg PO Q8H PRN pain 5 sennosides 8.6 mg tablet (Freda-brinda) 8.6 mg PO BID 02/09 12/03 Allergies Allergies Allergy/AdvReac Type Severity Reaction Status Date / Time atenolol Allergy Unknown Anaphylaxis Verified 02/24/25 07:18 levofloxacin Allergy Unknown Anaphylaxis Verified 02/24/25 07:18 peanut Allergy Unknown Verified 02/24/25 07:18 walnut Allergy Unknown Verified 02/24/25 07:18 adhesive AdvReac Rash Verified 02/24/25 07:18 amoxicillin trihydrate * AdvReac Hives Verified 02/24/25 07:18 (From Augmentin) lisinopril AdvReac Unknown Verified 02/24/25 07:18 potassium clavulanate * AdvReac Hives Verified 02/24/25 07:18 (From Augmentin) sulfamethoxazole (From AdvReac Hives Verified 02/24/25 07:18 Septra) trimethoprim (From Septra) AdvReac Hives Verified 02/24/25 07:18 PFSH Active Problems All Active Problems (Updated 02/24/25 @ 14:00 by Les Steve MD) Elbow pain, left (Acute) Ground-level fall (Acute) Multiple fractures of ribs of left side (Acute) Clavicle fracture, shaft (Acute) At high risk for falls after spinal surgery (Chronic) Insomnia (Chronic) Cystitis (Chronic) Hypokalemia (Chronic) Major depress dis, severe (Chronic) Constipation (Chronic) Anxiety (Chronic) Fecal incontinence (Chronic) Seborrheic keratosis (Chronic 01/24/11) Poor balance (Chronic 02/10/20) Overactive bladder (Chronic 08/11/22) Verruca (Chronic) Osteoporosis (Chronic) Medical History Medical History (Updated 02/24/25 @ 14:00 by Les Steve MD) Frequency of urination (05/05/19) Left shoulder pain History of myocardial infarction Head injury Upper back pain on left side Acute bronchiolitis Chronic pain History of pacemaker Compression fracture of T2 vertebra Closed cervical spine fracture History of recent fall Balance problem Hypertrophic cardiomyopathy Hyperlipidemia (03/22/06) Atrial fibrillation (08/09/20) HTN (hypertension) Bronchitis, acute (06/15/09) Incontinence of urine Incontinence of bowel History of fall Osteopenia (11/27/13) Visual field defect (08/12/08) Hyponatremia (08/02/22) Hx of cardiac arrest (12/21/20) Hemorrhoids, internal (11/01/11) [place]'s nodes (08/20/18) Family history of cerebral aneurysm (04/22/19) Social History Social History Smoking Status: Never smoker If you are a former smoker, when did you quit? (Date/Year): 0 Number of Years Smoked: 0 How many cigarettes a day do you smoke? (20 cigarettes=1 Pk): 0 Second hand tobacco smoke exposure: No Do you dip or chew tobacco?: No Do you vape?: No Patient requests smoking cessation consult: No Initiate information on smoking cessation: No Living arrangement: [facility] Marital Status: Support Person: Yes Level: Assisted Do you feel safe in your home environment?: Yes History of physical, verbal, emotional, or financial abuse?: No ETOH Use: None Substance Use: denies use POLST Patient has POLST: Yes Exam Exam Vital Signs: Vital Signs x48h Temp Pulse Resp BP Pulse Ox 02/24/25 14:00 81 18 152/69 H 94 02/24/25 13:37 73 18 165/79 H 94 02/24/25 12:40 75 18 146/69 H 97 02/24/25 11:40 72 18 143/64 H 96 02/24/25 10:40 85 29 H 164/78 H 02/24/25 09:00 65 18 127/65 02/24/25 08:10 71 15 136/77 H 95 02/24/25 07:18 36.6 C 78 18 161/78 H 95 Constitutional normal general appearance Resting examination bed, appears tired, no acute distress HENMT normocephalic, head/scalp atraumatic and TMs normal bilaterally Eyes Pupils 3 mm and reactive bilaterally, no conjunctival injection, no painful extraocular movements, visual arvizu intact to confrontation Neck/C-Spine visual inspection normal, trachea midline, cervical spine nontender and cervical full ROM noted Respiratory breath sounds equal bilaterally, normal respiratory effort, clear to auscultation bilaterally and no wheezes Cardiovascular Regular rate and rhythm, normal S1-S2, no murmurs. Radial pulses 2+ and symmetric. Gastrointestinal abdomen soft to palpation, nontender to palpation, nontender to percussion and nondistended Genitourinary no CVA tenderness Back/Pelvis spine normal to inspection, no thoracic spine tenderness, no lumbar spine tenderness and thoracic spine ROM normal Extremities Mild swelling, tenderness palpation of posterior left elbow. Flexion extension intact in left elbow. Otherwise atraumatic left upper extremity, neurovascularly intact throughout left upper extremity Psychiatry mental status grossly normal and oriented x3 Results Vitals Vitals: Vital Signs - 24 hr 02/24/25 07:18 02/24/25 08:10 02/24/25 09:00 Temperature 36.6 C Temperature Source Temporal Artery Scan Pulse Rate 78 71 65 Respiratory Rate 18 15 18 Blood Pressure 161/78 H 136/77 H 127/65 O2 Saturation 95 95 O2 Source Room air Room air Room air Pain Intensity 8 8 02/24/25 09:38 02/24/25 09:46 02/24/25 10:40 Temperature Temperature Source Pulse Rate 85 Respiratory Rate 29 H Blood Pressure 164/78 H O2 Saturation O2 Source Room air Pain Intensity 5 5 8 02/24/25 11:08 02/24/25 11:40 02/24/25 12:39 Temperature Temperature Source Pulse Rate 72 Respiratory Rate 18 Blood Pressure 143/64 H O2 Saturation 96 O2 Source Room air Pain Intensity 10 4 5 02/24/25 12:40 02/24/25 13:37 02/24/25 13:37 Temperature Temperature Source Pulse Rate 75 73 Respiratory Rate 18 18 Blood Pressure 146/69 H 165/79 H O2 Saturation 97 94 O2 Source Room air Room air Pain Intensity 5 5 5 02/24/25 14:00 Temperature Temperature Source Pulse Rate 81 Respiratory Rate 18 Blood Pressure 152/69 H O2 Saturation 94 O2 Source Room air Pain Intensity Oxygen O2 Source Room air Labs Labs: Laboratory Tests 02/24/25 02/24/25 02/24/25 07:20 08:16 10:55 WBC 7.0 RBC 4.25 Hgb 13.3 Hct 40.1 MCV 94.4 MCH 31.3 H MCHC 33.2 RDW 16.0 H Plt Count 485 H MPV 9.6 Neut # (Auto) 5.5 Lymph # (Auto) 0.8 L [place] # (Auto) 0.5 Eos # (Auto) 0.2 Baso # (Auto) 0.1 Absolute Nucleated RBC 0.00 Nucleated RBC % 0.0 Sodium 136 Potassium 3.2 L Chloride 104 Carbon Dioxide 22 Anion Gap 10.0 BUN 14 Creatinine 0.8 Estimated GFR (MDRD) 69 L Glucose 102 Calcium 8.5 Magnesium 2.2 Total Bilirubin 0.5 AST 19 ALT 14 Alkaline Phosphatase 67 Troponin I High Sens 33.8 H* 30.7 H* Total Protein 6.2 L Albumin 3.8 Globulin 2.4 Albumin/Globulin Ratio 1.6 PD Medical Decision Making ED course ED course: Assessment: 79-year-old female presenting with pain in her left elbow after ground-level fall at facility last night. Notably this patient was just discharge from [facility] yesterday, and was transferred to [facility]. She had been sent to [facility] at that time secondary to rib fractures on the left side involving ribs 1 through 8. Last night she fell while getting up from bed, and sustained significant pain to her left elbow. She denies pain elsewhere at this time but states that she has felt significantly uncomfortable over the last 3 weeks. DDx: Includes but is not limited to, skull fracture, traumatic subarachnoid hemorrhage, subdural hemorrhage, C-spine fracture, C-spine ligamentous injury, lumbar fracture, thoracic fracture, rib fracture, pulmonary contusion, supracondylar fracture, elbow dislocation, proximal radius fracture, proximal ulnar fracture, etc. Workup: Platelets elevated to 485, no white count. Potassium 3.2, otherwise CMP unremarkable. Initial troponin 33.8, repeat 30.7, appears somewhat similar to baseline of 20s. Extensive imaging notable for left-sided pleural effusion, chronic appearance of rib fractures. X-ray of left elbow is negative, CT of left elbow shows hematoma but no evidence of fracture. EKG per my read: Appears similar to previous, sinus rhythm, IVCD in place, normal axis, prolonged QT 467, QTc 499, inversions noted at V2, V3, V4, V5. Inversions at V4 are not in V5 are new compared to previous. No malignant ST segment changes. Treatment: Dilaudid 0.5 mg x 2 Discussion: Patient has significant pain, despite overall negative trauma eval. Have concerns about patient's ability to function at nursing facility, and think she may need more oversight due to her pain, and overall status. Discussed my concerns with patient and , who agree that admission to the hospital today for pain control, and safe discharge planning is prudent. Admitted to hospitalist service. Discharge Plan Discharge Patient Disposition: 66 [facility] DC/Xfer Condition: Stable Clinical Impression: Ground-level fall, Elbow pain, left
[2025-02-24 08:38] LABS: ALT ALANINE AMINOTRANSFERASE 14.0 IU/L (10-60); AST ASPARTATE AMINOTRANSFERASE 19.0 IU/L (10-42); BUN - BLOOD UREA NITROGEN 14.0 mg/dL (6-20); CARBON DIOXIDE - CO2 22.0 mmol/L (21-32); CREATININE 0.8 mg/dL (0.6-1.3); GFR - MDRD 69.0 (>89)
[2025-02-24 08:44] LABS: TROPONIN I HIGH SENSITIVITY 33.8 ng/L (2.3-14.8)
[2025-02-24] MEDS: ACETAMINOPHEN 500 MG TABLET PO STA (09:46)
[2025-02-24] MEDS: HYDROmorphone 0.5 MG/0.5 ML SYRINGE IVP STA ×2 (11:08→12:39)
--- NOTE | 2025-02-24 12:17 | CT Report ---
PROCEDURE: CT Thoracic Spine WO INDICATIONS: GLF, BACK PAIN TECHNIQUE: Noncontrast images acquired through the region of interest in the thoracic spine. Sagittal and coronal reformats were then constructed. For radiation dose reduction, the following was used: automated exposure control, adjustment of mA and/or kV according to patient size. COMPARISON: 02/02/2025 FINDINGS: Image quality: Excellent. Bones: There is normal overall bony alignment. No acute vertebral body compression fractures. Compressions of T2, T3, T4, and T6 are chronic. No acute compression fractures. Deformity from multiple left-sided rib fractures which were present on the previous study. No suspicious sclerotic or lytic bony lesions. Central spinal canal is of normal overall caliber. Soft tissues: No paravertebral masses or hematomas. Moderate to large left pleural effusion. IMPRESSION: 1. T2, T3, T4, and T6 compressions are chronic. No acute compressions. 2. Left chest deformity from multiple rib fractures, present on the previous study. 3. Moderate to severe left pleural effusion. Reviewed by: Elijah Saldana MD on 02/24/2025 8:31 AM PDT Approved by: Elijah Saldana MD on 02/24/2025 8:31 AM PDT Station ID: [id number]
--- NOTE | 2025-02-24 12:17 | CT Report ---
PROCEDURE: CT Cervical Spine WO INDICATIONS: glf, history of neck fusion TECHNIQUE: Noncontrast images acquired from the skull base to the T4 level. Sagittal and coronal reformats were then constructed. For radiation dose reduction, the following was used: automated exposure control, adjustment of mA and/or kV according to patient size. COMPARISON: None. FINDINGS: Image quality: Excellent. Bones: No fractures or dislocations. Posterior decompression of C2 and posterior lateral C1-C3 fusion. Cervical fusion hardware intact with no evidence of hardware failure or loosening. Mild cervical spondylosis. Visualized superior ribs are intact. Soft tissues: Prevertebral soft tissues are normal in thickness. No paravertebral hematomas. No apical pneumothoraces. Large left pleural effusion. Deformity from left rib fractures. These were present on studies of 02/02/2025. IMPRESSION: No acute, displaced fracture or traumatic subluxation. Large left pleural effusion. Reviewed by: Elijah Saldana MD on 02/24/2025 8:28 AM PDT Approved by: Elijah Saldana MD on 02/24/2025 8:28 AM PDT Station ID: [id number]
--- NOTE | 2025-02-24 12:17 | XRAY Report ---
PROCEDURE: XR Humerus LT INDICATIONS: gf, left elbow pain TECHNIQUE: 2 views of the humerus were acquired. COMPARISON: None. FINDINGS: Bones: No acute fractures or dislocations. No suspicious bony lesions. Soft tissues: No suspicious soft tissue calcifications. Nonspecific soft tissue edema. Cardiac pacemaker is seen with pulse generator in the left chest. IMPRESSION: No acute osseous abnormality. If there is clinical concern or persistent symptoms, additional imaging such as repeat radiographs or advanced imaging (e.g. CT, MRI) may be helpful for further evaluation. Reviewed by: Darrin Hernandez MD on 02/24/2025 8:39 AM PDT Approved by: Darrin Hernandez MD on 02/24/2025 8:39 AM PDT Station ID: [id number]
--- NOTE | 2025-02-24 12:17 | XRAY Report ---
PROCEDURE: XR Elbow 3+V LT INDICATIONS: glf, elbow pain TECHNIQUE: 3 views of the elbow were acquired. COMPARISON: None. FINDINGS: Bones: No acute fractures or dislocations. No suspicious bony lesions. Soft tissues: No effusion. No suspicious soft tissue calcifications. Nonspecific soft tissue edema is seen posterior to the elbow. IMPRESSION: No acute osseous abnormality. If there is clinical concern or persistent symptoms, additional imaging such as repeat radiographs or advanced imaging (e.g. CT, MRI) may be helpful for further evaluation. Reviewed by: Darrin Hernandez MD on 02/24/2025 8:37 AM PDT Approved by: Darrin Hernandez MD on 02/24/2025 8:37 AM PDT Station ID: [id number]
--- NOTE | 2025-02-24 12:17 | CT Report ---
PROCEDURE: CT Head WO INDICATIONS: glf TECHNIQUE: CT of the head was performed, without intravenous contrast. Reformats: Coronal and sagittal. For radiation dose reduction, the following was used: automated exposure control, adjustment of mA and/or kV according to patient size. COMPARISON: 02/02/2025 FINDINGS: Image quality: Diagnostic. CSF spaces: Basal cisterns are patent. No extra-axial fluid collections. Ventricles are normal in size and shape. Brain: No midline shift. No intracranial mass effect or hemorrhage. [place]- white matter interface is normal. Age appropriate volume loss and periventricular white matter hypoattenuation, likely chronic ischemic change. Skull and face: Subgaleal hematoma, left temporal region. Calvarium and visualized facial bones are intact, without suspicious lesions. Sinuses: Visualized sinuses and mastoids are clear. IMPRESSION: No acute intracranial pathology. Reviewed by: Elijah Saldana MD on 02/24/2025 8:25 AM PDT Approved by: Elijah Saldana MD on 02/24/2025 8:25 AM PDT Station ID: [id number]
--- NOTE | 2025-02-24 12:17 | CT Report ---
PROCEDURE: CT Abdomen/Pelvis W INDICATIONS: glf, trauma CONTRAST: Please see patient chart TECHNIQUE: After the administration of intravenous contrast, a CT scan of the abdomen and pelvis was performed. Images were recorded and evaluated at appropriate window settings. Reformats: coronal and sagittal. For radiation dose reduction, the following was used: automated exposure control, adjustment of mA and/or kV according to patient size. COMPARISON: Chest CT from today, CT abdomen and pelvis dated 02/02/2025 FINDINGS: Image quality: Diagnostic. Lower chest: Please see today's report from the chest. There is a left pleural effusion and left basilar atelectasis. 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 A pacemaker is in place. Liver: No solid mass. Gallbladder: Gallbladder is distended, as before, unchanged. No significant wall thickening. Biliary tree: No intrahepatic or extrahepatic dilation, accounting for age. Spleen: No splenomegaly. Pancreas: No pancreatic ductal dilation. Adrenals: No adrenal nodule. Kidneys and ureters: No hydronephrosis. No renal cystic lesion which requires follow up. No solid mass. Stomach, bowel and peritoneum: No gastric or small bowel dilation. No abnormal wall thickening. No pathologic free fluid. Lymph nodes: No central or retroperitoneal adenopathy. Vessels: No infrarenal aortic aneurysm. Patent portal vein. PELVIS Reproductive organs: Unremarkable. Bladder: No abnormal wall thickening. Pelvic lymph nodes: No pelvic adenopathy by size criteria. Bones: No aggressive osseous abnormality. Subtle sacral insufficiency fractures, previously seen as well.. Other: No significant ventral or inguinal hernia. IMPRESSION: 1. No acute process in the abdomen and pelvis. 2. Left pleural effusion, left basilar atelectasis. 3. 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 4. Bilateral sacral insufficiency fractures were present on the previous study. It is uncertain whether there is still any degree of subcuity. Reviewed by: Elijah Saldana MD on 02/24/2025 8:44 AM PDT Approved by: Elijah Saldana MD on 02/24/2025 8:44 AM PDT Station ID: [id number]
--- NOTE | 2025-02-24 12:17 | CT Report ---
PROCEDURE: CT Chest W INDICATIONS: glf/trauma CONTRAST: Please see patient chart TECHNIQUE: After the administration of intravenous contrast, a CT scan of the chest was performed. Images were recorded and evaluated at appropriate window settings. Reformats: axial MIP of the chest, coronal and sagittal. For radiation dose reduction, the following was used: automated exposure control, adjustment of mA and/or kV according to patient size. COMPARISON: None. FINDINGS: Image quality: Diagnostic. Chest wall and lower neck: No thyroid nodule which requires sonographic follow up. No breast mass. No axillary or supraclavicular adenopathy by size. Lungs and pleura: There is a moderate to severe left pleural effusion. There is compressive atelectasis on the left lower lobe. There is no airspace consolidation in either lung. Mediastinum: Heart size is mildly enlarged. 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 No pericardial effusion. AICD. No large vessel abnormality. No mediastinal adenopathy by size criteria. Bones: Again noted are fractures of the left first through eighth ribs, present on the previous study. This results in significant deformity of the lateral left chest wall. Chronic compressions of T2, T3, T4, and T6. Upper Abdomen: Unremarkable. IMPRESSION: 1. Subacute fractures of the left first through eighth ribs. This results in significant deformity of the left hemithorax. 2. Moderately large left pleural effusion. 3. Evidence of remote apical infarct of the left ventricle with wall thickening and left apical aneurysm. Multiple thoracic compressions are old. Reviewed by: Elijah Saldana MD on 02/24/2025 8:40 AM PDT Approved by: Elijah Saldana MD on 02/24/2025 8:40 AM PDT Station ID: [id number]
--- NOTE | 2025-02-24 12:17 | CT Report ---
PROCEDURE: CT Lumbar Spine WO INDICATIONS: glf TECHNIQUE: Noncontrast images acquired from the T12 level to the sacrum. Sagittal and coronal reformats were constructed. For radiation dose reduction, the following was used: automated exposure control, adjustment of mA and/or kV according to patient size. COMPARISON: Thoracic spine CT from today, lumbar spine CT from 02/02/2025 FINDINGS: Image quality: Excellent. Bones: There is normal bony alignment. No acute lumbar vertebral body compression fractures. There are bilateral sacral insufficiency fractures which in retrospect were present on the previous study. It is uncertain whether they are completely healed. There is a subtle S2 horizontal component. No suspicious lytic or blastic bony lesions. Central spinal caliber is of normal overall caliber. No pars defects. Soft tissues: No retroperitoneal masses or hematomas. Visualized aorta is normal in caliber. IMPRESSION: 1. No lumbar compression fractures. 2. No significant lumbar canal stenosis or foraminal stenosis. 3. There are bilateral sacral insufficiency fractures which were present on the previous study as well. It is uncertain whether they are completely healed. If there is a question of whether these fractures are completely healed, and they are of significant symptomatology, consider nonemergent MRI of the sacral spine. Reviewed by: Elijah Saldana MD on 02/24/2025 8:36 AM PDT Approved by: Elijah Saldana MD on 02/24/2025 8:36 AM PDT Station ID: [id number]
--- NOTE | 2025-02-24 13:44 | CT Report ---
PROCEDURE: CT Upper Extremity LT WO INDICATIONS: concern for occult elbow fracture TECHNIQUE: Noncontrast 2 mm axial sections were acquired through the elbow joint, with coronal and sagittal reformats. For radiation dose reduction, the following was used: automated exposure control, adjustment of mA and/or kV according to patient size. COMPARISON: Same day elbow and humerus radiographs FINDINGS: Image quality: Excellent. Bones: No fracture. No joint effusion. No osteochondral defect. Maintained joint spaces. Soft tissues: Subcutaneous fat edema along the posterior distal upper arm and ulnar dorsal aspect of the proximal forearm which measures greater than simple fluid density, concerning for a developing hematoma. IMPRESSION: 1. No fracture or elbow joint effusion. 2. Complex fluid density along the posterior elbow is concerning for a soft tissue hematoma. Recommend close interval follow-up to resolution. Reviewed by: Hudson Man MD on 02/24/2025 1:41 PM PDT Approved by: Hudson Man MD on 02/24/2025 1:41 PM PDT Station ID: [id number]
--- NOTE | 2025-02-24 14:02 | HISTORY & PHYSICAL EXAMINATION ---
Chief Complaint Chief Complaint Chief Complaint: Ground-level fall History of Present Illness Admitted From Admitted From:: ED History Obtained From History obtained from: Patient, and chart History of Present Illness HPI Comment/Other: Ms. Ebonie Pinto is a very pleasant 79-year-old female with unfortunate history of cervical spinal fracture in 2021 with resultant disequilibrium and balance issues since that point in time complicated by multiple subsequent falls. She recently was hospitalized at [facility] for a traumatic ground-level fall where she had multiple rib fractures and her left chest as well as a clavicular fracture. She was actually just discharged from [facility] on the day prior to this admission. Her hospitalization at [facility] was extended due to issues with disposition. She was discharged to SNF for ongoing rehabilitation. She just made it to [facility] yesterday when she had another fall from the commode last evening resulting in injury to her left elbow. She was admitted primarily for pain management and disposition planning to observation. After extensive imaging review of her elbow she does not have a fracture, but is extremely tender to palpation and is having intermittent 10 out of 10 pain. Her previous hospitalizations have been complicated by sundowning and anxiety/agitation. Furthermore in her history, she had an [id number] cardiac arrest in 2020. 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 She denies any chest pain at this time. On top of all of the above, she is quite depressed from her multiple chronic conditions and ongoing pain. She feels like she is not as active as she would be otherwise worked up for injuries and balance issues. She states several times that she wishes to , and her says that she has also stated similar things over the previous months. She denies being overtly depressed, but I did point out to her that she has multiple symptoms that she is expressing Meds/Allgy Home Medications Ambulatory Orders Medication Instructions Recorded Confirmed Permanent Disabled Placard 04/03/24 02/24/25 polyethylene glycol 3350 17 17 g PO DAILY PRN constipa tion 12/24/24 01/27/25 gram/dose oral powder (ClearLax) acetaminophen 325 mg capsule 650 mg (2 x 325 mg) PO Q6 H PRN 12/31/24 01/27/25 pain #30 caps amlodipine 2.5 mg tablet (Norvasc) 2.5 mg PO QPM #30 t abs 12/31/24 01/27/25 amlodipine 5 mg tablet 5 mg PO QPM #30 tabs 5 01/27/25 apixaban 5 mg tablet (Eliquis) 5 mg PO BID #60 tabs 01/27/25 atorvastatin 10 mg tablet 10 mg PO QPM #30 tabs 01/27/25 cholecalciferol (vitamin D3) 50 1,000 unit PO DAILY #3 0 caps 12/31/24 01/27/25 mcg (2,000 unit) capsule (D3-2000) ergocalciferol (vitamin D2) 1,250 1,250 mcg PO QWEEK # 30 caps 12/31/24 01/27/25 mcg (50,000 unit) capsule estradiol 0.01% (0.1 mg/gram) 1 applic vaginal .twice a week 12/31/24 02/24/25 vaginal cream #42.5 grams hydroxyzine pamoate 25 mg capsule 25 mg PO TID PRN anx iety #30 caps 12/31/24 02/24/25 [id number]-mfuajwnr-vcvl 1 tab PO DAILYWM #90 tabs 0 12/31/24 01/27/25 fumarate 19 mg-folic acid 400 mcg tablet (Therapeutic-M) sodium chloride 1,000 mg soluble 1,000 mg PO DAILYWM # 30 tabs 12/31/24 01/27/25 tablet trazodone 50 mg tablet 50 mg PO QPM PRN Insomnia #3 0 tabs 12/31/24 01/27/25 vibegron 75 mg tablet (Gemtesa) 75 mg PO DAILY #30 tab s 12/31/24 01/27/25 amiodarone 200 mg tablet 100 mg PO Q24H 02/24/25 calcium 600 mg (as 1 tab PO BID 02/24/25 carbonate)-vitamin D3 5 mcg (200 unit) tablet (Calcium 600 + D(3)) diclofenac sodium 1 % topical gel 4 g topical QID 02/09 12/03 lidocaine 4 % topical patch 1 patch topical DAILY 02/09 12/03 (Lidocare) melatonin 3 mg capsule 6 mg PO DAILY 02/24/25 oxycodone 5 mg tablet 5 mg PO Q8H PRN pain 5 sennosides 8.6 mg tablet (Freda-brinda) 8.6 mg PO BID 02/09 12/03 Allergies Allergies Allergy/AdvReac Type Severity Reaction Status Date / Time atenolol Allergy Unknown Anaphylaxis Verified 02/24/25 07:18 levofloxacin Allergy Unknown Anaphylaxis Verified 02/24/25 07:18 peanut Allergy Unknown Verified 02/24/25 07:18 walnut Allergy Unknown Verified 02/24/25 07:18 adhesive AdvReac Rash Verified 02/24/25 07:18 amoxicillin trihydrate * AdvReac Hives Verified 02/24/25 07:18 (From Augmentin) lisinopril AdvReac Unknown Verified 02/24/25 07:18 potassium clavulanate * AdvReac Hives Verified 02/24/25 07:18 (From Augmentin) sulfamethoxazole (From AdvReac Hives Verified 02/24/25 07:18 Septra) trimethoprim (From Septra) AdvReac Hives Verified 02/24/25 07:18 PFSH Active Problems All Active Problems (Updated 02/24/25 @ 16:47 by Abundio Butterfield DO) Elbow pain, left (Acute) Ground-level fall (Acute) Multiple fractures of ribs of left side (Acute) Clavicle fracture, shaft (Acute) At high risk for falls after spinal surgery (Chronic) Insomnia (Chronic) Cystitis (Chronic) Hypokalemia (Chronic) Major depress dis, severe (Chronic) Constipation (Chronic) Anxiety (Chronic) Fecal incontinence (Chronic) Seborrheic keratosis (Chronic 01/24/11) Poor balance (Chronic 02/10/20) Overactive bladder (Chronic 08/11/22) Verruca (Chronic) Osteoporosis (Chronic) Medical History Medical History (Updated 02/24/25 @ 16:47 by Abundio Butterfield DO) Frequency of urination (05/05/19) Left shoulder pain History of myocardial infarction Head injury Upper back pain on left side Acute bronchiolitis Chronic pain History of pacemaker Compression fracture of T2 vertebra Closed cervical spine fracture History of recent fall Balance problem Hypertrophic cardiomyopathy Hyperlipidemia (03/22/06) Atrial fibrillation (08/09/20) HTN (hypertension) Bronchitis, acute (06/15/09) Incontinence of urine Incontinence of bowel History of fall Osteopenia (11/27/13) Visual field defect (08/12/08) Hyponatremia (08/02/22) Hx of cardiac arrest (12/21/20) Hemorrhoids, internal (11/01/11) Heberden's nodes (08/20/18) Family history of cerebral aneurysm (04/22/19) Social History Social History Smoking Status: Never smoker If you are a former smoker, when did you quit? (Date/Year): 0 Number of Years Smoked: 0 How many cigarettes a day do you smoke? (20 cigarettes=1 Pk): 0 Second hand tobacco smoke exposure: No Do you dip or chew tobacco?: No Do you vape?: No Patient requests smoking cessation consult: No Initiate information on smoking cessation: No Living arrangement: prison Marital Status: Support Person: Yes Level: Assisted Home Mobility Equipment: Walker Do you feel safe in your home environment?: Yes History of physical, verbal, emotional, or financial abuse?: No ETOH Use: None Substance Use: denies use POLST Patient has POLST: Yes Exam Exam Vital Signs: Vital Signs x48h Temp Pulse Pulse Resp BP BP Pulse Ox 02/24/25 16:15 37.0 C 71 16 139/71 H 95 02/24/25 14:54 36.5 C 85 16 140/80 H 95 02/24/25 14:00 81 18 152/69 H 94 02/24/25 13:37 73 18 165/79 H 94 02/24/25 12:40 75 18 146/69 H 97 02/24/25 11:40 72 18 143/64 H 96 02/24/25 10:40 85 29 H 164/78 H 02/24/25 09:00 65 18 127/65 GEN: No acute distress, somnolent. HEENT: NC/AT, normal appearance of external ears and nose. Hearing baseline. Cardiac: Regular rate and rhythm. Systolic ejection murmur at right upper sternal border. Pulm: Lungs CTA bilaterally, no cough, no wheezes Abdomen: Soft, nontender, nondistended. No rebound or guarding Extremities: Moves all 4 extremities. Ecchymosis throughout bilateral extremities. Warmth and swelling in the left elbow. Neuro: Face symmetric, CN II through XII intact grossly. Gait exam deferred Psych: Mood depressed, affect flattened, tearful. Conclusion/Plan Problem List (1) Elbow pain, left: Plan: Extensive imaging on admission. No fracture present. She does have a hematoma. Resulting from a ground-level fall as below. Will start on multimodal pain relief. * Scheduled Tylenol 1 g 3 times daily * Topical diclofenac * Topical lidocaine patch * Heating pads * As needed narcotics available for breakthrough pain (2) Ground-level fall: Plan: History of recurrent falls going back to the time of her spinal surgery in 2021. Recently hospitalized for an extended period at [facility] for a ground-level fall resulted in multiple left-sided rib fractures and clavicular fracture. She has balance issues and has tried multiple therapies to help with her disequilibrium, but has been unsuccessful despite working with multiple specialist. She is on salt tabs to help treat for orthostatic hypotension. * Continue salt tabs * Therapies to evaluate for dispo planning, suspect SNF. * Patient is amenable to return to [facility] * Orthostatic vital signs (3) Multiple fractures of ribs of left side: Plan: From fall at end of January. Recently discharged from [facility] on 02/23. Healing appropriately. Pain well-controlled. Qualifiers: Encounter type: subsequent encounter Fracture type: closed Fracture healing: with routine healing Qualified Code(s): S22.42XD - Multiple fractures of ribs, left side, subsequent encounter for fracture with routine healing (4) Clavicle fracture, shaft: Plan: From fall at end of January. Recently discharged from [facility] 02/23. Healing appropriately. (5) Major depress dis, severe: Plan: Patient is depressed with an anxious affect as well. She is quite worried that she will never get better from her balance perspective and does not like the quality of life that she has right now. When extensive conversation about this with her family at bedside, they agree that she has felt this way for some time. She denies any acute complaints or having ever made any plans aside from exploring DWD with her primary care provider. She has been told that since she does not have a terminal diagnosis, she does not qualify for DWD. She endorses anhedonia, hopelessness, passive suicidal ideation, sleep disturbance, appetite changes, concentration issues and psychomotor retardation. * Will start with Vistaril as needed for now * Discussed with patient, she denies a diagnosis of depression * Continue recommend starting on antidepressant, likely sertraline versus duloxetine which may have some duel effect for neuropathic pain. (6) Atrial fibrillation: Plan: Status post PPM and ICD. 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 Not in RVR. * Continue anticoagulation and amiodarone Qualifiers: Atrial fibrillation type: longstanding persistent Qualified Code(s): I 48.11 - Longstanding persistent atrial fibrillation (7) Overactive bladder: Plan: Patient has a longstanding history of overactive bladder. Per her and her family's report, she was urinating up to every 45 minutes at 1 point in time. She has tried multiple therapies and worked with urology here over the preceding months without much success. She has consultation with urology in March. 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
[2025-02-24] MEDS ORDERED: ONDANSETRON 4 MG/2 ML VIAL IVP PRN (15:22)
[2025-02-24] MEDS ORDERED: ONDANSETRON ODT 4 MG TABLET TL PRN (15:22)
[2025-02-24] MEDS: ACETAMINOPHEN 500 MG TABLET PO SCH (16:27)
[2025-02-24] MEDS: AMIODARONE 200 MG TABLET PO SCH (16:27)
[2025-02-24] MEDS: DICLOFENAC SODIUM 1% GEL 50 GM TUBE TOP SCH (16:45)
[2025-02-24] MEDS: HYDROmorphone 0.5 MG/0.5 ML SYRINGE IVP PRN (16:45)
[2025-02-24 17:57] LABS: KETONES,URINE (UA) 40 mg/dL (NEGATIVE); OCCULT BLOOD,URINE TRACE-INTACT (NEGATIVE)
[2025-02-24 17:58] LABS: GLUCOSE, URINE (UA) NEGATIVE (NEGATIVE)
[2025-02-24 18:06] LABS: SQUAMOUS EPITHELIAL CELL,UR FEW Squamous (<= Few)
[2025-02-24] MEDS: SODIUM CHLORIDE FLUSH 0.9% 10 ML SYRINGE IVP SCH (18:59)
[2025-02-24] MEDS: oxyCODONE 5 MG TABLET PO PRN (20:02)
[2025-02-24] MEDS: APIXABAN 5 MG TABLET PO SCH (20:03)
[2025-02-24] MEDS: ATORVASTATIN 10 MG TABLET PO SCH (20:03)
[2025-02-24] MEDS: MELATONIN 3 MG TABLET PO PRN (20:03)
[2025-02-24] MEDS ORDERED: [UNRECOGNIZED DRUG - OTHER] PO SCH (21:00)
[2025-02-24] MEDS ORDERED: CALCIUM CARBONATE VITAMIN D3 PO SCH (21:00)
[2025-02-25] MEDS: SODIUM CHLORIDE FLUSH 0.9% 10 ML SYRINGE IVP PRN (06:36)
--- NOTE | 2025-02-25 08:08 | PROVIDER PROGRESS NOTE ---
Subjective Prog Note Date Prog Note Date: 02/25/25 Prog Note Time: 08:06 Subjective Pt reports feeling: No change Subjective: Patient continues to endorse pain in her left arm today. Despite multiple interventions, she says her pain is 9-10 out of 10. She struggled to get her hypnotics last night due to the manner the order was written. Overall anxiety seems better managed today. She is still having issues with pain. She did not find any particular effect from Tylenol, lidocaine, diclofenac. Found that ice helped somewhat. Denies any fevers or chills. Denies any lightheadedness or presyncopal symptoms. Apparently had sera positive orthostatic vital signs JOB SPOTTER. SBP dropped by more than 30 points. No increase in her heart rate. She was unstable on her feet when working with PT. PT currently recommending SNF. Diet: General VTE PPx: DOAC Dispo: SNF, med ready now Code Status: DNR/DNI Current Medications Current Medications Current Medications: Current Medications Generic Name Dose Route Start Last Admin Trade Name Poppy PRN Reason Stop Dose Admin Acetaminophen 1,000 mg 02/24/25 16:00 02/25/25 07:43 Acetaminophen 500 Mg Tablet PO 1,000 mg Q8H TORIN Administration Amiodarone HCl 100 mg 02/24/25 16:00 02/24/25 16:27 Amiodarone 200 Mg Tablet PO 100 mg Q24H TORIN Administration Amlodipine Besylate 7.5 mg 02/24/25 21:00 02/24/25 20:04 Amlodipine 5 Mg Tablet PO 7.5 mg QPM TORIN Administration Apixaban 5 mg 02/24/25 21:00 02/24/25 20:03 Apixaban 5 Mg Tablet PO 5 mg BID TORIN Administration Atorvastatin Calcium 10 mg 02/24/25 21:00 02/24/25 20:03 Atorvastatin 10 Mg Tablet PO 10 mg QPM TORIN Administration Cholecalciferol 12.5 mcg 02/25/25 09:00 Cholecalciferol 25 Mcg Tablet PO DAILY TORIN Diclofenac Sodium 4 gm 02/24/25 17:00 02/24/25 20:57 Diclofenac Sodium 1% Gel 50 Gm Tube TOP Not Given QID TORIN Hydromorphone HCl 0.5 mg 02/24/25 15:22 02/25/25 06:37 Hydromorphone 0.5 Mg/0.5 Ml Syringe IVP 0.5 mg Q2H PRN Administration Pain 8 to 10 Hydroxyzine Pamoate 25 mg 02/24/25 15:53 02/24/25 20:02 Hydroxyzine Pamoate 25 Mg Capsule PO 25 mg TID PRN Administration Anxiety Lidocaine 1 patch 02/25/25 09:00 Lidocaine Patch 4% TOP DAILY TORIN Melatonin 3 mg 02/24/25 21:00 02/24/25 20:03 Melatonin 3 Mg Tablet PO 3 mg QPM PRN Administration INSOM Ondansetron HCl 4 mg 02/24/25 15:22 Ondansetron Odt 4 Mg Tablet TL Q6HR PRN Nausea / Vomiting Ondansetron HCl 4 mg 02/24/25 15:22 Ondansetron 4 Mg/2 Ml Vial IVP Q6HR PRN Nausea / Vomiting Oxycodone HCl 5 mg 02/24/25 15:22 02/25/25 05:07 Oxycodone 5 Mg Tablet PO 5 mg Q4HR PRN Administration Pain Patient Own Med ( 1 each 02/25/25 09:00 Vibegron [Gemtesa] PO 75 Mg Tablet) DAILY TORIN Polyethylene Glycol 17 gm 02/25/25 09:00 Polyethylene Glycol 3350 17 Gm Packet PO DAILY TORIN Sodium Chloride 10 ml 02/24/25 15:22 02/25/25 06:36 Sodium Chloride Flush 0.9% 10 Ml Syringe IVP 10 ml PRN PRN Administration NEEDED PER PROVIDER ORDERS Sodium Chloride 10 ml 02/24/25 17:00 02/25/25 00:39 Sodium Chloride Flush 0.9% 10 Ml Syringe IVP 10 ml 0100,0900,1700 TORIN Administration Sodium Chloride 1 gm 02/25/25 08:00 Sodium Chloride 1 Gm Tablet PO DAILYWM TORIN Trazodone HCl 50 mg 02/24/25 15:58 02/24/25 20:03 Trazodone 50 Mg Tablet PO 50 mg QPM PRN Administration Insomnia Objective Vital Signs/Intake & Output Vital Signs: Vital Signs x48h Temp Pulse Resp BP BP Pulse Ox 02/25/25 07:50 36.7 C 77 20 160/75 H 93 02/25/25 04:17 36.8 C 73 18 140/60 H 96 02/25/25 00:27 36.7 C 75 18 148/61 H 95 Intake & Output: Intake & Output 02/22/25 02/23/25 02/24/25 02/25/25 23:59 23:59 23:59 23:59 Intake Total 370 / 370 Output Total 250 / 250 300 / 300 Balance 120 / 120 -300 / -300 Weight (kg) 47.5 kg Objective Comments/Other: GEN: No acute distress HEENT: NC/AT, normal appearance of external ears and nose. Hearing baseline. Cardiac: Regular rate and rhythm. Systolic ejection murmur right upper sternal border Pulm: Lungs CTA bilaterally, no cough, no wheezes Abdomen: Soft, nontender, nondistended. No rebound or guarding Extremities: Moves all 4 extremities. Ecchymosis throughout bilateral extremities. Warmth and swelling in the left elbow. Neuro: Face symmetric, CN II through XII intact grossly. Gait exam deferred Psych: Mood euthymic. Affect congruent. Frustrated. Lab Results 02/24/25 07:20 02/24/25 08:16 Other Labs: Lab Results x24hrs 02/24/25 02/24/25 02/24/25 Range/Units 17:37 10:55 08:16 Sodium 136 (135-145) mmol/L Potassium 3.2 L (3.5-4.5) mmol/L Chloride 104 (101-111) mmol/L Carbon Dioxide 22 (21-32) mmol/L Anion Gap 10.0 (6-13) BUN 14 (6-20) mg/dL Creatinine 0.8 (0.6-1.3) mg/dL Estimated GFR (MDRD) 69 L (>89) Glucose 102 (74-104) mg/dL Calcium 8.5 (8.5-10.3) mg/dL Magnesium 2.2 (1.7-2.3) mg/dL Total Bilirubin 0.5 (0.2-1.0) mg/dL AST 19 (10-42) IU/L ALT 14 (10-60) IU/L Alkaline Phosphatase 67 (42-121) IU/L Troponin I High Sens 30.7 H* 33.8 H* (2.3-14.8) ng/L Total Protein 6.2 L (6.4-8.9) g/dL Albumin 3.8 (3.2-5.5) g/dL Globulin 2.4 (2.1-4.2) g/dL Albumin/Globulin Ratio 1.6 (1.0-2.2) Urine Color YELLOW Urine Clarity CLEAR (CLEAR) Urine pH 5.0 (5.0-7.5) PH Ur Specific [place] 1.005 (1.002-1.030) Urine Protein NEGATIVE (NEGATIVE) mg/dL Urine Glucose (UA) NEGATIVE (NEGATIVE) mg/dL Urine Ketones 40 H (NEGATIVE) mg/dL Urine Occult Blood TRACE-INTACT (NEGATIVE) Urine Nitrite NEGATIVE (NEGATIVE) Urine Bilirubin NEGATIVE (NEGATIVE) Urine Urobilinogen 0.2 (NORMAL) (NORMAL) E.U./dL Ur Leukocyte Esterase NEGATIVE (NEGATIVE) Urine RBC 0-5 (0-5) /HPF Urine WBC 0-3 (0-5) /HPF Ur Squamous Epith Cells FEW Squamous (<= Few) Urine Bacteria Few (None Seen) /HPF Assessment/Plan Problem List (1) Elbow pain, left: Impression: Stable. Does not find much improvement from Tylenol, lidocaine patch, or diclofenac. She does not feel that she needs opiates at this time. Ice and heat have been helping at times. Extensive imaging on admission. No fracture present. She does have a hematoma. Resulting from a ground-level fall as below. She has been started on multimodal pain relief here. * Scheduled Tylenol 1 g 3 times daily * Topical diclofenac * Topical lidocaine patch * Heating pads * As needed narcotics available for breakthrough pain (2) Ground-level fall: Impression: Stable, unchanged. Likely secondary to orthostatic hypotension in the setting of her previous spinal surgery with the neuropathic component. She has worked with multiple specialist in the past. She continues to exhibit orthostatic hypotension here while working with PT. She is on salt tabs. History of recurrent falls going back to the time of her spinal surgery in 2021. Recently hospitalized for an extended period at [facility] for a ground-level fall resulted in multiple left-sided rib fractures and clavicular fracture. She has balance issues and has tried multiple therapies to help with her disequilibrium, but has been unsuccessful despite working with multiple specialist. * Continue JOB SPOTTER salt tabs * Therapies Recommending SNF * Patient likely to return to [facility], pending insurance authorization (3) Multiple fractures of ribs of left side: Impression: Stable without any new concern. From fall at end of January. Recently discharged from [facility] on 02/23. Healing appropriately. Pain well-controlled. Qualifiers: Encounter type: subsequent encounter Fracture healing: with routine healing Fracture type: closed Qualified Code(s): S22.42XD - Multiple fractures of ribs, left side, subsequent encounter for fracture with routine healing (4) Clavicle fracture, shaft: Impression: Stable without any new concern. The patient feels like she should limit her use of her left arm, however with normal healing, she should be at least at light duty with her left arm. No longer in a sling. Can advance to full use of her left arm by 6 weeks, tentatively end of February. (5) Major depress dis, severe: Impression: Persistent, stable. Patient continues to exhibit signs of depression. She is quite anxious but becoming more frustrated with her care. She has stated multiple times that she is ready to . On admission her had an extensive conversation with her family at bedside, and they agree that she has felt this way for some time. She is not actively suicidal. She does report that she has previously attempted to explore DWD with her primary care provider but she does not have a terminal diagnosis. Symptoms include anhedonia, hopelessness, passive suicidal ideation, sleep disturbance, appetite changes and concentration issues. * Vistaril as needed * Would avoid starting on benzodiazepine with concomitant opioid use. * Continue recommend starting on antidepressant, patient is precontemplative right now. (6) Overactive bladder: Impression: STABLE, unchanged Patient continues to endorse that she has urinary frequency. She is perseverant that she cannot get better with her frequent urination. Patient has a longstanding history of overactive bladder. Per her and her family's report, she was urinating up to every 45 minutes at 1 point in time. She has tried multiple therapies and worked with urology here over the preceding months without much success. She has consultation with urology in March. * Continue JOB SPOTTER Gemtesa * Patient will need close nursing supervision to get up to the commode as she cannot urinate while supine even with a pure wick or bedpan
[2025-02-25] MEDS: SODIUM CHLORIDE 1 GM TABLET PO SCH (08:47)
[2025-02-25] MEDS: CHOLECALCIFEROL 25 MCG TABLET PO SCH (08:47)
[2025-02-25] MEDS: VIBEGRON 75 MG PO SCH (08:48)
--- NOTE | 2025-02-25 12:59 | PT Plan of Care ---
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 02/23 or 02/24 Medical History (Updated 02/24/25 @ 16:47 by Abundio Butterfield, DO) Frequency of urination (05/05/19) Left shoulder pain History of myocardial infarction Head injury Upper back pain on left side Acute bronchiolitis Chronic pain History of pacemaker Compression fracture of T2 vertebra Closed cervical spine fracture History of recent fall Balance problem Hypertrophic cardiomyopathy Hyperlipidemia (03/22/06) Atrial fibrillation (08/09/20) HTN (hypertension) Bronchitis, acute (06/15/09) Incontinence of urine Incontinence of bowel History of fall Osteopenia (11/27/13) Visual field defect (08/12/08) Hyponatremia (08/02/22) Hx of cardiac arrest (12/21/20) Hemorrhoids, internal (11/01/11) Heberden's nodes (08/20/18) Family history of cerebral aneurysm (04/22/19) Balance/ Functional Results Sitting Balance Good Standing Balance Fair Tinetti Assessment High Fall Risk Interpretation Assessment Assessment Pt is an 79yo F referred for PT eval s/p GLF with acute L elbow injury. Imaging negative for fx, positive for hematoma. Of note, pt is known to this PT having been seen in previous hospitalizations. Since last acute eval at this facility, pt was hospitalized approx. 3wks at [facility] for treatment of polytrauma primarily effecting L side of body. Please see medical record for details of PMH. Pts present in room during eval and provides some history details as needed. Cleared for eval by hospitalist. Upon PT eval, met supine in bed vitals WNL and pt reports minimal pain at rest, agreeable to participate. Pt transfers to EOB with minAx1 overall, and STS with FWW and modAx1 . Positive orthostatics with 36 point systolic drop and pt reports feeling off balance when standing. After seated rest, symptoms reduce and pt able to transfer to b/s chair with modAx1. Pt is cueable and agreeable but demonstrates moderate impulsivity requiring multimodal cueing for safety. She is a high fall risk given her history, injuries, low vision, urinary urgency and unclear neuromotor presentation. PT advised minAx2 for transfers with nsg d/t presence of multiple healing fxs and pt impulsivity. Given significance of injuries along with impairments in strength, balance and functional indep, pt will benefit from skilled PT in acute setting to progress upright tolerance, endurance, and mobility. When medically clear, PT rec dc to SNF for continued rehab. Goals Improve bed mobility to: Contact Guard Improve supine to sit to: Contact Guard Improve sit to stand to: Minimal Assist Improve pivot transfer ability Minimal Assist to: Improve sit to supine to: Contact Guard Improve gait ability to: Min A Assistive Device Used: Front Wheeled Walker,Quad Cane Other gait goal: if FWW too difficult to turn, QC or hemiwalker used in R hand will be trialed Improve Sitting Balance to: Fair Improve Standing Balance to: Fair PT Plan of Care Frequency 1-2x/day Duration Until discharge Discharge Recommendations Discharge Location Nursing Home Facility Support/Services Needed With assist Other TBD Transport Needs at Discharge B.L.S Other BLS d/t polytrauma, fx's, poor trunk control
--- NOTE | 2025-02-25 16:23 | PHARMACY PROGRESS NOTE ---
Best Possible Medication History Admit Date and Time: 02/24/25 [id number] Home Medications Medication Instructions Recorded Confirmed Type Permanent Disabled Placard 04/03/24 02/24/25 History polyethylene glycol 3350 17 17 g PO DAILY PRN constipa tion 12/24/24 02/25/25 History gram/dose oral powder (ClearLax) acetaminophen 325 mg capsule 650 mg (2 x 325 mg) PO Q6 H PRN 12/31/24 02/25/25 Rx pain #30 caps apixaban 5 mg tablet (Eliquis) 5 mg PO BID #60 tabs 02/25/25 Rx atorvastatin 10 mg tablet 10 mg PO QPM #30 tabs 02/25/25 Rx cholecalciferol (vitamin D3) 50 1,000 unit PO DAILY #3 0 caps 12/31/24 02/25/25 Rx mcg (2,000 unit) capsule (D3-2000) [id number] 1 tab PO DAILYWM #90 tabs 0 12/31/24 02/25/25 Rx fumarate 19 mg-folic acid 400 mcg tablet (Therapeutic-M) trazodone 50 mg tablet 50 mg PO QPM PRN Insomnia #3 0 tabs 12/31/24 02/25/25 Rx vibegron 75 mg tablet (Gemtesa) 75 mg PO DAILY #30 tab s 12/31/24 02/25/25 Rx calcium 600 mg (as 1 tab PO BID 02/24/25 History carbonate)-vitamin D3 5 mcg (200 unit) tablet (Calcium 600 + D(3)) diclofenac sodium 1 % topical gel 4 g topical QID 02/0902/25/25 History lidocaine 4 % topical patch 1 patch topical DAILY 02/0902/25/25 History (Lidocare) melatonin 3 mg capsule 6 mg PO DAILY 02/24/2502/25 History oxycodone 5 mg tablet 5 mg PO Q8H PRN pain 5 02/25/25 History sennosides 8.6 mg tablet (Freda-brinda) 17.2 mg PO ONCE WV N constipation 02/24/25 02/25/25 History amiodarone 100 mg tablet 50 mg PO DAILY 02/25/2502/09 History amlodipine 2.5 mg tablet (Norvasc) 2.5 mg PO QPM 02/2502/25/25 History amlodipine 5 mg tablet 5 mg PO QPM 02/25/25 5 History bisacodyl 10 mg rectal suppository 10 mg W[place] DAILY PRN constipation 02/25/25 02/25/25 History (Dulcolax (bisacodyl)) ergocalciferol (vitamin D2) 1,250 1,250 mcg PO QWEEK 0 02/25/25 02/25/25 History mcg (50,000 unit) capsule mineral oil (Fleet Mineral Oil 118 ml [place] DAILY PRN con stipation 02/25/25 02/25/25 History enema) naloxone 4 mg/actuation nasal 4 mg intranasal Q2M 02/0902/25/25 History spray (Narcan) polyethylene glycol 3350 17 17 g PO QAM 02/25/2502/25 History gram/dose oral powder (ClearLax) sennosides 8.6 mg tablet 8.6 mg PO DAILY 02/25/25 History sodium chloride 1,000 mg soluble 1,000 mg PO BID 02/2502/25/25 History tablet Processed by: Pharmacy Medications reviewed in ED?: Yes Medication History completed: Yes Patient Interview: Completed Secondary Source(s): Facility MAR as ONLY source [facility] Statement: As the person ultimately responsible for medication therapy, providers are able to order a medication from an existing home medication list in [facility] via the "Reconcile Routine" prior to Confirmation of that medication by family support coordinator. Such practice is discouraged except when the physician, in their clinical judgment, deems that a medical need exists for a medication without regard to previous use.
[2025-02-25] MEDS: MELATONIN 3 MG TABLET PO SCH (17:31)
[2025-02-25] MEDS: MIRTAZAPINE 15 MG TABLET PO SCH (20:31)
--- NOTE | 2025-02-26 07:40 | PROVIDER PROGRESS NOTE ---
Subjective Prog Note Date Prog Note Date: 02/26/25 Prog Note Time: 07:38 Subjective Pt reports feeling: No change Subjective: Doing about the same today. Pain continues to be reasonably managed that the patient still endorses high level of pain. She is not extremis on exam. Frequent urination over the last day. This is consistent with her story of overactive and/or neurogenicbladder. She continues on her home medicines. No real indication for Wiggins at this time. Started on Remeron yesterday with hopes of both treating her poor appetite, poor sleep, and mood. No real changes to date. Plan to discharge to SNF, likely back to [facility]. Pending insurance authorization. Diet: General VTE PPx: DOAC Dispo: SNF, med ready now Code Status: DNR/DNI Current Medications Current Medications Current Medications: Current Medications Generic Name Dose Route Start Last Admin Trade Name Freq PRN Reason Stop Dose Admin Acetaminophen 1,000 mg 02/24/25 16:00 02/25/25 23:46 Acetaminophen 500 Mg Tablet PO 1,000 mg Q8H TORIN Administration Amiodarone HCl 100 mg 02/24/25 16:00 02/25/25 15:59 Amiodarone 200 Mg Tablet PO 100 mg Q24H TORIN Administration Amlodipine Besylate 7.5 mg 02/24/25 21:00 02/25/25 20:31 Amlodipine 5 Mg Tablet PO 7.5 mg QPM TORIN Administration Apixaban 5 mg 02/24/25 21:00 02/25/25 20:30 Apixaban 5 Mg Tablet PO 5 mg BID TORIN Administration Atorvastatin Calcium 10 mg 02/24/25 21:00 02/25/25 20:31 Atorvastatin 10 Mg Tablet PO 10 mg QPM TORIN Administration Cholecalciferol 12.5 mcg 02/25/25 09:00 02/25/25 08:47 Cholecalciferol 25 Mcg Tablet PO 12.5 mcg DAILY TORIN Administration Diclofenac Sodium 4 gm 02/24/25 17:00 02/25/25 20:31 Diclofenac Sodium 1% Gel 50 Gm Tube TOP 4 gm QID TORIN Administration Hydromorphone HCl 0.5 mg 02/24/25 15:22 02/25/25 06:37 Hydromorphone 0.5 Mg/0.5 Ml Syringe IVP 0.5 mg Q2H PRN Administration Pain 8 to 10 Hydroxyzine Pamoate 25 mg 02/24/25 15:53 02/25/25 19:25 Hydroxyzine Pamoate 25 Mg Capsule PO 25 mg TID PRN Administration Anxiety Lidocaine 1 patch 02/25/25 09:00 02/25/25 08:45 Lidocaine Patch 4% TOP 1 patch DAILY TORIN Administration Melatonin 3 mg 02/25/25 17:00 02/25/25 17:31 Melatonin 3 Mg Tablet PO 3 mg QDDINNER TORIN Administration Mirtazapine 15 mg 02/25/25 21:00 02/25/25 20:31 Mirtazapine 15 Mg Tablet PO 15 mg QPM TORIN Administration Ondansetron HCl 4 mg 02/24/25 15:22 Ondansetron Odt 4 Mg Tablet TL Q6HR PRN Nausea / Vomiting Ondansetron HCl 4 mg 02/24/25 15:22 Ondansetron 4 Mg/2 Ml Vial IVP Q6HR PRN Nausea / Vomiting Oxycodone HCl 5 mg 02/24/25 15:22 02/25/25 19:27 Oxycodone 5 Mg Tablet PO 5 mg Q4HR PRN Administration Pain Vibegron [Gemtesa] 1 each 02/25/25 09:00 02/25/25 08:48 75 Mg Tablet PO Not Given DAILY TORIN Polyethylene Glycol 17 gm 02/25/25 09:00 02/25/25 08:47 Polyethylene Glycol 3350 17 Gm Packet PO 17 gm DAILY TORIN Administration Sodium Chloride 10 ml 02/24/25 15:22 02/25/25 06:36 Sodium Chloride Flush 0.9% 10 Ml Syringe IVP 10 ml PRN PRN Administration NEEDED PER PROVIDER ORDERS Sodium Chloride 10 ml 02/24/25 17:00 02/26/25 07:01 Sodium Chloride Flush 0.9% 10 Ml Syringe IVP 10 ml 0100,0900,1700 TORIN Administration Sodium Chloride 1 gm 02/25/25 08:00 02/25/25 08:47 Sodium Chloride 1 Gm Tablet PO 1 gm DAILYWM TORIN Administration Trazodone HCl 50 mg 02/24/25 15:58 02/25/25 23:02 Trazodone 50 Mg Tablet PO 50 mg QPM PRN Administration Insomnia Objective Vital Signs/Intake & Output Vital Signs: Vital Signs x48h Temp Pulse Resp BP Pulse Ox 02/26/25 05:03 36.6 C 64 20 119/61 97 02/25/25 23:53 36.6 C 66 20 122/64 96 Intake & Output: Intake & Output 02/23/25 02/24/25 02/25/25 02/26/25 23:59 23:59 23:59 23:59 Intake Total 370 / 370 966 / 966 Output Total 250 / 250 1300 / 1300 200 / 200 Balance 120 / 120 -334 / -334 -200 / -200 Weight (kg) 47.5 kg Objective Comments/Other: GEN: No acute distress HEENT: NC/AT, normal appearance of external ears and nose. Hearing baseline. Cardiac: Regular rate and rhythm. Systolic ejection murmur right upper sternal border Pulm: Lungs CTA bilaterally, no cough, no wheezes Abdomen: Soft, nontender, nondistended. No rebound or guarding Extremities: Moves all 4 extremities. Ecchymosis throughout bilateral extremities. Warmth and swelling in the left elbow. Neuro: Face symmetric, CN II through XII intact grossly. Gait exam deferred Psych: Mood euthymic. Affect congruent. Frustrated. Lab Results 02/24/25 07:20 02/24/25 08:16 Other Labs: Lab Results x24hrs 02/24/25 02/24/25 02/24/25 Range/Units 17:37 10:55 08:16 Sodium 136 (135-145) mmol/L Potassium 3.2 L (3.5-4.5) mmol/L Chloride 104 (101-111) mmol/L Carbon Dioxide 22 (21-32) mmol/L Anion Gap 10.0 (6-13) BUN 14 (6-20) mg/dL Creatinine 0.8 (0.6-1.3) mg/dL Estimated GFR (MDRD) 69 L (>89) Glucose 102 (74-104) mg/dL Calcium 8.5 (8.5-10.3) mg/dL Magnesium 2.2 (1.7-2.3) mg/dL Total Bilirubin 0.5 (0.2-1.0) mg/dL AST 19 (10-42) IU/L ALT 14 (10-60) IU/L Alkaline Phosphatase 67 (42-121) IU/L Troponin I High Sens 30.7 H* 33.8 H* (2.3-14.8) ng/L Total Protein 6.2 L (6.4-8.9) g/dL Albumin 3.8 (3.2-5.5) g/dL Globulin 2.4 (2.1-4.2) g/dL Albumin/Globulin Ratio 1.6 (1.0-2.2) Urine Color YELLOW Urine Clarity CLEAR (CLEAR) Urine pH 5.0 (5.0-7.5) PH Ur Specific [place] 1.005 (1.002-1.030) Urine Protein NEGATIVE (NEGATIVE) mg/dL Urine Glucose (UA) NEGATIVE (NEGATIVE) mg/dL Urine Ketones 40 H (NEGATIVE) mg/dL Urine Occult Blood TRACE-INTACT (NEGATIVE) Urine Nitrite NEGATIVE (NEGATIVE) Urine Bilirubin NEGATIVE (NEGATIVE) Urine Urobilinogen 0.2 (NORMAL) (NORMAL) E.U./dL Ur Leukocyte Esterase NEGATIVE (NEGATIVE) Urine RBC 0-5 (0-5) /HPF Urine WBC 0-3 (0-5) /HPF Ur Squamous Epith Cells FEW Squamous (<= Few) Urine Bacteria Few (None Seen) /HPF Assessment/Plan Problem List (1) Elbow pain, left: Impression: Stable. Patient continues to endorse pain that comes and goes, predominantly in her upper back and left arm. She is resting comfortably and I see her. There seems to be at least some psychological component to her pain. Reminded her again 02/26 to ask for pain medication if she needs it. Patient has been started on multimodal pain relief, does not find any particular modality helpful over another, reinforced that would continue all of these methods at this time then. Recall that she came in after fall as described below. Had extensive imaging on admission with no fracture present. She had CT of her arm. She does have a hematoma present. * Scheduled Tylenol 1 g 3 times daily * Topical diclofenac * Topical lidocaine patch * Heat/Ice * As needed narcotics available for breakthrough pain (2) Ground-level fall: Impression: Stable, unchanged. Pending discharge to SNF. Likely secondary to orthostatic hypotension in the setting of her previous spinal surgery with the neuropathic component. She has worked with multiple specialist in the past. She continues to exhibit orthostatic hypotension here while working with PT. She is on salt tabs. History of recurrent falls going back to the time of her spinal surgery in 2021. Recently hospitalized for an extended period at [facility] for a ground-level fall resulted in multiple left-sided rib fractures and clavicular fracture. She has balance issues and has tried multiple therapies to help with her disequilibrium, but has been unsuccessful despite working with multiple specialist. She presents this hospitalization after a ground-level fall while sitting on the commode at [facility] resulting in soft tissue injury to her left arm. 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 From fall at end of January. Recently discharged from [facility] on 02/23. Healing appropriately. Rib pain well-controlled. Qualifiers: Encounter type: subsequent encounter Fracture healing: with routine healing Fracture type: closed Qualified Code(s): S22.42XD - Multiple fractures of ribs, left side, subsequent encounter for fracture with routine healing (4) Clavicle fracture, shaft: Impression: Stable without any new concern. * The patient feels like she should limit her use of her left arm, however with normal healing, she should be at least okay light duty with her left arm. No longer in a sling. * Can advance to full use of her left arm by 6 weeks, tentatively end of February. Qualifiers: Encounter type: subsequent encounter Fracture type: closed Fracture alignment: nondisplaced Laterality: left Fracture healing: with routine healing Qualified Code(s): S42.025D - Nondisplaced fracture of shaft of left clavicle, subsequent encounter for fracture with routine healing (5) Major depress dis, severe: Impression: Stable to improved Patient has better appetite today. She is more conversant. Her family feels like she is resting better at night. Less anxious. I discussed with her that restarting on Remeron as of yesterday. This should help with her appetite, sleep and may help with her mood. She is agreeable. Recall that she has a longstanding history of depressed mood and hopelessness with her chronic illness. She has passive suicidal ideation and has never made any plans or take steps to act on those thoughts. She does not feel like she would. She has symptoms including anhedonia, hopelessness, sleep disturbance and poor appetite. * Continue mirtazapine nightly, continue at discharge * Vistaril as needed for anxiety * Consideration for further treatment with SSRI or SNRI deferred to primary care. (6) Overactive bladder: Impression: Worsened Patient feels like her urinary frequency is about baseline, but her sister is at bedside says that this seems more frequent. She is feeling an urge to void almost hourly. She is having difficulty voiding when that happens and she strains to void. Having small volume voids. I suspect this is mostly related to neurogenic bladder and not being on her Gemtesa for the last couple of days. Caregivers concerned about UTI. Recall that she has a long standing history of overactive bladder stemming back to her spinal surgery. She has met with multiple specialists and has a consultation with urology in March. * She should continue on Gemtesa, it is here and start today * Will get UA * Nursing assistance up to commode as she cannot urinate while supine, every 1-2 hours while awake * Discussed importance of timed voiding with the patient I spent a total of 41 minutes in management of this patient today including reviewing pertinent labs, imaging, medication administration record, vital signs and in discussion of the diagnosis and treatment plan with the patient.
[2025-02-26 10:31] LABS: GLUCOSE, URINE (UA) NEGATIVE (NEGATIVE); KETONES,URINE (UA) TRACE mg/dL (NEGATIVE); OCCULT BLOOD,URINE NEGATIVE (NEGATIVE)
[2025-02-26 10:37] LABS: SQUAMOUS EPITHELIAL CELL,UR FEW Squamous (<= Few)
[2025-02-26] MEDS: APIXABAN 2.5 MG TABLET PO SCH (21:27)
[2025-02-27 06:51] LABS: ALT ALANINE AMINOTRANSFERASE 13.0 IU/L (10-60); AST ASPARTATE AMINOTRANSFERASE 18.0 IU/L (10-42); BUN - BLOOD UREA NITROGEN 15.0 mg/dL (6-20); CARBON DIOXIDE - CO2 22.0 mmol/L (21-32); CREATININE 0.8 mg/dL (0.6-1.3); GFR - MDRD 69.0 (>89)
--- NOTE | 2025-02-27 07:12 | PROVIDER PROGRESS NOTE ---
Subjective Prog Note Date Prog Note Date: 02/27/25 Prog Note Time: 07:10 Subjective Pt reports feeling: No change Subjective: Patient increased anxiety last evening. She was reporting tightness in her upper extremities. Cardiac workup including EKG and troponin were both unremarkable. EKG was personally reviewed by me. It appears unchanged from her admission EKG. No signs of acute ischemia. Troponin lower than last check. She does have a chronic trop leak. She received benzodiazepines last night, Diet: General VTE PPx: DOAC Dispo: SNF, med ready now Code Status: DNR/DNI Current Medications Current Medications Current Medications: Current Medications Generic Name Dose Route Start Last Admin Trade Name Freq PRN Reason Stop Dose Admin Acetaminophen 1,000 mg 02/24/25 16:00 02/27/25 00:09 Acetaminophen 500 Mg Tablet PO 1,000 mg Q8H TORIN Administration Amiodarone HCl 100 mg 02/24/25 16:00 02/26/25 16:22 Amiodarone 200 Mg Tablet PO 100 mg Q24H TORIN Administration Amlodipine Besylate 7.5 mg 02/24/25 21:00 02/26/25 21:27 Amlodipine 5 Mg Tablet PO 7.5 mg QPM TORIN Administration Apixaban 2.5 mg 02/26/25 21:00 02/26/25 21:27 Apixaban 2.5 Mg Tablet PO 2.5 mg BID TORIN Administration Atorvastatin Calcium 10 mg 02/24/25 21:00 02/26/25 21:28 Atorvastatin 10 Mg Tablet PO 10 mg QPM TORIN Administration Cholecalciferol 12.5 mcg 02/25/25 09:00 02/26/25 08:13 Cholecalciferol 25 Mcg Tablet PO 12.5 mcg DAILY TORIN Administration Diazepam 5 mg 02/26/25 23:17 02/27/25 01:20 Diazepam 5 Mg Tablet PO 5 mg QPM PRN Administration Agitation Diclofenac Sodium 4 gm 02/24/25 17:00 02/26/25 21:35 Diclofenac Sodium 1% Gel 50 Gm Tube TOP 4 gm QID TORIN Administration Hydromorphone HCl 0.5 mg 02/24/25 15:22 02/25/25 06:37 Hydromorphone 0.5 Mg/0.5 Ml Syringe IVP 0.5 mg Q2H PRN Administration Pain 8 to 10 Hydroxyzine Pamoate 25 mg 02/24/25 15:53 02/26/25 17:33 Hydroxyzine Pamoate 25 Mg Capsule PO 25 mg TID PRN Administration Anxiety Lidocaine 1 patch 02/25/25 09:00 02/26/25 12:08 Lidocaine Patch 4% TOP Not Given DAILY TORIN Melatonin 3 mg 02/25/25 17:00 02/26/25 17:26 Melatonin 3 Mg Tablet PO 3 mg QDDINNER TORIN Administration Mirtazapine 15 mg 02/25/25 21:00 02/26/25 21:27 Mirtazapine 15 Mg Tablet PO 15 mg QPM TORIN Administration Ondansetron HCl 4 mg 02/24/25 15:22 Ondansetron Odt 4 Mg Tablet TL Q6HR PRN Nausea / Vomiting Ondansetron HCl 4 mg 02/24/25 15:22 Ondansetron 4 Mg/2 Ml Vial IVP Q6HR PRN Nausea / Vomiting Oxycodone HCl 5 mg 02/24/25 15:22 02/27/25 02:28 Oxycodone 5 Mg Tablet PO 5 mg Q4HR PRN Administration Pain Vibegron [Gemtesa] 1 each 02/25/25 09:00 02/26/25 08:35 75 Mg Tablet PO 1 each DAILY TORIN Administration Polyethylene Glycol 17 gm 02/25/25 09:00 02/26/25 08:35 Polyethylene Glycol 3350 17 Gm Packet PO Not Given DAILY TORIN Potassium Chloride 40 meq 02/27/25 09:00 Potassium Chloride 20 Meq Tablet PO ONCE TORIN Sodium Chloride 10 ml 02/24/25 15:22 02/25/25 06:36 Sodium Chloride Flush 0.9% 10 Ml Syringe IVP 10 ml PRN PRN Administration NEEDED PER PROVIDER ORDERS Sodium Chloride 10 ml 02/24/25 17:00 02/27/25 00:14 Sodium Chloride Flush 0.9% 10 Ml Syringe IVP 10 ml 0100,0900,1700 TORIN Administration Sodium Chloride 1 gm 02/25/25 08:00 02/26/25 08:13 Sodium Chloride 1 Gm Tablet PO 1 gm DAILYWM TORIN Administration Trazodone HCl 50 mg 02/24/25 15:58 02/27/25 00:09 Trazodone 50 Mg Tablet PO 50 mg QPM PRN Administration Insomnia Objective Vital Signs/Intake & Output Vital Signs: Vital Signs x48h Temp Pulse Resp BP Pulse Ox 02/27/25 05:27 36.5 C 87 16 152/93 H 95 02/26/25 23:52 36.3 C L 88 16 149/87 H 96 Intake & Output: Intake & Output 02/24/25 02/25/25 02/26/25 02/27/25 23:59 23:59 23:59 23:59 Intake Total 370 / 370 966 / 966 600 / 600 300 / 300 Output Total 250 / 250 1300 / 1300 1100 / 1100 650 / 650 Balance 120 / 120 -334 / -334 -500 / -500 -350 / -350 Weight (kg) 47.5 kg Objective Comments/Other: GEN: No acute distress HEENT: NC/AT, normal appearance of external ears and nose. Hearing baseline. Cardiac: Regular rate and rhythm. Systolic ejection murmur right upper sternal border Pulm: Lungs CTA bilaterally, no cough, no wheezes Abdomen: Soft, nontender, nondistended. No rebound or guarding Extremities: Moves all 4 extremities. Ecchymosis throughout bilateral extremities. Warmth and swelling in the left elbow. Neuro: Face symmetric, CN II through XII intact grossly. Gait exam deferred Psych: Mood euthymic. Affect congruent. Frustrated. Lab Results 02/24/25 07:20 02/27/25 06:01 Other Labs: Lab Results x24hrs 02/27/25 02/26/25 02/26/25 Range/Units 06:01 19:19 10:12 Sodium 131 L (135-145) mmol/L Potassium 3.2 L (3.5-4.5) mmol/L Chloride 100 L (101-111) mmol/L Carbon Dioxide 22 (21-32) mmol/L Anion Gap 9.0 (6-13) BUN 15 (6-20) mg/dL Creatinine 0.8 (0.6-1.3) mg/dL Estimated GFR (MDRD) 69 L (>89) Glucose 102 (74-104) mg/dL Calcium 8.7 (8.5-10.3) mg/dL Total Bilirubin 0.6 (0.2-1.0) mg/dL AST 18 (10-42) IU/L ALT 13 (10-60) IU/L Alkaline Phosphatase 63 (42-121) IU/L Troponin I High Sens 24.5 H* (2.3-14.8) ng/L Total Protein 6.4 (6.4-8.9) g/dL Albumin 3.8 (3.2-5.5) g/dL Globulin 2.6 (2.1-4.2) g/dL Albumin/Globulin Ratio 1.5 (1.0-2.2) Urine Color YELLOW Urine Clarity CLEAR (CLEAR) Urine pH 7.0 (5.0-7.5) PH Ur Specific [place] 1.010 (1.002-1.030) Urine Protein NEGATIVE (NEGATIVE) mg/dL Urine Glucose (UA) NEGATIVE (NEGATIVE) mg/dL Urine Ketones TRACE (NEGATIVE) mg/dL Urine Occult Blood NEGATIVE (NEGATIVE) Urine Nitrite NEGATIVE (NEGATIVE) Urine Bilirubin NEGATIVE (NEGATIVE) Urine Urobilinogen 0.2 (NORMAL) (NORMAL) E.U./dL Ur Leukocyte Esterase SMALL H (NEGATIVE) Urine RBC 0-5 (0-5) /HPF Urine WBC 4-5 (0-5) /HPF Ur Squamous Epith Cells FEW Squamous (<= Few) Urine Bacteria Few (None Seen) /HPF Urine Culture Comments INDICATED Assessment/Plan Problem List (1) Elbow pain, left: Impression: Stable. Patient continues to endorse pain that comes and goes, predominantly in her upper back and left arm. She is resting comfortably and I see her. There seems to be at least some psychological component to her pain. Reminded her again 02/26 to ask for pain medication if she needs it. Patient has been started on multimodal pain relief, does not find any particular modality helpful over another, reinforced that would continue all of these methods at this time then. Recall that she came in after fall as described below. Had extensive imaging on admission with no fracture present. She had CT of her arm. She does have a hematoma present. * Scheduled Tylenol 1 g 3 times daily * Topical diclofenac * Topical lidocaine patch * Heat/Ice * As needed narcotics available for breakthrough pain (2) Ground-level fall: Impression: Stable, unchanged. Pending discharge to SNF. Likely secondary to orthostatic hypotension in the setting of her previous spinal surgery with the neuropathic component. She has worked with multiple specialist in the past. She continues to exhibit orthostatic hypotension here while working with PT. She is on salt tabs. History of recurrent falls going back to the time of her spinal surgery in 2021. Recently hospitalized for an extended period at [facility] for a ground-level fall resulted in multiple left-sided rib fractures and clavicular fracture. She has balance issues and has tried multiple therapies to help with her disequilibrium, but has been unsuccessful despite working with multiple specialist. She presents this hospitalization after a ground-level fall while sitting on the commode at [facility] resulting in soft tissue injury to her left arm. 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 From fall at end of January. Recently discharged from [facility] on 02/23. Healing appropriately. Rib pain well-controlled. Qualifiers: Encounter type: subsequent encounter Fracture healing: with routine healing Fracture type: closed Qualified Code(s): S22.42XD - Multiple fractures of ribs, left side, subsequent encounter for fracture with routine healing (4) Clavicle fracture, shaft: Impression: Stable without any new concern. * The patient feels like she should limit her use of her left arm, however with normal healing, she should be at least okay light duty with her left arm. No longer in a sling. * Can advance to full use of her left arm by 6 weeks, tentatively end of February. Qualifiers: Encounter type: subsequent encounter Fracture alignment: nondisplaced Fracture healing: with routine healing Fracture type: closed Laterality: left Qualified Code(s): S42.025D - Nondisplaced fracture of shaft of left clavicle, subsequent encounter for fracture with routine healing (5) Major depress dis, severe: Impression: Stable to improved Patient has better appetite today. She is more conversant. Her family feels like she is resting better at night. Less anxious. I discussed with her that restarting on Remeron as of yesterday. This should help with her appetite, sleep and may help with her mood. She is agreeable. Recall that she has a longstanding history of depressed mood and hopelessness with her chronic illness. She has passive suicidal ideation and has never made any plans or take steps to act on those thoughts. She does not feel like she would. She has symptoms including anhedonia, hopelessness, sleep disturbance and poor appetite. * Continue mirtazapine nightly, continue at discharge * Vistaril as needed for anxiety * Consideration for further treatment with SSRI or SNRI deferred to primary care. (6) Overactive bladder: Impression: Worsened Patient feels like her urinary frequency is about baseline, but her sister is at bedside says that this seems more frequent. She is feeling an urge to void almost hourly. She is having difficulty voiding when that happens and she strains to void. Having small volume voids. I suspect this is mostly related to neurogenic bladder and not being on her Gemtesa for the last couple of days. Caregivers concerned about UTI. Recall that she has a long standing history of overactive bladder stemming back to her spinal surgery. She has met with multiple specialists and has a consultation with urology in March. * She should continue on Gemtesa, it is here and start today * Will get UA * Nursing assistance up to commode as she cannot urinate while supine, every 1-2 hours while awake * Discussed importance of timed voiding with the patient I spent a total of 41 minutes in management of this patient today including reviewing pertinent labs, imaging, medication administration record, vital signs and in discussion of the diagnosis and treatment plan with the patient.
[2025-02-27] MEDS: POTASSIUM CHLORIDE 20 MEQ TABLET PO ONE (09:26)
--- NOTE | 2025-02-27 13:39 | Discharge Summary ---
"Discharge Summary Admit Date: 02/24/25 Discharge Date: 02/27/25 Discharging Provider: Abundio Butterfield Primary Care Provider: Josette Merchant Code Status: Do Not Attempt Resuscitation Discharge Facility Name: [facility] DIAGNOSES Discharge Diagnoses with Status of Each Condition: Soft tissue injury of the left elbow, improved Ground-level fall history of recurrent falls, chronic Orthostatic hypotension, chronic, improved Multiple fractures of the ribs on the left, subsequent visit, routine healing Clavicle fracture of the left, subsequent visit, routine healing Major depressive disorder, severe, chronic, improved Neurogenic bladder, chronic, stable HPI History of Present Illness: Ms. Ebonie Pinto is a very pleasant 79-year-old female with unfortunate history of cervical spinal fracture in 2021 with resultant disequilibrium and balance issues since that point in time complicated by multiple subsequent falls. She recently was hospitalized at [facility] for a traumatic ground-level fall where she had multiple rib fractures and her left chest as well as a clavicular fracture. She was actually just discharged from [facility] on the day prior to this admission. Her hospitalization at [facility] was extended due to issues with disposition. She was discharged to SNF for ongoing rehabilitation. She just made it to [facility] yesterday when she had another fall from the commode last evening resulting in injury to her left elbow. She was admitted primarily for pain management and disposition planning to observation. After extensive imaging review of her elbow she does not have a fracture, but is extremely tender to palpation and is having intermittent 10 out of 10 pain. Her previous hospitalizations have been complicated by owning and anxiety/agitation. Furthermore in her history, she had an [id number] cardiac arrest in 2020. 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 She denies any chest pain at this time. On top of all of the above, she is quite depressed from her multiple chronic conditions and ongoing pain. She feels like she is not as active as she would be otherwise worked up for injuries and balance issues. She states several times that she wishes to , and her says that she has also stated similar things over the previous months. She denies being overtly depressed, but I did point out to her that she has multiple symptoms that she is expressing CONSULTS | PROCEDURES Procedures: Trauma evaluation in the ED X-ray and CT of the left arm HOSPITAL COURSE Hospital Course: Mr. Pinto is an 79-year-old female with a remote history of C-spine fracture and subsequent orthostatic hypotension, imbalance, and multiple falls. She had recent fall in January resulting in multiple rib fractures and left clavicle fracture. She was hospitalized at [facility] and improved. She was discharged from [facility] to local nursing facility where she had another ground-level fall with only soft tissue injuries to her left arm. She was admitted for pain management and further therapy evaluation. Therapies recommend her to return to SNF for ongoing treatment. Her imbalance issues are further complicated by the fact that she has a neurogenic bladder that is hyperactive. She has been started on Gemtessa after failing many prior options. Her urologist is local is referred her to the [facility] and she apparently has an appointment in March. She has a history of depression including passive suicidal ideation. She does not see much reason to continue living given her low quality of life. She has explored [facility] in the past, but has been informed that she does not qualify given that she does not have a terminal condition. Her family remained at bedside for most of the hospitalization. Their presence was comforting for the patient. She was started on as needed Vistaril, nightly mirtazapine with some improvement in her anxiety. She did require a dose of diazepam for anxiety, insomnia and muscle spasms related to her C-spine injury. She is most helpful at night. She has been prescribed mirtazapine, and nightly as needed diazepam moving forward. I have encouraged the patient to reach out to her primary care and see if she can get a referral to palliative care given her complex symptom management. I would consider for her a suprapubic tube in the future if she is unable to manage her neurogenic bladder symptoms with medications. ALLERGIES Allergies Allergy/AdvReac Type Severity Reaction Status Date / Time atenolol Allergy Unknown Anaphylaxis Verified 02/24/25 07:18 levofloxacin Allergy Unknown Anaphylaxis Verified 02/24/25 07:18 peanut Allergy Unknown Verified 02/24/25 07:18 walnut Allergy Unknown Verified 02/24/25 07:18 adhesive AdvReac Rash Verified 02/24/25 07:18 amoxicillin trihydrate * AdvReac Hives Verified 02/24/25 07:18 (From Augmentin) lisinopril AdvReac Unknown Verified 02/24/25 07:18 potassium clavulanate * AdvReac Hives Verified 02/24/25 07:18 (From Augmentin) sulfamethoxazole (From AdvReac Hives Verified 02/24/25 07:18 Septra) trimethoprim (From Septra) AdvReac Hives Verified 02/24/25 07:18 MEDICATIONS Ambulatory Orders Medication Instructions Recorded Confirmed Permanent Disabled Placard 04/03/24 02/24/25 acetaminophen 325 mg capsule 650 mg (2 x 325 mg) PO Q6 H PRN 12/31/24 02/25/25 pain #30 caps atorvastatin 10 mg tablet 10 mg PO QPM #30 tabs 02/25/25 cholecalciferol (vitamin D3) 50 1,000 unit PO DAILY #3 0 caps 12/31/24 02/25/25 mcg (2,000 unit) capsule (D3-1999) rxrpvibazbsq-bghgfoxv-zary 1 tab PO DAILYWM #90 tabs 0 12/31/24 02/25/25 fumarate 19 mg-folic acid 400 mcg tablet (Therapeutic-M) trazodone 50 mg tablet 50 mg PO QPM PRN Insomnia #3 0 tabs 12/31/24 02/25/25 vibegron 75 mg tablet (Gemtesa) 75 mg PO DAILY #30 tab s 12/31/24 02/25/25 calcium 600 mg (as 1 tab PO BID 02/24/25 carbonate)-vitamin D3 5 mcg (200 unit) tablet (Calcium 600 + D(3)) diclofenac sodium 1 % topical gel 4 g topical QID 02/0902/25/25 lidocaine 4 % topical patch 1 patch topical DAILY 02/0902/25/25 (Lidocare) oxycodone 5 mg tablet 5 mg PO Q8H PRN pain 5 02/25/25 amiodarone 100 mg tablet 50 mg PO DAILY 02/25/2502/09 amlodipine 2.5 mg tablet (Norvasc) 2.5 mg PO QPM 02/2502/25/25 amlodipine 5 mg tablet 5 mg PO QPM 02/25/25 5 bisacodyl 10 mg rectal suppository 10 mg LA DAILY PRN constipation 02/25/25 02/25/25 (Dulcolax (bisacodyl)) ergocalciferol (vitamin D2) 1,250 1,250 mcg PO QWEEK 0 02/25/25 02/25/25 mcg (50,000 unit) capsule mineral oil (Fleet Mineral Oil 118 ml LA DAILY PRN con stipation 02/25/25 02/25/25 enema) naloxone 4 mg/actuation nasal 4 mg intranasal Q2M 02/0902/25/25 spray (Narcan) polyethylene glycol 3350 17 17 g PO QAM 02/25/2502/25 gram/dose oral powder (ClearLax) sodium chloride 1,000 mg soluble 1,000 mg PO BID 02/2502/25/25 tablet acetaminophen 500 mg tablet 1,000 mg (2 x 500 mg) PO Q 8H 30 02/27/25 (Tylenol Extra Strength) days #180 tabs apixaban 2.5 mg tablet (Eliquis) 2.5 mg PO BID #30 tab s 02/27/25 diazepam 5 mg tablet 5 mg PO QPM PRN muscle spasm #30 02/27/25 tabs hydroxyzine pamoate 25 mg capsule 25 mg PO TID PRN Anx iety #90 caps 02/27/25 melatonin 3 mg capsule 6 mg (2 x 3 mg) PO QDDINNER #30 02/27/25 02/25/25 caps mirtazapine 15 mg tablet 15 mg PO QPM #30 tabs sennosides 8.6 mg tablet 8.6 mg PO DAILY PRN constipa tion 02/27/25 02/25/25 #30 tabs PHYSICAL EXAM AT DISCHARGE Vital Signs: Vital Signs x48h Temp Pulse Resp BP Pulse Ox 02/27/25 09:00 36.5 C 87 18 137/77 H 95 GEN: No acute distress, Seated in chair. HEENT: NC/AT, normal appearance of external ears and nose. Hearing baseline. Cardiac: Regular rate and rhythm. Systolic ejection murmur at right upper sternal border. Pulm: Lungs CTA bilaterally, no cough, no wheezes Abdomen: Soft, nontender, nondistended. No rebound or guarding Extremities: Moves all 4 extremities. Ecchymosis throughout bilateral Upper extremities. Warmth and swelling in the left elbow. Neuro: Face symmetric, CN II through XII intact grossly. No focal neurologic deficits. Gait exam deferred Psych: Mood euthymic with a flattened affect. Frustrated. LABS 02/24/25 07:20 02/27/25 06:01 FOLLOW UP Follow Up: Patient will discharge to SNF for ongoing rehab Follow-up with primary care thereafter Patient has appointment with urology at the [facility] in March. TIME SPENT Time Spent in Discharge (Minutes): 61 Discharge Plan Discharge Patient Disposition: [facility] DC/Xfer Condition: Stable Medically Cleared Date:: 02/27/25 Prescriptions: New acetaminophen [Tylenol Extra Strength] 500 mg Tablet 1,000 mg PO Q8H 30 Days Qty: 180 0RF mirtazapine 15 mg Tablet 15 mg PO QPM Qty: 30 0RF diazepam 5 mg Tablet 5 mg PO QPM PRN (Reason: muscle spasm) Qty: 30 0RF hydroxyzine pamoate 25 mg Capsule 25 mg PO TID PRN (Reason: Anxiety) Qty: 90 0RF Eliquis 2.5 mg Tablet 2.5 mg PO BID Qty: 30 0RF Continued (DME) Permanent Disabled Placard Misc See Rx Instructions .Route Rx Instructions: As directed trazodone 50 mg Tablet 50 mg PO QPM PRN (Reason: Insomnia) Qty: 30 0RF atorvastatin 10 mg tablet 10 mg PO QPM Qty: 30 0RF acetaminophen 325 mg capsule 650 mg PO Q6H PRN (Reason: pain) Qty: 30 0RF cholecalciferol (vitamin D3) [D3-2000] 2,000 UNIT capsule 1,000 unit PO DAILY Qty: 30 0RF Gemtesa 75 mg tablet 75 mg PO DAILY Qty: 30 0RF Therapeutic-M 19 mg iron- 400 mcg Tablet 1 tab PO DAILYWM Qty: 90 0RF calcium carbonate-vitamin D3 [Calcium 600 + D(3)] 600 mg-5 mcg (200 unit) tablet 1 tab PO BID diclofenac sodium 1 % gel 4 g topical QID Rx Instructions: apply to single knee, ankle, foot; for foot includes sole/toes/top of foot oxycodone 5 mg tablet 5 mg PO Q8H PRN (Reason: pain) lidocaine [Lidocare] 4 % adhesive patch,medicated 1 patch topical DAILY amiodarone 100 mg tablet 50 mg PO DAILY bisacodyl [Dulcolax (bisacodyl)] 10 mg suppository 10 mg LA DAILY PRN (Reason: constipation) Rx Instructions: Insert 1 suppository rectally as needed for DAY 5 without a bowel movement give on day shift. mineral oil [Fleet Mineral Oil] Enema 118 ml LA DAILY PRN (Reason: constipation) Rx Instructions: Insert 1 unit rectally as needed for Day 6 without a bowel movement. If not effective, contact the MD immediately. polyethylene glycol 3350 [ClearLax] 17 gram/dose powder 17 g PO QAM Rx Instructions: Give 17 gram by mouth in the morning for bowel regularity. naloxone [Narcan] 4 mg/actuation spray,non-aerosol 4 mg intranasal Q2M Rx Instructions: 1 spray Alternating nostrils as needed for suspected opioid overdose repeat every 2-3 minutes in alternating nostrils PRN. Each device contains a single dose. Seek immediate medical attention after admin of 1st dose. Monitor res closely until emergency medical personnel arrive and for at least 24 hours after admin. amlodipine [Norvasc] 2.5 mg tablet 2.5 mg PO QPM Rx Instructions: Take with 5 mg tab for total dose of 7.5 mg. Hold if SBP<110 OR hr <60. amlodipine 5 mg tablet 5 mg PO QPM Rx Instructions: take with 2.5mg daily for total of 7.5mg daily. Hold if SBP <110 or HR is <60 ergocalciferol (vitamin D2) 1,250 mcg (50,000 unit) capsule 1,250 mcg PO QWEEK Rx Instructions: Give 1 capsule by mouth once per week on for supplement. sodium chloride 1,000 mg Tablet,Soluble 1,000 mg PO BID Changed sennosides 8.6 mg tablet 8.6 mg PO DAILY PRN (Reason: constipation) Qty: 30 0RF melatonin 3 mg capsule 6 mg PO QDDINNER Qty: 30 0RF Discontinued polyethylene glycol 3350 [ClearLax] 17 gram/dose powder 17 g PO DAILY PRN (Reason: constipation) Rx Instructions: Give 17 gram by mouth as needed for Day 3 without a bowel movement. Mix with 8 ounces of liquid. Give on day shift. Eliquis 5 mg tablet 5 mg PO BID Qty: 60 0RF sennosides [Freda-brinda] 8.6 mg tablet 17.2 mg PO ONCE PRN (Reason: constipation) Rx Instructions: Give 2 tablet by mouth as needed for Day 4 without a bowel movement give in evening. Diet: Regular Health Concerns: You are admitted with a ground-level fall and injury to your left arm. Thankfully there was no fracture of the bone. You are treated with multiple agents for pain relief. Additionally started on medications for your anxiety. You are being discharged to a rehab facility for ongoing strengthening given your multiple falls and balance issues. I would advise that you reach out to your primary care doctor, and begin to engage with palliative care as they may be able to better manage your symptoms in the long-term. Print Language: [place] Patient Instructions: Diazepam Stand Alone Forms: SNF Discharge Follow-up Care: Josette Merchant MD [Primary Care Provider, Family Practice] Vitals documented within 30 minutes of discharge?: Yes"
[2025-02-27 16:11] VITALS: BP 115/58; TEMP 97.5; O2SAT 96
== END 2025-02-28 11:29 ==
LOC: MS2 07:17 → ED 07:17 → MS2 14:23 → MS3 02-28 04:51
PROVIDERS: ADMIT Student in an Organized Health Care Education/Training Program; ATTEND Student in an Organized Health Care Education/Training Program